=== PATIENT | female | born 1975 | race Caucasian/White ===

== ENCOUNTER 2018-04-08 09:37 | Emergency (ER) | payer SELFPAY ==
[2018-04-08 09:42] VITALS: BP 147/70
[2018-04-08] MEDS ORDERED: NORMAL SALINE 1000 ML 1,000 ML IV ONE ×2 (10:43)
--- NOTE | 2018-04-08 10:44 | ER Document Report ---
ED Medical Screen (RME) - General Chief Complaint: Abdominal Pain Stated Complaint: ABDOMINAL PAIN Time Seen by Provider: 04/08/18 10:38 TRAVEL OUTSIDE OF THE U.S. IN LAST 30 DAYS: No - HPI Notes: 04/08/18 10:44 Patient with history of diverticulitis history of colostomy with lower abdominal pain last 2 days no change in output from colostomy - Related Data Allergies/Adverse Reactions: No Known Allergies Allergy (Unverified 04/08/18 09:48) Past Medical History - Social History Chew tobacco use (# tins/day): No Frequency of alcohol use: None Drug Abuse: None Renal/ Medical History: Reports: Hx Ovarian Cysts. Denies: Hx Peritoneal Dialysis Past Surgical History: Reports: Hx Bowel Surgery - COLOSTOMY Review of Systems - Review of Systems Gastrointestinal: Abdominal pain Physical Exam - Vital signs Vitals: Temp Pulse Resp BP Pulse Ox 97.9 F 88 16 147/70 H 96 04/08/18 09:41 04/08/18 09:41 04/08/18 09:41 04/08/18 09:41 04/08/18 09:41 - Respiratory Respiratory status: No respiratory distress Chest status: Nontender Breath sounds: Normal Chest palpation: Normal - Cardiovascular Rhythm: Regular Heart sounds: Normal auscultation Course - Vital Signs Vital signs: Temp Pulse Resp BP Pulse Ox 97.9 F 88 16 147/70 H 96 04/08/18 09:41 04/08/18 09:41 04/08/18 09:41 04/08/18 09:41 04/08/18 09:41
[2018-04-08 11:50] LABS: ABSOLUTE EOSINOPHILS # (AUTO) 0.1 10^3/uL (0.0-0.6); ABSOLUTE LYMPHOCYTES (AUTO) 3.2 10^3/uL (0.5-4.7); ABSOLUTE MONOCYTES (AUTO) 0.8 10^3/uL (0.1-1.4); ABSOLUTE NEUT (AUTO) 7.2 10^3/uL (1.7-8.2); BASOPHILS % (AUTO) 0.1 % (0-2); EOSINOPHILS % (AUTO) 0.9 % (0-6); HEMATOCRIT 40.9 % (36.0-47.0); HEMOGLOBIN 14.3 g/dL (12.0-15.5); LYMPHOCYTES % (AUTO) 28.3 % (13-45); MEAN CORPUSCULAR HEMOGLOBIN 30.9 pg (27.0-33.4); MEAN CORPUSCULAR VOLUME 88 fl (80-97); MONOCYTES % (AUTO) 6.7 % (3-13); PLATELET COUNT 293 10^3/uL (150-450); RED BLOOD COUNT 4.63 10^6/uL (3.72-5.28); TOTAL CELLS COUNTED % (AUTO) 100 %; WHITE BLOOD COUNT 11.3 10^3/uL (4.0-10.5)
[2018-04-08 12:15] LABS: ALANINE AMINOTRANSFERASE 30 U/L (9-52); ALBUMIN 4.4 g/dL (3.5-5.0); ALKALINE PHOSPHATASE 79 U/L (38-126); ANION GAP 9 (5-19); ASPARTATE AMINO TRANSFERASE 23 U/L (14-36); BILIRUBIN,DIRECT 0.4 mg/dL (0.0-0.4); BILIRUBIN,TOTAL 0.4 mg/dL (0.2-1.3); BLOOD UREA NITROGEN 13 mg/dL (7-20); CALCIUM 9.6 mg/dL (8.4-10.2); CARBON DIOXIDE 28 mmol/L (22-30); CHLORIDE 102 mmol/L (98-107); GLUCOSE 111 mg/dL (75-110); LIPASE 48.5 U/L (23-300); POTASSIUM 4.3 mmol/L (3.6-5.0); SODIUM 138.9 mmol/L (137-145); TOTAL PROTEIN 7.9 g/dL (6.3-8.2)
--- NOTE | 2018-04-08 12:26 | RADIOLOGY REPORT (SQ) ---
EXAM DESCRIPTION: CT ABD/PELVIS WITH IV ONLY COMPLETED DATE/TIME: 04/08/2018 11:42 am REASON FOR STUDY: Lower abd pain hx of diverticulitis COMPARISON: None. TECHNIQUE: CT scan of the abdomen and pelvis performed using helical scanning technique with dynamic intravenous contrast injection. No oral contrast. Images reviewed with lung, soft tissue, and bone windows. Reconstructed coronal and sagittal MPR images reviewed. Delayed images for evaluation of the urinary system also acquired. All images stored on PACS. All CT scanners at this facility use dose modulation, iterative reconstruction, and/or weight based d osing when appropriate to reduce radiation dose to as low as reasonably achievable (ALARA). [facility]: Dose Right [facility]: CareDose [facility]: Dose Right [facility]: Teradose 4D [facility]: TopPatch CONTRAST TYPE AND DOSE: contrast/concentration: Isovue 350.00 mg/ml; Total Contrast Delivered: 99.0 ml; Total Saline Delivered: 62.6 ml RENAL FUNCTION: None required. The patient is less than 50 years old. RADIATION DOSE: CT Rad equipment meets quality standard of care and radiation dose reduction techniq ues were employed. CTDIvol: 19.7 - 20.8 mGy. DLP: 2146 mGy-cm.. LIMITATIONS: None. FINDINGS: LOWER CHEST: No significant findings. No nodules or infiltrates. LIVER: Normal size. No masses. No dilated ducts. SPLEEN: Normal size. No focal lesions. PANCREAS: No masses. No significant calcifications. No adjacent inflammation or peripancreatic fluid collections. Pancreatic duct not dilated. GALLBLADDER: No identified stones by CT criteria. No inflammatory changes to suggest cholecystitis. ADRENAL GLANDS: No significant masses or asymmetry. RIGHT KIDNEY AND URETER: No solid masses. No significant calcifications. No hydronephrosis or hyd roureter. LEFT KIDNEY AND URETER: No solid masses. No significant calcifications. No hydronephrosis or hydr oureter. AORTA AND VESSELS: No aneurysm. No dissection. Renal arteries, SMA, celiac without stenosis. RETROPERITONEUM: No retroperitoneal adenopathy, hemorrhage or masses. BOWEL AND PERITONEAL CAVITY: No masses or inflammatory changes. No free fluid or peritoneal masses. APPENDIX: Normal. PELVIS: No mass. No free fluid. Normal bladder. ABDOMINAL WALL: Large left lower quadrant anterior abdominal wall hernia containing nondilated bowel. Defect approaches 6 cm. Smaller fat containing umbilical hernia. BONES: No significant or acute findings. OTHER: No other significant finding. IMPRESSION: Large left lower quadrant abdominal wall hernia. No evidence of bowel obstruction. TECHNICAL DOCUMENTATION: JOB ID: [id number] Quality ID # [id number]: Final reports with documentation of one or more dose reduction techniques (e.g., Au tomated exposure control, adjustment of the mA and/or kV according to patient size, use of iterative reconstruction technique) 2010 [employer]- All Rights Reserved Reading location - IP/workstation name: [email or web address]
[2018-04-08] MEDS ORDERED: KETOROLAC TROMETHAMINE INJ/PF 30 MG/1 ML SDV IV ONE (12:56)
--- NOTE | 2018-04-08 13:40 | ER Document Report ---
ED GI/ - General Chief Complaint: Abdominal Pain Stated Complaint: ABDOMINAL PAIN Time Seen by Provider: 04/08/18 10:38 Mode of Arrival: Ambulatory Information source: Patient Notes: Patient is a 42-year-old obese female comes emergency room complaining of left lower quadrant pain. Patient states that she also is not in the ruptured diverticuli or that is diverticulitis. She states for the past couple of days she has had a ripping feeling every time she sits or stands. As stated she has a history of diverticulitis she actually ruptured diverticuli back in February of last year and she has had a colostomy placement. Just after the original rupture patient had multiple infections that affected the colostomy area patient also developed a large abdominal wall hernia at that time because of all this. Dr. Dajuan alvarenga in [facility] here in [place] did the original surgery. This [facility] is presumably an hour away from [place]. Patient states she just moved to the local area. She denies any fevers no nausea no vomiting no diarrhea. Just the feeling of pain. And it is a ripping type pain. TRAVEL OUTSIDE OF THE U.S. IN LAST 30 DAYS: No - HPI Patient complains to provider of: Abdominal pain. No: Vaginal discharge - 2 days, Vaginal pain Timing/Duration: Sudden, Waxing and waning, Worse Quality of pain: Other - Gripping feeling Severity at maximum: Moderate Pain Level: 3 Context: Other - Movement Location: [facility] Adult Front & Back Diagram: 1 - Area of pain discomfort in the area of the abdominal wall hernia end colostomy Vaginal bleeding (Compared to normal period): None LMP: 1 week ago - Related Data Allergies/Adverse Reactions: No Known Allergies Allergy (Unverified 04/08/18 09:48) Past Medical History - General Information source: Patient Last Menstrual Period: 1 week ago - Social History Smoking Status: Current Every Day Smoker Cigarette use (# per day): Yes Chew tobacco use (# tins/day): No Smoking Education Provided: Yes Frequency of alcohol use: None Drug Abuse: None Family History: Reviewed & Not Pertinent Patient has suicidal ideation: No Patient has homicidal ideation: No Renal/ Medical History: Reports: Hx Ovarian Cysts. Denies: Hx Peritoneal Dialysis Past Surgical History: Reports: Hx Bowel Surgery - COLOSTOMY Review of Systems - Review of Systems Constitutional: No symptoms reported EENT: No symptoms reported Cardiovascular: No symptoms reported Respiratory: No symptoms reported Gastrointestinal: Abdominal pain Genitourinary: No symptoms reported Female Genitourinary: No symptoms reported Musculoskeletal: No symptoms reported Skin: No symptoms reported Hematologic/Lymphatic: No symptoms reported Neurological/Psychological: No symptoms reported -: Yes All other systems reviewed and negative Physical Exam - Vital signs Vitals: Temp Pulse Resp BP Pulse Ox 97.9 F 88 16 147/70 H 96 04/08/18 09:41 04/08/18 09:41 04/08/18 09:41 04/08/18 09:41 04/08/18 09:41 Interpretation: Hypertensive - Notes Notes: Patient is a well-nourished well-developed obese 42-year-old female. No apparent distress. Actually resting comfortably. - General General appearance: Appears well, Alert - Respiratory Respiratory status: No respiratory distress Chest status: Nontender, Tender Breath sounds: Normal. No: Rales, Rhonchi, Stridor, Wheezing Chest palpation: Normal - Cardiovascular Rhythm: Regular Heart sounds: Normal auscultation Murmur: No - Abdominal Inspection: Striae, Obese Distension: Distended Bowel sounds: Normal Tenderness: Tender Organomegaly: No organomegaly Notes: Examination patient's abdomen shows that she has a large rotund lower abdominal exam. She has a colostomy that she does not wear a bag on. She only uses a diaper to catch the fecal material. Examination of the area is shows pinkish flesh tone color that appears to be healthy. There is no sign of infection or erythema surrounding the entire area. Descending below the umbilicus is a large herniated area that he was described on the CT that shows no incarceration and no obstruction and no strangulation. The presentation is quite astounding. Palpation of this area shows some mild tenderness but no overt pain. Further inspection much further below the area shows increasing amount of tenderness. The tenderness is more along the line of the scar tissue that I could palpate. Movement away from midline by stretching increases discomfort and pain. - Neurological Neuro grossly intact: Yes Cognition: Normal Orientation: AAOx4 [place] Coma Scale Eye Opening: Spontaneous [place] Coma Scale Verbal: Oriented [place] Coma Scale Motor: Extensor Response [place] Coma Scale Total: 11 Speech: Normal - Skin Skin Temperature: Warm Skin Moisture: Dry Skin Color: Normal, [place] Irregularity with: Swelling, Tenderness, Thickening - Area described in the abdominal section Course - Re-evaluation Re-evalutation: 04/08/18 13: I discussed the case with Dr. Guerrero. He also reviewed the CT report and the actual CT presentation. He agreed that with no postradiation incarceration or any structure in that there was limited things we could do here. He did advise that we proceed with checking urine to make sure that it is negative and if so we can discharge her home to follow-up with Dr. Graff her surgeon. 04/08/18 15:12 I have Patient here waiting for urine for extended period time and urine is negative. The some alert go home and follow-up with her primary care the slight elevation in white count was probably due to secondary discomfort that she has been experiencing. 04/08/18 15:12 As stated I did discuss the case with Dr. Spence he is in agreement that patient can follow-up with her surgeon sometime this week. For any reason she has a problem or increasing pain she come back and get a recheck. - Vital Signs Vital signs: Temp Pulse Resp BP Pulse Ox 97.9 F 88 16 147/70 H 96 04/08/18 09:41 04/08/18 09:41 04/08/18 09:41 04/08/18 09:41 04/08/18 09:41 - Laboratory Result Diagrams: 04/08/18 11:24 04/08/18 11:24 Laboratory results interpreted by me: 04/08/18 04/08/18 04/08/18 11:24 11:24 13:08 WBC 11.3 H Glucose 111 H Urine Blood SMALL H Discharge - Discharge Clinical Impression: Hernia Abdominal pain Qualifiers: Abdominal location: left lower quadrant Qualified Code(s): R10.32 - Left lower quadrant pain Condition: Stable Disposition: HOME, SELF-CARE Instructions: Abdominal Pain ([facility]), Hernia ([facility]) Additional Instructions: As we discussed you need to contact Dr. Graff as soon as possible to have her reexamined this Cardia. This is 1 of those things that even though here sliding right now with not having it repaired they can turn bad at any time. Currently it is not obstructed it is not strangulated is not incarcerated at this time is time to fix such a large defect. I am assuming that that is where your pain and discomfort is coming from that along with the scar tissue that you have in the area when scar tissue stretches it causes pain. This is very important that she see Dr. Graff as soon as possible. If for any reason you have increasing pain or you spike a fever or you have any concerns or come back and let us check this out again. Forms: Elevated Blood Pressure Referrals: MISSY GRAFF MD [NO LOCAL MD] - Follow up as needed
[2018-04-08 15:05] LABS: APPEARANCE,URINE CLEAR; BILIRUBIN,URINE NEGATIVE (NEGATIVE); COLOR,URINE YELLOW; GLUCOSE, URINE NEGATIVE (NEGATIVE); KETONES,URINE NEGATIVE (NEGATIVE); LEUKOCYTE ESTERASE,URINE NEGATIVE (NEGATIVE); NITRITE,URINE NEGATIVE (NEGATIVE); PROTEIN,URINE NEGATIVE (NEGATIVE); URINE SPECIFIC GRAVITY 1.058; UROBILINOGEN,URINE NEGATIVE mg/dL (<2.0)
== END 2018-04-08 15:26 | disposition home or self-care (01) ==
LOC: ER 09:37
DX: K46.9 Unspecified abdominal hernia without obstruction or gangrene (principal); R10.32 Left lower quadrant pain; F17.210 Nicotine dependence, cigarettes, uncomplicated; Z93.3 Colostomy status
CPT/HCPCS: 99284; 96361; 96374; 36415; 83690; 85025; 80053; 81001; 83605; 74177; J1885

== ENCOUNTER 2018-07-25 14:01 | Inpatient (IN) | payer SELFPAY ==
[2018-07-25] MEDS ORDERED: PIPERACILLIN/TAZOBACTAM 4.5 GM VIAL IV ONE (14:38)
--- NOTE | 2018-07-25 14:40 | ER Document Report ---
ED Medical Screen (RME) - General Chief Complaint: Arm Problem Stated Complaint: RASH Time Seen by Provider: 07/25/18 14:38 Notes: 42 years old female presents today with left proximal arm and left axillary swelling redness and warmness. With a history of multiple staph infection. Cellulitis of the proximal left arm and axilla TRAVEL OUTSIDE OF THE U.S. IN LAST 30 DAYS: No - Related Data Allergies/Adverse Reactions: No Known Allergies Allergy (Verified 07/25/18 14:04) Past Medical History Renal/ Medical History: Reports: Hx Ovarian Cysts. Denies: Hx Peritoneal Dialysis Past Surgical History: Reports: Hx Bowel Surgery - COLOSTOMY Physical Exam - Vital signs Vitals: Temp Pulse Resp BP Pulse Ox 98.7 F 104 H 16 124/78 94 07/25/18 14:18 07/25/18 14:18 07/25/18 14:18 07/25/18 14:18 07/25/18 14:18 Course - Vital Signs Vital signs: Temp Pulse Resp BP Pulse Ox 98.7 F 104 H 16 124/78 94 07/25/18 14:18 07/25/18 14:18 07/25/18 14:18 07/25/18 14:18 07/25/18 14:18
[2018-07-25 15:11] LABS: ABSOLUTE BASOPHILS # (AUTO) 0.1 10^3/uL (0.0-0.2); ABSOLUTE EOSINOPHILS # (AUTO) 0.3 10^3/uL (0.0-0.6); ABSOLUTE LYMPHOCYTES (AUTO) 3.3 10^3/uL (0.5-4.7); ABSOLUTE NEUT (AUTO) 7.7 10^3/uL (1.7-8.2); BASOPHILS % (AUTO) 0.6 % (0-2); EOSINOPHILS % (AUTO) 2.6 % (0-6); HEMATOCRIT 44.3 % (36.0-47.0); HEMOGLOBIN 14.7 g/dL (12.0-15.5); LYMPHOCYTES % (AUTO) 26.3 % (13-45); MEAN CORPUSCULAR HEMOGLOBIN 29.4 pg (27.0-33.4); MEAN CORPUSCULAR HGB CONC 33.1 g/dL (32.0-36.0); MEAN CORPUSCULAR VOLUME 89 fl (80-97); MONOCYTES % (AUTO) 8.2 % (3-13); PLATELET COUNT 283 10^3/uL (150-450); RED BLOOD COUNT 4.99 10^6/uL (3.72-5.28); SEGMENTED NEUTROPHILS % (AUTO) 62.3 % (42-78); TOTAL CELLS COUNTED % (AUTO) 100 %; WHITE BLOOD COUNT 12.4 10^3/uL (4.0-10.5)
[2018-07-25 15:17] LABS: ALANINE AMINOTRANSFERASE 30 U/L (9-52); ALBUMIN 4.4 g/dL (3.5-5.0); ALKALINE PHOSPHATASE 104 U/L (38-126); ANION GAP 9 (5-19); ASPARTATE AMINO TRANSFERASE 26 U/L (14-36); BILIRUBIN,DIRECT 0.3 mg/dL (0.0-0.4); BILIRUBIN,TOTAL 0.4 mg/dL (0.2-1.3); BLOOD UREA NITROGEN 12 mg/dL (7-20); CALCIUM 9.2 mg/dL (8.4-10.2); CARBON DIOXIDE 31 mmol/L (22-30); CHLORIDE 101 mmol/L (98-107); GLUCOSE 105 mg/dL (75-110); POTASSIUM 4.3 mmol/L (3.6-5.0); SODIUM 140.8 mmol/L (137-145); TOTAL PROTEIN 7.5 g/dL (6.3-8.2)
[2018-07-25] MEDS ORDERED: VANCOMYCIN HCL INJ 1000 MG VIAL IV ONE (16:24)
--- NOTE | 2018-07-25 16:25 | ER Document Report ---
ED General - General Chief Complaint: Arm Problem Stated Complaint: RASH Time Seen by Provider: 07/25/18 14:38 Mode of Arrival: Ambulatory Information source: Patient Notes: This is a 42-year-old female with a history of ulcerative colitis, diverticulitis (colostomy) who presents to the emergency room with increasing arm erythema and pain. TRAVEL OUTSIDE OF THE U.S. IN LAST 30 DAYS: No - HPI Onset: Last week Onset/Duration: Gradual Quality of pain: No pain Severity: None Pain Level: Denies Associated symptoms: Chills, Fever. denies: Shortness of breath Exacerbated by: Denies Relieved by: Denies Similar symptoms previously: Yes Recently seen / treated by doctor: No - Related Data Allergies/Adverse Reactions: No Known Allergies Allergy (Verified 07/25/18 14:04) Past Medical History - General Information source: Patient - Social History Smoking Status: Current Every Day Smoker Cigarette use (# per day): Yes - Half a pack per day Chew tobacco use (# tins/day): No Frequency of alcohol use: Occasional Drug Abuse: None Lives with: Family Family History: Reviewed & Not Pertinent Patient has suicidal ideation: No Patient has homicidal ideation: No - Past Medical History Cardiac Medical History: Reports: None Pulmonary Medical History: Reports: None EENT Medical History: Reports: None Neurological Medical History: Reports: None Endocrine Medical History: Reports: None Renal/ Medical History: Reports: Hx Ovarian Cysts. Denies: Hx Peritoneal Dialysis GI Medical History: Reports: Hx Diverticulitis - Diverticula, Hx Ulcerative Colitis, Other - Colostomy Musculoskeletal Medical History: Reports None Skin Medical History: Reports Hx MRSA Psychiatric Medical History: Reports: None Traumatic Medical History: Reports: None Infectious Medical History: Reports: Hx MRSA Past Surgical History: Reports: Hx Bowel Surgery - COLOSTOMY, Hx Tubal Ligation Review of Systems - Review of Systems Constitutional: denies: Chills, Fever EENT: No symptoms reported Cardiovascular: No symptoms reported Respiratory: No symptoms reported Gastrointestinal: See HPI Genitourinary: No symptoms reported Female Genitourinary: No symptoms reported Musculoskeletal: No symptoms reported Skin: See HPI Hematologic/Lymphatic: No symptoms reported Neurological/Psychological: No symptoms reported Physical Exam - Vital signs Vitals: Temp Pulse Resp BP Pulse Ox 98.7 F 104 H 16 124/78 94 07/25/18 14:18 07/25/18 14:18 07/25/18 14:18 07/25/18 14:18 07/25/18 14:18 Notes: Physical exam: GENERAL: Patient is alert and oriented x3, no acute distress HEAD: Atraumatic, normocephalic. EYES: Pupils equal round and reactive to light, extraocular movements intact, sclera anicteric, conjunctiva are normal. ENT: TMs normal, nares patent, oropharynx clear without exudates. Moist mucous membranes. NECK: Normal range of motion, supple without obvious mass or JVD. LUNGS: Breath sounds clear to auscultation bilaterally and equal. No wheezes rales or rhonchi. HEART: Regular rate and rhythm without murmurs, rubs or gallops. ABDOMEN: Soft, normoactive bowel sounds. No tenderness to palpation. No guarding, no rebound. No masses appreciated. EXTREMITIES: Left axilla: Dry adenitis suppurativa. There is no fluctuance but there is an area of tenderness with a large area of erythema. NEUROLOGICAL: Cranial nerves II through XII grossly intact. Normal speech, moving all extremities. PSYCH: Normal mood, normal affect. SKIN: Large cellulitic area above Course - Vital Signs Vital signs: Temp Pulse Resp BP Pulse Ox 97.9 F 86 18 131/60 H 97 07/25/18 23:29 07/25/18 23:29 07/25/18 23:29 07/25/18 23:29 07/25/18 23:29 - Laboratory Result Diagrams: 07/25/18 14:47 07/25/18 14:47 Laboratory results interpreted by me: 07/25/18 07/25/18 07/25/18 14:47 14:47 14:55 WBC 12.4 H Carbon Dioxide 31 H POC Glucose 123 H - Diagnostic Test Radiology reviewed: Image reviewed, Reports reviewed - CT of the extremity shows no evidence of abscess at this point Critical Care Note - Critical Care Note Total time excluding time spent on procedures (mins): 60 Discharge - Discharge Clinical Impression: Cellulitis Condition: Stable Disposition: ADMITTED INPATIENT Admitting Provider: Hospitalist - Dr Alvarado Unit Admitted: Medical Floor
[2018-07-25] MEDS ORDERED: HYDROMORPHONE HCL INJ/PF 2 MG/ML AMPULE IV ONE (16:49)
--- NOTE | 2018-07-25 17:59 | RADIOLOGY REPORT (SQ) ---
EXAM DESCRIPTION: CT LT UPPER EXTREMITY WITH COMPLETED DATE/TIME: 07/25/2018 5:43 pm REASON FOR STUDY: r/o prox arm abscess COMPARISON: None. TECHNIQUE: Axial imaging performed through the left upper extremity windowed for bone and soft tissu es. 75 mL Omnipaque 350 low osmolar contrast was administered. Renal function testing was not performed. The patient is less than [address] scanners at this facility use dose modulation, iterative reconstruction, and/or weight based d osing when appropriate to reduce radiation dose to as low as reasonably achievable (ALARA). [facility]: Dose Right [facility]: CareDose [facility]: Dose Right [facility]: Teradose 4D [facility]: Smart [employer] RADIATION DOSE: CT Rad equipment meets quality standard of care and radiation dose reduction techniq ues were employed. CTDIvol: 2.6 mGy. DLP: 118 mGy-cm. mGy. LIMITATIONS: None. FINDINGS: SOFT TISSUES: There is skin thickening in the anterior aspect of the left arm. There is m ild subcutaneous stranding. This is most prominent immediately below the shoulder. There is no abno rmal fluid collection to suggest an abscess. BONE: No significant abnormality. IMPRESSION: Apparent cellulitis in the left arm with no evidence of an abscess at this time. TECHNICAL DOCUMENTATION: JOB ID: [id number] Quality ID # [id number]: Final reports with documentation of one or more dose reduction techniques (e.g., Au tomated exposure control, adjustment of the mA and/or kV according to patient size, use of iterative reconstruction technique) 2010 [employer]- All Rights Reserved Reading location - IP/workstation name: [email or web address]
--- NOTE | 2018-07-25 18:21 | PDOC H&P ---
History of Present Illness History of Present Illness: AUSTEN PRESTON is a 42 year old female who presents to the ER complaining of redness and swelling of her left upper arm. She said she noticed a couple of "bumps" in her left axilla a couple of weeks ago, and when they got big enough she tried to pop them. She said about a week ago she noticed the redness starting in her left axilla. She said the redness has spread and is gotten very tender. She is not sure if she has had a fever, but she was afebrile here. She has not been to see a doctor about this. She said "they gave me MRSA" when she had a colostomy done a couple years ago as a result of her ulcerative colitis, and at that time she apparently had a staph infection that turned out to be MRSA. Past Surgical History Past Surgical History: Reports: Tubal Ligation Social History Smoking Status: Current Every Day Smoker Family History Family History: Reviewed & Not Pertinent Parental Family History Reviewed: Yes - Noncontributory Children Family History Reviewed: NA - Noncontributory Sibling(s) Family History Reviewed.: NA - Noncontributory Medication/Allergy Allergies/Adverse Reactions: No Known Allergies Allergy (Verified 07/25/18 14:04) Review of Systems All systems: reviewed and no additional remarkable complaints except as stated - 10 point review of systems was conducted with the patient and was negative except as noted above Physical Exam Vital Signs: Temp Pulse Resp BP Pulse Ox 98.7 F 104 H 16 124/78 94 07/25/18 14:18 07/25/18 14:18 07/25/18 14:18 07/25/18 14:18 07/25/18 14:18 Intake & Output 07/24/18 07/25/18 07/26/18 06:59 06:59 06:59 Weight 99 kg General appearance: PRESENT: no acute distress - She was a bit somnolent and her speech was a little bit delayed because they gave her a milligram of IV Dilaudid in the ER, cooperative, disheveled, morbidly obese Head exam: PRESENT: atraumatic, normocephalic Eye exam: PRESENT: EOMI, PERRLA. ABSENT: conjunctival injection, nystagmus, scleral icterus Ear exam: PRESENT: normal external ear exam Mouth exam: PRESENT: moist, neck supple Throat exam: ABSENT: post pharyngeal erythema Neck exam: PRESENT: full ROM. ABSENT: carotid bruit, JVD, lymphadenopathy, meningismus, tenderness, thyromegaly Respiratory exam: PRESENT: clear to auscultation rio, symmetrical, unlabored. ABSENT: accessory muscle use, rales, rhonchi, tachypnea, wheezes Cardiovascular exam: PRESENT: RRR, +S1, +S2 Vascular exam: PRESENT: normal capillary refill GI/Abdominal exam: PRESENT: normal bowel sounds, soft, other - She had a left lower quadrant colostomy which had gas and stool in the bag. ABSENT: distended, guarding, rebound, tenderness Extremities exam: ABSENT: clubbing, pedal edema Musculoskeletal exam: PRESENT: normal inspection. ABSENT: deformity Neurological exam: PRESENT: alert, awake, oriented to person, oriented to place, oriented to time, oriented to situation, CN II-XII grossly intact. ABSENT: motor sensory deficit Psychiatric exam: PRESENT: flat affect Skin exam: PRESENT: erythema - She had erythema that covers the medial aspect of the left upper arm, with 2 tender nodular areas close to the axilla on the arm. She had 2 areas in the axilla that look like pimples that had drained and were in the process of healing. She had no exudates. ABSENT: dry, warm Results Laboratory Results: 07/25/18 14:47 07/25/18 14:47 07/25/18 07/25/18 07/25/18 14:47 14:47 14:47 WBC 12.4 H RBC 4.99 Hgb 14.7 Hct 44.3 MCV 89 MCH 29.4 MCHC 33.1 RDW 14.0 Plt Count 283 Seg Neutrophils % 62.3 Lymphocytes % 26.3 Monocytes % 8.2 Eosinophils % 2.6 Basophils % 0.6 Absolute Neutrophils 7.7 Absolute Lymphocytes 3.3 Absolute Monocytes 1.0 Absolute Eosinophils 0.3 Absolute Basophils 0.1 Sodium 140.8 Potassium 4.3 Chloride 101 Carbon Dioxide 31 H Anion Gap 9 BUN 12 Creatinine 0.62 Est GFR ( Amer) > 60 Est GFR (Non-Af Amer) > 60 Glucose 105 Lactic Acid 1.3 Calcium 9.2 Total Bilirubin 0.4 AST 26 ALT 30 Alkaline Phosphatase 104 Total Protein 7.5 Albumin 4.4 Impressions: Upper Extremity CT 07/25/18 16:49 IMPRESSION: Apparent cellulitis in the left arm with no evidence of an abscess at this time. Assessment & Plan - Diagnosis (1) Cellulitis of left upper extremity Is this a current diagnosis for this admission?: Yes Plan: She got vancomycin and Zosyn in the ER. I am going to give her a trial of Ancef. If she responds well she can be transitioned over to Keflex. Blood cultures were drawn in the ER we will keep an eye out for those to see if they turn positive. (2) History of ulcerative colitis Is this a current diagnosis for this admission?: Yes Plan: Once her home medications are entered in the computer we will resume those - Time Time Spent: 50 to 70 Minutes - Inpatient Certification Based on my medical assessment, after consideration of the patient's comorbidities, presenting symptoms, or acuity I expect that the services needed warrant INPATIENT care.: Yes I certify that my determination is in accordance with my understanding of Medicare's requirements for reasonable and necessary INPATIENT services [42 CFR 412.3e].: Yes Medical Necessity: Need for IV Antibiotics
[2018-07-25] MEDS ORDERED: ACETAMINOPHEN 650 MG SUPP.RECT PR PRN (20:38)
[2018-07-25] MEDS ORDERED: MORPHINE SULFATE 10 MG/ML INJ IV PRN (20:38)
[2018-07-25] MEDS ORDERED: MAGNESIUM HYDROXIDE SUSP 30 ML UDCUP PO PRN (20:38)
[2018-07-25] MEDS ORDERED: LABETALOL HCL INJ 20 MG/4 ML DISP.SYRIN IV PRN (20:38)
[2018-07-25] MEDS ORDERED: ACETAMINOPHEN 325 MG TABLET PO PRN (20:38)
[2018-07-25] MEDS ORDERED: MAG HYDROX/AL HYDROX/SIMETH SUSP 30 ML UDCUP PO PRN (20:38)
[2018-07-25] MEDS: MORPHINE SULFATE 10 MG/ML INJ IV PRN (21:04)
[2018-07-25] MEDS ORDERED: PANTOPRAZOLE SODIUM 40 MG VIAL IV SCH (22:00)
[2018-07-25] MEDS: DOCUSATE SODIUM 100 MG CAPSULE PO SCH (22:57)
[2018-07-26] MEDS: CEFAZOLIN 1 GM/D5W RTU 1 GM/50 ML RTUPB IV SCH ×4 (00:39→19:34)
[2018-07-26] MEDS: HEPARIN SOD (PORCINE) 5,000 UNIT/ML 1 ML SYRINGE SUBCUT SCH ×4 (04:15→21:15)
[2018-07-26] MEDS: MORPHINE SULFATE 10 MG/ML INJ IV PRN ×4 (04:25→21:16)
[2018-07-26 06:41] LABS: HEMATOCRIT 39.4 % (36.0-47.0); HEMOGLOBIN 13.6 g/dL (12.0-15.5); MEAN CORPUSCULAR HEMOGLOBIN 30.2 pg (27.0-33.4); MEAN CORPUSCULAR HGB CONC 34.4 g/dL (32.0-36.0); MEAN CORPUSCULAR VOLUME 88 fl (80-97); PLATELET COUNT 231 10^3/uL (150-450); RED BLOOD COUNT 4.48 10^6/uL (3.72-5.28); RED CELL DISTRIBUTION WIDTH 13.7 % (11.5-14.0); WHITE BLOOD COUNT 8.9 10^3/uL (4.0-10.5)
[2018-07-26] MEDS: PANTOPRAZOLE SODIUM 40 MG VIAL IV SCH ×2 (06:48→19:33)
[2018-07-26] MEDS: DOCUSATE SODIUM 100 MG CAPSULE PO SCH ×2 (09:25→19:33)
--- NOTE | 2018-07-26 16:32 | PDOC PROGRESS REPORT ---
Subjective Progress Note for:: 07/26/18 Subjective:: No adverse events overnight. No fevers. She says her arm is tumbler tender but she feels like the swelling has gone down. She has not noticed any drainage from any of the boils in her axilla. Reason For Visit: LEFT ARM CELLULITIS Physical Exam Vital Signs: Temp Pulse Resp BP Pulse Ox 98.2 F 72 16 114/45 L 94 07/26/18 15:07 07/26/18 15:07 07/26/18 15:07 07/26/18 15:07 07/26/18 15:07 Intake & Output 07/25/18 07/26/18 07/27/18 06:59 06:59 06:59 Intake Total 50 50 Balance 50 50 Weight 99.6 kg General appearance: PRESENT: no acute distress, cooperative Respiratory exam: PRESENT: clear to auscultation rio, symmetrical, unlabored. ABSENT: accessory muscle use, rales, rhonchi, tachypnea, wheezes Cardiovascular exam: PRESENT: RRR, +S1, +S2 Vascular exam: PRESENT: normal capillary refill GI/Abdominal exam: PRESENT: normal bowel sounds, soft, other - She had a left lower quadrant colostomy which had gas and stool in the bag. ABSENT: distended, guarding, rebound, tenderness Extremities exam: ABSENT: clubbing, pedal edema Musculoskeletal exam: PRESENT: normal inspection. ABSENT: deformity Neurological exam: PRESENT: alert, awake, oriented to person, oriented to place, oriented to time, oriented to situation Psychiatric exam: PRESENT: flat affect Skin exam: PRESENT: erythema - She had erythema that covers the medial aspect of the left upper arm, with 2 tender nodular areas close to the axilla on the arm. She had 2 areas in the axilla that look like pimples that had drained and were in the process of healing. She had no exudates. The scope of the erythema has not changed very much, but the erythema has decreased in intensity and the 2 tender nodules on her upper arm have decreased in size Results Laboratory Results: 07/26/18 06:11 07/25/18 14:47 07/26/18 06:11 WBC 8.9 RBC 4.48 Hgb 13.6 Hct 39.4 MCV 88 MCH 30.2 MCHC 34.4 RDW 13.7 Plt Count 231 Impressions: Upper Extremity CT 07/25/18 16:49 IMPRESSION: Apparent cellulitis in the left arm with no evidence of an abscess at this time. Assessment & Plan - Diagnosis (1) Cellulitis of left upper extremity Is this a current diagnosis for this admission?: Yes Plan: Improving with Ancef. We will continue with IV antibiotics for now. Blood cultures are pending. Nothing at the site of the infection on the arm that appears amenable to culture. (2) History of ulcerative colitis Is this a current diagnosis for this admission?: Yes Plan: We will continue her home medications - Time Time Spent with patient: 15-24 minutes
[2018-07-27] MEDS: CEFAZOLIN 1 GM/D5W RTU 1 GM/50 ML RTUPB IV SCH ×5 (00:42→23:39)
[2018-07-27] MEDS: MORPHINE SULFATE 10 MG/ML INJ IV PRN ×4 (04:46→22:30)
[2018-07-27] MEDS: HEPARIN SOD (PORCINE) 5,000 UNIT/ML 1 ML SYRINGE SUBCUT SCH ×3 (06:06→22:30)
[2018-07-27] MEDS: PANTOPRAZOLE SODIUM 40 MG VIAL IV SCH ×2 (06:07→18:17)
[2018-07-27 07:32] LABS: HEMATOCRIT 40.8 % (36.0-47.0); HEMOGLOBIN 13.9 g/dL (12.0-15.5); MEAN CORPUSCULAR HEMOGLOBIN 30.1 pg (27.0-33.4); MEAN CORPUSCULAR HGB CONC 34.1 g/dL (32.0-36.0); MEAN CORPUSCULAR VOLUME 89 fl (80-97); PLATELET COUNT 252 10^3/uL (150-450); RED BLOOD COUNT 4.61 10^6/uL (3.72-5.28); RED CELL DISTRIBUTION WIDTH 14.1 % (11.5-14.0); WHITE BLOOD COUNT 7.5 10^3/uL (4.0-10.5)
[2018-07-27] MEDS: DOCUSATE SODIUM 100 MG CAPSULE PO SCH ×2 (09:01→18:17)
[2018-07-27] MEDS: NICOTINE 21 MG/24 HR PATCH.TD24 TD PRN (12:45)
--- NOTE | 2018-07-27 14:45 | PDOC PROGRESS REPORT ---
Subjective Progress Note for:: 07/27/18 Subjective:: No adverse events overnight. No fevers. The pain in her arm has gotten better. She says she feels like the swelling is gone down. Reason For Visit: LEFT ARM CELLULITIS Physical Exam Vital Signs: Temp Pulse Resp BP Pulse Ox 98.1 F 84 18 124/75 99 07/27/18 12:00 07/27/18 12:00 07/27/18 12:00 07/27/18 12:00 07/27/18 12:00 Intake & Output 07/26/18 07/27/18 07/28/18 06:59 06:59 06:59 Intake Total 50 250 Balance 50 250 Weight 99.6 kg 103.5 kg General appearance: PRESENT: no acute distress, cooperative Respiratory exam: PRESENT: clear to auscultation rio, symmetrical, unlabored. ABSENT: accessory muscle use, rales, rhonchi, tachypnea, wheezes Cardiovascular exam: PRESENT: RRR, +S1, +S2 Vascular exam: PRESENT: normal capillary refill GI/Abdominal exam: PRESENT: normal bowel sounds, soft, other - She had a left lower quadrant colostomy which had gas and stool in the bag. ABSENT: distended, guarding, rebound, tenderness Extremities exam: ABSENT: clubbing, pedal edema Musculoskeletal exam: PRESENT: normal inspection. ABSENT: deformity Neurological exam: PRESENT: alert, awake, oriented to person, oriented to place, oriented to time, oriented to situation Psychiatric exam: PRESENT: flat affect Skin exam: PRESENT: erythema - She had erythema that covers the medial aspect of the left upper arm, with 2 tender nodular areas close to the axilla on the arm. She had 2 areas in the axilla that look like pimples that had drained and were in the process of healing. She had no exudates. The overall scope of the erythema still has not changed much, but the swelling and the intensity of the erythema has gone down substantially. The 2 areas on the medial aspect of the upper arm are barely swollen now Results Laboratory Results: 07/27/18 06:20 07/25/18 14:47 07/27/18 06:20 WBC 7.5 RBC 4.61 Hgb 13.9 Hct 40.8 MCV 89 MCH 30.1 MCHC 34.1 RDW 14.1 H Plt Count 252 Impressions: Upper Extremity CT 07/25/18 16:49 IMPRESSION: Apparent cellulitis in the left arm with no evidence of an abscess at this time. Assessment & Plan - Diagnosis (1) Cellulitis of left upper extremity Is this a current diagnosis for this admission?: Yes Plan: Continue IV antibiotics. Blood cultures have been negative. Hope to be able to transition her to oral antibiotics in 1-2 days. (2) History of ulcerative colitis Is this a current diagnosis for this admission?: Yes - Time Time Spent with patient: 15-24 minutes
[2018-07-28] MEDS: MORPHINE SULFATE 10 MG/ML INJ IV PRN ×4 (04:56→22:55)
[2018-07-28] MEDS: CEFAZOLIN 1 GM/D5W RTU 1 GM/50 ML RTUPB IV SCH ×4 (06:04→23:03)
[2018-07-28] MEDS: HEPARIN SOD (PORCINE) 5,000 UNIT/ML 1 ML SYRINGE SUBCUT SCH ×3 (06:05→22:55)
[2018-07-28] MEDS: PANTOPRAZOLE SODIUM 40 MG VIAL IV SCH ×2 (06:05→17:13)
[2018-07-28 06:43] LABS: HEMATOCRIT 40.7 % (36.0-47.0); HEMOGLOBIN 13.7 g/dL (12.0-15.5); MEAN CORPUSCULAR HEMOGLOBIN 29.7 pg (27.0-33.4); MEAN CORPUSCULAR HGB CONC 33.6 g/dL (32.0-36.0); MEAN CORPUSCULAR VOLUME 88 fl (80-97); PLATELET COUNT 254 10^3/uL (150-450); RED CELL DISTRIBUTION WIDTH 14.1 % (11.5-14.0); WHITE BLOOD COUNT 7.5 10^3/uL (4.0-10.5)
[2018-07-28] MEDS: DOCUSATE SODIUM 100 MG CAPSULE PO SCH ×2 (10:07→17:15)
[2018-07-28] MEDS: NICOTINE 21 MG/24 HR PATCH.TD24 TD PRN (13:59)
--- NOTE | 2018-07-28 15:12 | PDOC PROGRESS REPORT ---
Subjective Progress Note for:: 07/28/18 Subjective:: No adverse events overnight. No new complaints. Vital signs been stable. No fevers. She been eating and drinking without difficulty. Says her arm does not feel as sore. Reason For Visit: LEFT ARM CELLULITIS Physical Exam Vital Signs: Temp Pulse Resp BP Pulse Ox 98.0 F 66 16 120/58 L 95 07/28/18 12:05 07/28/18 12:05 07/28/18 12:05 07/28/18 12:05 07/28/18 12:05 Intake & Output 07/27/18 07/28/18 07/29/18 06:59 06:59 06:59 Intake Total 250 700 Balance 250 700 Weight 103.5 kg 103.8 kg General appearance: PRESENT: no acute distress, cooperative Respiratory exam: PRESENT: clear to auscultation rio, symmetrical, unlabored. ABSENT: accessory muscle use, rales, rhonchi, tachypnea, wheezes Cardiovascular exam: PRESENT: RRR, +S1, +S2 Vascular exam: PRESENT: normal capillary refill GI/Abdominal exam: PRESENT: normal bowel sounds, soft, other - She had a left lower quadrant colostomy which had gas and stool in the bag. ABSENT: distended, guarding, rebound, tenderness Extremities exam: ABSENT: clubbing, pedal edema Musculoskeletal exam: PRESENT: normal inspection. ABSENT: deformity Neurological exam: PRESENT: alert, awake, oriented to person, oriented to place, oriented to time, oriented to situation Psychiatric exam: PRESENT: flat affect Skin exam: PRESENT: erythema - She had erythema that covers the medial aspect of the left upper arm, with 2 tender nodular areas close to the axilla on the arm. She had 2 areas in the axilla that look like pimples that had drained and were in the process of healing. She had no exudates. The erythema has almost completely faded. The 2 nodular areas in the upper arm have almost completely resolved regarding the nodularity. Results Laboratory Results: 07/28/18 06:27 07/25/18 14:47 07/28/18 06:27 WBC 7.5 RBC 4.60 Hgb 13.7 Hct 40.7 MCV 88 MCH 29.7 MCHC 33.6 RDW 14.1 H Plt Count 254 Impressions: Upper Extremity CT 07/25/18 16:49 IMPRESSION: Apparent cellulitis in the left arm with no evidence of an abscess at this time. Assessment & Plan - Diagnosis (1) Cellulitis of left upper extremity Is this a current diagnosis for this admission?: Yes Plan: I will give her another day of IV antibiotics, and then will probably able to send her home tomorrow on some oral Keflex. (2) History of ulcerative colitis Is this a current diagnosis for this admission?: Yes Plan: We will continue her home medications - Time Time Spent with patient: 15-24 minutes
[2018-07-29] MEDS: CEFAZOLIN 1 GM/D5W RTU 1 GM/50 ML RTUPB IV SCH ×2 (05:03→12:15)
[2018-07-29] MEDS: MORPHINE SULFATE 10 MG/ML INJ IV PRN ×3 (05:06→15:48)
[2018-07-29] MEDS: HEPARIN SOD (PORCINE) 5,000 UNIT/ML 1 ML SYRINGE SUBCUT SCH ×2 (05:09→15:49)
[2018-07-29] MEDS: DOCUSATE SODIUM 100 MG CAPSULE PO SCH (10:30)
[2018-07-29 16:49] VITALS: BP 126/70
--- NOTE | 2018-07-29 17:07 | PDOC DISCHARGE SUMMARY ---
General - Admit/Disc Date/PCP Admission Date/Primary Care Provider: 07/25/18 19:37 Discharge Date: 07/29/18 - Discharge Diagnosis (1) Cellulitis of left upper extremity Is this a current diagnosis for this admission?: Yes Summary: Responded very well to Ancef. She will finish a course of Keflex as an outpatient. (2) History of ulcerative colitis Is this a current diagnosis for this admission?: Yes Summary: She has a colostomy. She is not on any routine medications. - Additional Information Discharge Diet: Regular Discharge Activity: Activity As Tolerated Prescriptions: Cephalexin [Cephalexin 500 MG Tablet] 1 tab PO QID #40 tablet Home Medications: Methadone HCl [Dolophine 10 mg Tablet] 130 mg PO DAILY 07/26/18 Cephalexin [Cephalexin 500 MG Tablet] 1 tab PO QID #40 tablet 07/29/18 History of Present Illness History of Present Illness: AUSTEN PRESTON is a 42 year old female who presents to the ER complaining of redness and swelling of her left upper arm. She said she noticed a couple of "bumps" in her left axilla a couple of weeks ago, and when they got big enough she tried to pop them. She said about a week ago she noticed the redness starting in her left axilla. She said the redness has spread and is gotten very tender. She is not sure if she has had a fever, but she was afebrile here. She has not been to see a doctor about this. She said "they gave me MRSA" when she had a colostomy done a couple years ago as a result of her ulcerative colitis, and at that time she apparently had a staph infection that turned out to be MRSA. Hospital Course Hospital Course: She responded very well to Ancef. Blood cultures never turned positive. She will finish a course of Keflex as an outpatient. She does not have a primary care provider but was encouraged to get one. I recommended that she come back into the emergency department if her redness and swelling return, or if she develops a fever. She is been afebrile here the entire time. Her labs and examination were reassuring and she was discharged in good condition. Physical Exam Vital Signs: Temp Pulse Resp BP Pulse Ox 98.3 F 82 16 126/70 H 95 07/29/18 16:45 07/29/18 16:45 07/29/18 16:45 07/29/18 16:45 07/29/18 16:45 Intake & Output 07/28/18 07/29/18 07/30/18 06:59 06:59 06:59 Intake Total 700 800 720 Balance 700 800 720 Weight 103.8 kg 101.4 kg General appearance: PRESENT: no acute distress, cooperative Respiratory exam: PRESENT: clear to auscultation rio, symmetrical, unlabored. ABSENT: accessory muscle use, rales, rhonchi, tachypnea, wheezes Cardiovascular exam: PRESENT: RRR, +S1, +S2 Vascular exam: PRESENT: normal capillary refill GI/Abdominal exam: PRESENT: normal bowel sounds, soft, other - She had a left lower quadrant colostomy which had gas and stool in the bag. ABSENT: distended, guarding, rebound, tenderness Extremities exam: ABSENT: clubbing, pedal edema Musculoskeletal exam: PRESENT: normal inspection. ABSENT: deformity Neurological exam: PRESENT: alert, awake, oriented to person, oriented to place, oriented to time, oriented to situation Psychiatric exam: PRESENT: flat affect Skin exam: PRESENT: erythema - She had erythema that covers the medial aspect of the left upper arm, with 2 tender nodular areas close to the axilla on the arm. She had 2 areas in the axilla that look like pimples that had drained and were in the process of healing. She had no exudates. The erythema has almost completely faded. The 2 nodular areas in the upper arm have almost completely resolved regarding the nodularity. Results Laboratory Results: 07/28/18 06:27 07/25/18 14:47 Impressions: Upper Extremity CT 07/25/18 16:49 IMPRESSION: Apparent cellulitis in the left arm with no evidence of an abscess at this time. Qualifiers - * PATIENT BEING DISCHARGED WITH ANY OF THE FOLLOWING DIAGNOSIS: No
== END 2018-07-29 18:00 | disposition home or self-care (01) | DRG 603 ==
LOC: ER 14:01 → EH 19:37 → 2N 23:18
PROVIDERS: ADMIT Emergency Medicine; ATTEND Emergency Medicine
DX: L03.112 Cellulitis of left axilla (principal); F17.210 Nicotine dependence, cigarettes, uncomplicated; Z93.3 Colostomy status; Z79.899 Other long term (current) drug therapy; Z86.14 Personal history of Methicillin resistant Staphylococcus aureus infection
CPT/HCPCS: 36415; 80053; 82962; 83605; 85025; 85027; 87040; 96365; 96366; 96367; 96375; 99291; J0690; J1170; J1644; J2270; J2543; J3370; S0164

== ENCOUNTER 2018-08-23 12:15 | Emergency (ER) | payer SELFPAY ==
[2018-08-23] MEDS ORDERED: ONDANSETRON 4 MG TAB.RAPDIS PO ONE (12:57)
[2018-08-23] MEDS ORDERED: NORMAL SALINE 1000 ML 1,000 ML IV ONE (12:57)
[2018-08-23] MEDS ORDERED: FENTANYL CITRATE INJ/PF 100 MCG/2 ML AMPUL IV ONE ×2 (12:57→18:40)
--- NOTE | 2018-08-23 12:59 | ER Document Report ---
ED Medical Screen (RME) - General Chief Complaint: Abdominal Pain Stated Complaint: COLOSTOMY ISSUES, PAIN AT SITE Time Seen by Provider: 08/23/18 12:45 Mode of Arrival: Ambulatory Information source: Patient Notes: 42-year-old obese female presents emergency department complaints of left lower quadrant abdominal pain. Patient states that she has a history of diverticulitis with perforation that resulted in a colostomy. Patient states that this was done in [place] [address] Graff in [facility]. Patient denies any nausea, vomiting, diarrhea, constipation, dysuria, hematuria. I have greeted and performed a rapid initial assessment of this patient. A comprehensive ED assessment and evaluation of the patient, analysis of test results and completion of the medical decision making process will be conducted by additional ED providers. PHYSICAL EXAMINATION: GENERAL: Well-appearing, well-nourished and in no acute distress. HEAD: Atraumatic, normocephalic. EYES: Pupils equal round extraocular movements intact, conjunctiva are normal. ENT: Nares patent NECK: Normal range of motion LUNGS: No respiratory distress Musculoskeletal: Normal range of motion NEUROLOGICAL: Normal speech, normal gait. PSYCH: Normal mood, normal affect. SKIN: Warm, Dry, normal turgor, no rashes or lesions noted. TRAVEL OUTSIDE OF THE [place] IN LAST 30 DAYS: No - Related Data Allergies/Adverse Reactions: No Known Allergies Allergy (Verified 08/23/18 12:16) Past Medical History - Social History Frequency of alcohol use: None Drug Abuse: None Renal/ Medical History: Reports: Hx Kidney Stones, Hx Ovarian Cysts. Denies: Hx Peritoneal Dialysis GI Medical History: Reports: Hx Diverticulitis - Diverticula, Hx Ulcerative Colitis Skin Medical History: Reports Hx MRSA Infectious Medical History: Reports: Hx MRSA Past Surgical History: Reports: Hx Bowel Surgery - COLOSTOMY, Hx Tubal Ligation Physical Exam - Vital signs Vitals: Temp Pulse Resp BP Pulse Ox 98.1 F 104 H 20 135/76 H 96 08/23/18 12:22 08/23/18 12:22 08/23/18 12:08/23/18 12:08/23/18 12:22 Course - Vital Signs Vital signs: Temp Pulse Resp BP Pulse Ox 98.1 F 104 H 20 135/76 H 96 08/23/18 12:22 08/23/18 12:22 08/23/18 12:22 08/23/18 12:22 08/23/18 12:22
--- NOTE | 2018-08-23 15:03 | RADIOLOGY REPORT (SQ) ---
EXAM DESCRIPTION: CT ABD/PELVIS WITH IV ONLY COMPLETED DATE/TIME: 08/23/2018 2:50 pm REASON FOR STUDY: LLQ abdominal pain COMPARISON: 04/08/2018 TECHNIQUE: CT scan of the abdomen and pelvis performed using helical scanning technique with dynamic intravenous contrast injection. No oral contrast. Images reviewed with lung, soft tissue, and bone windows. Reconstructed coronal and sagittal MPR images reviewed. Delayed images for evaluation of the urinary system also acquired. All images stored on PACS. All CT scanners at this facility use dose modulation, iterative reconstruction, and/or weight based d osing when appropriate to reduce radiation dose to as low as reasonably achievable (ALARA). [facility]: Dose Right [facility]: CareDose [facility]: Dose Right [facility]: Teradose 4D [facility]: [employer] CONTRAST TYPE AND DOSE: contrast/concentration: Isovue 350.00 mg/ml; Total Contrast Delivered: 100.0 ml; Total Saline Delivered: 72.0 ml RENAL FUNCTION: None required. The patient is less than 50 years old. RADIATION DOSE: CT Rad equipment meets quality standard of care and radiation dose reduction techniq ues were employed. CTDIvol: 19.5 - 20.9 mGy. DLP: 2157 mGy-cm.. LIMITATIONS: None. FINDINGS: LOWER CHEST: No significant findings. No nodules or infiltrates. LIVER: Normal size. No masses. No dilated ducts. SPLEEN: Normal size. No focal lesions. PANCREAS: No masses. No significant calcifications. No adjacent inflammation or peripancreatic fluid collections. Pancreatic duct not dilated. GALLBLADDER: No identified stones by CT criteria. No inflammatory changes to suggest cholecystitis. ADRENAL GLANDS: No significant masses or asymmetry. RIGHT KIDNEY AND URETER: No solid masses. No significant calcifications. No hydronephrosis or hyd roureter. LEFT KIDNEY AND URETER: No solid masses. No significant calcifications. No hydronephrosis or hydr oureter. AORTA AND VESSELS: No aneurysm. No dissection. Renal arteries, SMA, celiac without stenosis. RETROPERITONEUM: No retroperitoneal adenopathy, hemorrhage or masses. BOWEL AND PERITONEAL CAVITY: The patient is status post sigmoidectomy with rectal stump and midline l ow abdomen end ostomy. APPENDIX: Normal. PELVIS: No mass. No free fluid. Normal bladder. ABDOMINAL WALL: There is a redemonstrated large parastomal hernia containing multiple loops of small bowel without evidence of obstruction. The hernia neck measures approximately 5.5 cm. BONES: No significant or acute findings. OTHER: No other significant finding. IMPRESSION: There is a redemonstrated large parastomal hernia containing multiple loops of small bow el without evidence of obstruction. The hernia neck measures approximately 5.5 cm. TECHNICAL DOCUMENTATION: JOB ID: [id number] Quality ID # [id number]: Final reports with documentation of one or more dose reduction techniques (e.g., Au tomated exposure control, adjustment of the mA and/or kV according to patient size, use of iterative reconstruction technique) 2010 [employer]- All Rights Reserved Reading location - IP/workstation name: [email or web address]
[2018-08-23 15:24] LABS: APPEARANCE,URINE CLOUDY; BILIRUBIN,URINE NEGATIVE (NEGATIVE); CALCIUM OXALATE CRYSTALS,URINE MODERATE /HPF; COLOR,URINE AMBER; GLUCOSE, URINE NEGATIVE (NEGATIVE); KETONES,URINE TRACE mg/dL (NEGATIVE); LEUKOCYTE ESTERASE,URINE TRACE (NEGATIVE); NITRITE,URINE NEGATIVE (NEGATIVE); PROTEIN,URINE NEGATIVE (NEGATIVE); URINE SPECIFIC GRAVITY 1.027
[2018-08-23 16:21] LABS: ABSOLUTE BASOPHILS # (AUTO) 0.1 10^3/uL (0.0-0.2); ABSOLUTE EOSINOPHILS # (AUTO) 0.2 10^3/uL (0.0-0.6); ABSOLUTE LYMPHOCYTES (AUTO) 3.8 10^3/uL (0.5-4.7); ABSOLUTE MONOCYTES (AUTO) 0.9 10^3/uL (0.1-1.4); ABSOLUTE NEUT (AUTO) 6.9 10^3/uL (1.7-8.2); BASOPHILS % (AUTO) 0.7 % (0-2); EOSINOPHILS % (AUTO) 1.8 % (0-6); HEMATOCRIT 42.9 % (36.0-47.0); HEMOGLOBIN 14.3 g/dL (12.0-15.5); MEAN CORPUSCULAR HEMOGLOBIN 29.6 pg (27.0-33.4); MEAN CORPUSCULAR HGB CONC 33.4 g/dL (32.0-36.0); MEAN CORPUSCULAR VOLUME 89 fl (80-97); MONOCYTES % (AUTO) 7.5 % (3-13); PLATELET COUNT 253 10^3/uL (150-450); RED BLOOD COUNT 4.84 10^6/uL (3.72-5.28); RED CELL DISTRIBUTION WIDTH 14.1 % (11.5-14.0); TOTAL CELLS COUNTED % (AUTO) 100 %; WHITE BLOOD COUNT 11.9 10^3/uL (4.0-10.5)
[2018-08-23 16:31] LABS: BILIRUBIN,DIRECT 0.2 mg/dL (0.0-0.4); BILIRUBIN,TOTAL 0.2 mg/dL (0.2-1.3); LIPASE 233.4 U/L (23-300); NEONATAL BILIRUBIN RESULT 0.1 mg/dL (0.1-1.1)
[2018-08-23 16:42] LABS: ALANINE AMINOTRANSFERASE 30 U/L (9-52); ALKALINE PHOSPHATASE 98 U/L (38-126); ANION GAP 8 (5-19); ASPARTATE AMINO TRANSFERASE 19 U/L (14-36); BLOOD UREA NITROGEN 10 mg/dL (7-20); CALCIUM 8.5 mg/dL (8.4-10.2); CARBON DIOXIDE 25 mmol/L (22-30); CHLORIDE 106 mmol/L (98-107); GLUCOSE 88 mg/dL (75-110); POTASSIUM 4.4 mmol/L (3.6-5.0); SODIUM 139.1 mmol/L (137-145); TOTAL PROTEIN 6.9 g/dL (6.3-8.2)
[2018-08-23 18:24] VITALS: BP 117/71
--- NOTE | 2018-08-23 18:34 | ER Document Report ---
ED General - General Chief Complaint: Abdominal Pain Stated Complaint: COLOSTOMY ISSUES, PAIN AT SITE Time Seen by Provider: 08/23/18 12:45 Mode of Arrival: Ambulatory Information source: Patient, [facility] Records Notes: 42-year-old female with a history of diverticulitis, bowel perforation and col ostomy that was a year and a half ago presents with concern for decreased output to her ostomy and generalized abdominal pain. Patient reports her pain started 1 week prior to arrival. She describes it as sharp, constant. Patient denies any fever, chills, nausea, vomiting, dysuria, hematuria, vaginal discharge. TRAVEL OUTSIDE OF THE [place] IN LAST 30 DAYS: No - HPI Onset: Last week Onset/Duration: Gradual, Persistent, Worse Quality of pain: Sharp Severity: Mild Pain Level: 1 Associated symptoms: Nausea. denies: Chest pain, Diarrhea, Fever, Vomiting Exacerbated by: Denies Relieved by: Denies Similar symptoms previously: Yes Recently seen / treated by doctor: No - Related Data Allergies/Adverse Reactions: No Known Allergies Allergy (Verified 08/23/18 18:00) Past Medical History - General Information source: Patient - Social History Smoking Status: Current Every Day Smoker Frequency of alcohol use: None Drug Abuse: None Lives with: Family Family History: Reviewed & Not Pertinent Patient has suicidal ideation: No Patient has homicidal ideation: No Renal/ Medical History: Reports: Hx Kidney Stones, Hx Ovarian Cysts. Denies: Hx Peritoneal Dialysis GI Medical History: Reports: Hx Diverticulitis - Diverticula, Hx Ulcerative Colitis Skin Medical History: Reports Hx MRSA Infectious Medical History: Reports: Hx MRSA Past Surgical History: Reports: Hx Bowel Surgery - COLOSTOMY, Hx Tubal Ligation Review of Systems - Review of Systems Notes: REVIEW OF SYSTEMS: CONSTITUTIONAL : Denies fever, chills. Denies recent illness. Denies weight loss, recent hospitalizations. EENT: Denies visual changes, eye pain. Denies sore throat, oral lesions, difficulty swallowing. CARDIOVASCULAR: Denies chest pain. Denies palpitations. Denies lower extremity edema. RESPIRATORY: Denies cough. Denies shortness of breath, wheezing. GASTROINTESTINAL: Denies abdominal distention. Denies vomiting, or diarrhea. Denies blood in vomitus, stools, or per rectum. Denies black, tarry stools. Denies constipation. GENITOURINARY: Denies difficulty urinating, painful urination, frequency, blood in urine, or vaginal discharge. MUSCULOSKELETAL: Denies back or neck pain or stiffness. Denies joint pain or s welling. SKIN: Denies rash, lesions or sores. HEMATOLOGIC : Denies easy bruising or bleeding. LYMPHATIC: Denies swollen glands. NEUROLOGICAL: Denies confusion or altered mental status. Denies loss of consciousness. Denies dizziness or lightheadedness. Denies headache. Denies weakness or paralysis. Denies problems difficulty with ambulation, slurred speech. Denies sensory loss, numbness, or tingling. Denies seizures. PSYCHIATRIC: Denies anxiety or stress. Denies depression, suicidal ideation, or homicidal ideation. Denies visual or auditory hallucinations. Physical Exam - Vital signs Vitals: Temp Pulse Resp BP Pulse Ox 98.1 F 104 H 20 135/76 H 96 08/23/18 12:22 08/23/18 12:22 08/23/18 12:22 08/23/18 12:22 08/23/18 12:22 - Notes Notes: PHYSICAL EXAMINATION: GENERAL: Well-appearing, well-nourished and in no acute distress. HEAD: Atraumatic, normocephalic. EYES: Pupils equal round and reactive to light, extraocular movements intact, conjunctiva are normal. ENT: Nares patent, oropharynx clear without exudates. Moist mucous membranes. NECK: Normal range of motion, supple without lymphadenopathy LUNGS: Breath sounds clear to auscultation bilaterally and equal. No wheezes rales or rhonchi. HEART: Regular rate and rhythm without murmurs ABDOMEN: Generalized abdominal pain with palpation. No focal tenderness. No guarding, no rebound. No masses appreciated. Ostomy with solid stool output. No associated erythema. Female : deferred Musculoskeletal: Normal range of motion, no pitting or edema. No cyanosis. NEUROLOGICAL: Cranial nerves grossly intact. Normal speech, normal gait. Normal sensory, motor exams PSYCH: Normal mood, normal affect. SKIN: Warm, Dry, normal turgor, no rashes or lesions noted. Course - Re-evaluation Re-evalutation: Laboratory 08/23/18 08/23/18 08/23/18 13:50 13:50 13:50 WBC Cancelled RBC Cancelled Hgb Cancelled Hct Cancelled MCV Cancelled MCH Cancelled MCHC Cancelled RDW Cancelled Plt Count Cancelled Seg Neutrophils % Cancelled Lymphocytes % Cancelled Monocytes % Cancelled Eosinophils % Cancelled Basophils % Cancelled Absolute Neutrophils Cancelled Absolute Lymphocytes Cancelled Absolute Monocytes Cancelled Absolute Eosinophils Cancelled Absolute Basophils Cancelled Platelet Estimate Cancelled Sodium Cancelled Potassium Cancelled Chloride Cancelled Carbon Dioxide Cancelled Anion Gap Cancelled BUN Cancelled Creatinine Cancelled Est GFR ( Amer) Cancelled Est GFR (Non-Af Amer) Cancelled Glucose Cancelled Calcium Cancelled Total Bilirubin Cancelled Direct Bilirubin Cancelled Neonat Total Bilirubin Cancelled Neonat Direct Bilirubin Cancelled Neonat Indirect Bili Cancelled AST Cancelled ALT Cancelled Alkaline Phosphatase Cancelled Total Protein Cancelled Albumin Cancelled Lipase Cancelled Urine Color YAMIL Urine Appearance CLOUDY Urine pH 5.0 Ur Specific [place] 1.027 Urine Protein NEGATIVE Urine Glucose (UA) NEGATIVE Urine Ketones TRACE H Urine Blood SMALL H Urine Nitrite NEGATIVE Urine Bilirubin NEGATIVE Urine Urobilinogen 4.0 H Ur Leukocyte Esterase TRACE H Urine WBC (Auto) 2 Urine RBC (Auto) 5 U Hyaline Cast (Auto) 9 Squamous Epi Cells Auto 7 Calcium Oxalate Cr Auto MODERATE Urine Mucus (Auto) MANY Urine Ascorbic Acid NEGATIVE Slides for Path Review Cancelled 08/23/18 08/23/18 16:00 16:00 WBC 11.9 H RBC 4.84 Hgb 14.3 Hct 42.9 MCV 89 MCH 29.6 MCHC 33.4 RDW 14.1 H Plt Count 253 Seg Neutrophils % 58.0 Lymphocytes % 32.0 Monocytes % 7.5 Eosinophils % 1.8 Basophils % 0.7 Absolute Neutrophils 6.9 Absolute Lymphocytes 3.8 Absolute Monocytes 0.9 Absolute Eosinophils 0.2 Absolute Basophils 0.1 Platelet Estimate Sodium 139.1 Potassium 4.4 Chloride 106 Carbon Dioxide 25 Anion Gap 8 BUN 10 Creatinine 0.54 Est GFR ( Amer) > 60 Est GFR (Non-Af Amer) > 60 Glucose 88 Calcium 8.5 Total Bilirubin 0.2 Direct Bilirubin 0.2 Neonat Total Bilirubin 0.1 Neonat Direct Bilirubin 0.0 Neonat Indirect Bili 0.1 AST 19 ALT 30 Alkaline Phosphatase 98 Total Protein 6.9 Albumin 4.0 Lipase 233.4 Urine Color Urine Appearance Urine pH Ur Specific [place] Urine Protein Urine Glucose (UA) Urine Ketones Urine Blood Urine Nitrite Urine Bilirubin Urine Urobilinogen Ur Leukocyte Esterase Urine WBC (Auto) Urine RBC (Auto) U Hyaline Cast (Auto) Squamous Epi Cells Auto Calcium Oxalate Cr Auto Urine Mucus (Auto) Urine Ascorbic Acid Slides for Path Review Laboratory 08/23/18 08/23/18 08/23/18 13:50 13:50 13:50 WBC Cancelled RBC Cancelled Hgb Cancelled Hct Cancelled MCV Cancelled MCH Cancelled MCHC Cancelled RDW Cancelled Plt Count Cancelled Seg Neutrophils % Cancelled Lymphocytes % Cancelled Monocytes % Cancelled Eosinophils % Cancelled Basophils % Cancelled Absolute Neutrophils Cancelled Absolute Lymphocytes Cancelled Absolute Monocytes Cancelled Absolute Eosinophils Cancelled Absolute Basophils Cancelled Platelet Estimate Cancelled Sodium Cancelled Potassium Cancelled Chloride Cancelled Carbon Dioxide Cancelled Anion Gap Cancelled BUN Cancelled Creatinine Cancelled Est GFR ( Amer) Cancelled Est GFR (Non-Af Amer) Cancelled Glucose Cancelled Calcium Cancelled Total Bilirubin Cancelled Direct Bilirubin Cancelled Neonat Total Bilirubin Cancelled Neonat Direct Bilirubin Cancelled Neonat Indirect Bili Cancelled AST Cancelled ALT Cancelled Alkaline Phosphatase Cancelled Total Protein Cancelled Albumin Cancelled Lipase Cancelled Urine Color YAMIL Urine Appearance CLOUDY Urine pH 5.0 Ur Specific [place] 1.027 Urine Protein NEGATIVE Urine Glucose (UA) NEGATIVE Urine Ketones TRACE H Urine Blood SMALL H Urine Nitrite NEGATIVE Urine Bilirubin NEGATIVE Urine Urobilinogen 4.0 H Ur Leukocyte Esterase TRACE H Urine WBC (Auto) 2 Urine RBC (Auto) 5 U Hyaline Cast (Auto) 9 Squamous Epi Cells Auto 7 Calcium Oxalate Cr Auto MODERATE Urine Mucus (Auto) MANY Urine Ascorbic Acid NEGATIVE Slides for Path Review Cancelled 08/23/18 08/23/18 16:00 16:00 WBC 11.9 H RBC 4.84 Hgb 14.3 Hct 42.9 MCV 89 MCH 29.6 MCHC 33.4 RDW 14.1 H Plt Count 253 Seg Neutrophils % 58.0 Lymphocytes % 32.0 Monocytes % 7.5 Eosinophils % 1.8 Basophils % 0.7 Absolute Neutrophils 6.9 Absolute Lymphocytes 3.8 Absolute Monocytes 0.9 Absolute Eosinophils 0.2 Absolute Basophils 0.1 Platelet Estimate Sodium 139.1 Potassium 4.4 Chloride 106 Carbon Dioxide 25 Anion Gap 8 BUN 10 Creatinine 0.54 Est GFR ( Amer) > 60 Est GFR (Non-Af Amer) > 60 Glucose 88 Calcium 8.5 Total Bilirubin 0.2 Direct Bilirubin 0.2 Neonat Total Bilirubin 0.1 Neonat Direct Bilirubin 0.0 Neonat Indirect Bili 0.1 AST 19 ALT 30 Alkaline Phosphatase 98 Total Protein 6.9 Albumin 4.0 Lipase 233.4 Urine Color Urine Appearance Urine pH Ur Specific [place] Urine Protein Urine Glucose (UA) Urine Ketones Urine Blood Urine Nitrite Urine Bilirubin Urine Urobilinogen Ur Leukocyte Esterase Urine WBC (Auto) Urine RBC (Auto) U Hyaline Cast (Auto) Squamous Epi Cells Auto Calcium Oxalate Cr Auto Urine Mucus (Auto) Urine Ascorbic Acid Slides for Path Review Abdomen/Pelvis CT 08/23/18 12:56 IMPRESSION: There is a redemonstrated large parastomal hernia containing multiple loops of small bowel without evidence of obstruction. The hernia neck measures approximately 5.5 cm. Temp Pulse Resp BP Pulse Ox 97.7 F 74 20 117/71 97 08/23/18 18:22 08/23/18 18:22 08/23/18 12:22 08/23/18 18:22 08/23/18 18:22 08/23/18 21:46 42-year-old female with a history of diverticulitis, bowel perforation and colostomy that was a year and a half ago presents with concern for decreased output to her ostomy and generalized abdominal pain. Patient reports her pain started 1 week prior to arrival. She describes it as sharp, constant. Patient denies any fever, chills, nausea, vomiting, dysuria, hematuria, vaginal discharge. Vital signs stable upon arrival. Patient is afebrile, normotensive. She does not appear toxic or dehydrated. She is in no acute distress. CBC, CMP and lipase are within normal limits. Urinalysis not consistent with infection. CT of the abdomen and pelvis was obtained which shows a large known hernia with multiple loops of small bowel without evidence of obstruction. Patient admittedly has not followed up with her surgeon due to insurance issues. Patient eloped prior to completion of evaluation and did not receive her discharge instruction or home-going prescriptions. - Vital Signs Vital signs: Temp Pulse Resp BP Pulse Ox 97.7 F 74 20 117/71 97 08/23/18 18:22 08/23/18 18:22 08/23/18 12:22 08/23/18 18:22 08/23/18 18:22 - Laboratory Result Diagrams: 08/23/18 16:00 08/23/18 16:00 Laboratory results interpreted by me: 08/23/18 08/23/18 13:50 16:00 WBC 11.9 H RDW 14.1 H Urine Ketones TRACE H Urine Blood SMALL H Urine Urobilinogen 4.0 H Ur Leukocyte Esterase TRACE H - Diagnostic Test Radiology reviewed: Image reviewed, Reports reviewed Discharge - Discharge Clinical Impression: Parastomal hernia without obstruction or gangrene, History of colon resection Abdominal pain Qualifiers: Abdominal location: unspecified location Qualified Code(s): R10.9 - Unspecified abdominal pain Condition: Good Disposition: HOME, SELF-CARE Instructions: Abdominal Pain ([facility]), Hernia ([facility]) Additional Instructions: Follow up with your [id number] hours for further care or return to the ED IMMEDIATELY if symptoms worsen or you have any concerns. If you cannot afford to follow up with your primary care physician a list of low cost clinics have been provided at the end of your discharge papers as well. Most prescribed medications have multiple side effects. The safest thing to do is when filling your prescription speak to your pharmacist regarding possible interactions with your normal home medications and over the counter medications such as Ibuprofen, Tylenol, Benadryl. If you experience any symptoms that cause you discomfort or concern you should discontinue the medication immediately and return to the emergency room or call your primary care physician. Prescriptions: Hydrocodone/Acetaminophen [[place] 5-325 mg Tabs (6 Tab/ER Disp)] 6 tab PO Q6H PRN #1 dspk PRN Reason: For Pain Scale 2-4 Ondansetron [Zofran Odt 4 mg Tablet (6 Tab/ER Disp)] 6 tab PO Q6H #1 dspk Forms: Return to Work
[2018-08-23] MEDS ORDERED: ONDANSETRON ODT 4 MG TAB (6 TAB/ER DISP) PO PRN (19:36)
[2018-08-23] MEDS ORDERED: HYDROCODONE/ACETAMINOPHEN 5-325 MG (6 TAB/ER DISP) PO PRN (19:36)
== END 2018-08-23 20:21 | disposition home or self-care (01) ==
LOC: ER 12:15
DX: K43.5 Parastomal hernia without obstruction or gangrene (principal); R10.84 Generalized abdominal pain; F17.200 Nicotine dependence, unspecified, uncomplicated; Z87.19 Personal history of other diseases of the digestive system; Z93.3 Colostomy status; Z90.49 Acquired absence of other specified parts of digestive tract; Z87.442 Personal history of urinary calculi; Z98.51 Tubal ligation status
CPT/HCPCS: 96376; 99284; 96361; 96374; 36415; 83690; 85025; 80053; 81001; 74177; S0119; J3010; J7030

== ENCOUNTER 2018-10-24 12:04 | Inpatient (IN) | payer OTHER ==
[2018-10-24] MEDS ORDERED: CLINDAMYCIN 600 MG/D5W RTU 600 MG/50 ML RTUPB IV ONE (13:14)
[2018-10-24] MEDS ORDERED: ACETAMINOPHEN 325 MG TABLET PO ONE (13:16)
--- NOTE | 2018-10-24 13:17 | ER Document Report ---
ED Medical Screen (RME) - General Chief Complaint: Skin Problem Stated Complaint: SHOULDER PAIN Time Seen by Provider: 10/24/18 13:11 TRAVEL OUTSIDE OF THE [place] IN LAST 30 DAYS: No - HPI Notes: 10/24/18 13:15 Patient is a 43-year-old female with a history of MRSA, colitis with colostomy bag who presents emergency department complaining of cellulitis to her posterior right shoulder area that developed 2 days ago. Patient states that she has redness, pain, and some scant discharge. Patient states that she has not had to have any area cut open before, but has been admitted with IV antibiotics. She is eating and drinking without difficulty. Denies drug allergies. Denies AMAYA, fever, neck pain, URI, CP, SOB, Abd pain. I have treated and performed a rapid initial assessment of this patient. A co mprehensive ED assessment and evaluation of the patient, analysis of test results and completion of medical decision making process will be conducted by additional ED providers. PHYSICAL EXAMINATION: GENERAL: Well-appearing, well-nourished and in no acute distress. A&Ox4. Answers questions appropriately. LUNGS: Breath sounds clear to auscultation bilaterally and equal. No wheezes rales or rhonchi. HEART: Regular rate and rhythm without murmurs, rubs, gallops. Skin: there is a larger area of erythema and induration with area that had previously been draining noted rt shoulder. + tenderness. - Related Data Allergies/Adverse Reactions: No Known Allergies Allergy (Verified 08/23/18 18:00) Past Medical History Renal/ Medical History: Reports: Hx Kidney Stones, Hx Ovarian Cysts. Denies: Hx Peritoneal Dialysis GI Medical History: Reports: Hx Diverticulitis - Diverticula, Hx Ulcerative Colitis Skin Medical History: Reports Hx MRSA Infectious Medical History: Reports: Hx MRSA Past Surgical History: Reports: Hx Bowel Surgery - COLOSTOMY, Hx Tubal Ligation Physical Exam - Vital signs Vitals: Temp Pulse Resp BP Pulse Ox 99.2 F 116 H 20 118/68 94 10/24/18 13:01 10/24/18 13:01 10/24/18 13:01 10/24/18 13:01 10/24/18 13:01 Course - Vital Signs Vital signs: Temp Pulse Resp BP Pulse Ox 99.2 F 116 H 20 118/68 94 10/24/18 13:01 10/24/18 13:01 10/24/18 13:01 10/24/18 13:01 10/24/18 13:01
[2018-10-24 14:23] LABS: HEMATOCRIT 40.9 % (36.0-47.0); HEMOGLOBIN 13.8 g/dL (12.0-15.5); MEAN CORPUSCULAR HEMOGLOBIN 29.8 pg (27.0-33.4); MEAN CORPUSCULAR HGB CONC 33.7 g/dL (32.0-36.0); MEAN CORPUSCULAR VOLUME 89 fl (80-97); PLATELET COUNT 275 10^3/uL (150-450); RED BLOOD COUNT 4.62 10^6/uL (3.72-5.28); RED CELL DISTRIBUTION WIDTH 14.6 % (11.5-14.0); WHITE BLOOD COUNT 21.4 10^3/uL (4.0-10.5)
[2018-10-24 14:47] LABS: ALANINE AMINOTRANSFERASE 22 U/L (9-52); ALBUMIN 4.1 g/dL (3.5-5.0); ALKALINE PHOSPHATASE 99 U/L (38-126); ANION GAP 10 (5-19); ASPARTATE AMINO TRANSFERASE 52 U/L (14-36); BILIRUBIN,DIRECT 0.3 mg/dL (0.0-0.4); BILIRUBIN,TOTAL 0.5 mg/dL (0.2-1.3); BLOOD UREA NITROGEN 11 mg/dL (7-20); CARBON DIOXIDE 25 mmol/L (22-30); CHLORIDE 100 mmol/L (98-107); GLUCOSE 150 mg/dL (75-110); POTASSIUM 3.6 mmol/L (3.6-5.0); SODIUM 134.9 mmol/L (137-145); TOTAL PROTEIN 7.9 g/dL (6.3-8.2)
[2018-10-24 14:54] LABS: ABSOLUTE LYMPHOCYTES# (MANUAL) 3.2 10^3/uL (0.5-4.7); ABSOLUTE MONOCYTES # (MANUAL) 1.9 10^3/uL (0.1-1.4); ABSOLUTE NEUTROPHILS# (MANUAL) 16.3 10^3/uL (1.7-8.2); BASOPHILS % (MANUAL) 0 % (0-2); EOSINOPHILS % (MANUAL) 0 % (0-6); LYMPHOCYTES % (MANUAL) 15 % (13-45); MONOCYTES % (MANUAL) 9 % (3-13); PLATELET COMMENT ADEQUATE; RBC MORPHOLOGY COMMENT NORMO-CYTIC/CHROMIC; SEGMENTED NEUTROPHILS % (MAN) 76 % (42-78); TOTAL CELLS COUNTED 100
[2018-10-24] MEDS ORDERED: VANCOMYCIN HCL INJ 1000 MG VIAL IV ONE (15:21)
[2018-10-24] MEDS ORDERED: KETOROLAC TROMETHAMINE INJ/PF 30 MG/1 ML SDV IV ONE (15:24)
--- NOTE | 2018-10-24 16:30 | RADIOLOGY REPORT (SQ) ---
EXAM DESCRIPTION: CT HEAD WITHOUT COMPLETED DATE/TIME: 10/24/2018 4:18 pm REASON FOR STUDY: New onset AMAYA different than usual COMPARISON: None. TECHNIQUE: Axial images acquired through the brain without intravenous contrast. Images reviewed wi th bone, brain and subdural windows. Additional sagittal and coronal reconstructions were generated. Images stored on PACS. All CT scanners at this facility use dose modulation, iterative reconstruction, and/or weight based d osing when appropriate to reduce radiation dose to as low as reasonably achievable (ALARA). [facility]: Dose Right [facility]: CareDose [facility]: Dose Right [facility]: Teradose 4D [facility]: Lockr RADIATION DOSE: CT Rad equipment meets quality standard of care and radiation dose reduction techniq ues were employed. CTDIvol: 53.2 mGy. DLP: 937 mGy-cm. mGy. LIMITATIONS: None. FINDINGS: VENTRICLES: Normal size and contour. CEREBRUM: No masses. No hemorrhage. No midline shift. No evidence for acute infarction. Normal gra y/white matter differentiation. No areas of low density in the white matter. CEREBELLUM: No masses. No hemorrhage. No alteration of density. No evidence for acute infarction. EXTRAAXIAL SPACES: No fluid collections. No masses. ORBITS AND GLOBE: No intra- or extraconal masses. Normal contour of globe without masses. CALVARIUM: No fracture. PARANASAL SINUSES: No fluid or mucosal thickening. SOFT TISSUES: No mass or hematoma. OTHER: No other significant finding. IMPRESSION: NORMAL BRAIN CT WITHOUT CONTRAST. EVIDENCE OF ACUTE STROKE: NO. COMMENT: Quality ID # [id number]: Final reports with documentation of one or more dose reduction techniques (e.g., Automated exposure control, adjustment of the mA and/or kV according to patient size, use of iterative reconstruction technique) TECHNICAL DOCUMENTATION: JOB ID: [id number] [employer]- All Rights Reserved Reading location - IP/workstation name: [email or web address]
--- NOTE | 2018-10-24 16:36 | RADIOLOGY REPORT (SQ) ---
EXAM DESCRIPTION: CT RT UPPER EXTREMITY WITH COMPLETED DATE/TIME: 10/24/2018 4:18 pm REASON FOR STUDY: Cellulitis vs Abscesss see outline of area COMPARISON: None. TECHNIQUE: Postcontrast axial imaging performed through the right shoulder with reformatted coronal and sagittal imaging windowed for bone and soft tissues. Images saved to PACS. 3D IMAGING: Were 3D images as MIP, SSD, or volume rendering performed at the work station? No. All CT scanners at this facility use dose modulation, iterative reconstruction, and/or weight based d osing when appropriate to reduce radiation dose to as low as reasonably achievable (ALARA). [facility]: Dose Right [facility]: CareDose [facility]: Dose Right [facility]: Teradose 4D [facility]: [employer]ptic CONTRAST TYPE AND DOSE: contrast/concentration: Isovue 350.00 mg/ml; Total Contrast Delivered: 60.0 ml; Total Saline Delivered: 60.0 ml RENAL FUNCTION: GFR > 60. LIMITATIONS: Body habitus. RADIATION DOSE: CT Rad equipment meets quality standard of care and radiation dose reduction techniq ues were employed. CTDIvol: 2.6 mGy. DLP: 153 mGy-cm.mGy. FINDINGS: SOFT TISSUES: No evidence of abscess or foreign body. BONES: No evidence of osteomyelitis or aggressive bone lesion. MINERALIZATION: Normal. ENHANCEMENT: No abnormal enhancement. OTHER: No other significant finding. IMPRESSION: No evidence of abscess or osteomyelitis. TECHNICAL DOCUMENTATION: JOB ID: [id number] Quality ID # [id number]: Final reports with documentation of one or more dose reduction techniques (e.g., Au tomated exposure control, adjustment of the mA and/or kV according to patient size, use of iterative reconstruction technique) 2010 [employer]- All Rights Reserved Reading location - IP/workstation name: [email or web address]
--- NOTE | 2018-10-24 17:51 | ER Document Report ---
ED Skin Rash/Insect Bite/Abscs - General Chief Complaint: Skin Problem Stated Complaint: SHOULDER PAIN Time Seen by Provider: 10/24/18 13:11 Mode of Arrival: Ambulatory Information source: Patient Notes: Patient is a 43-year-old female comes emergency room complaining of having a infection on the right back shoulder and posterior axillary area. Patient states that she has flareups of skin infections fairly often. She had her first exposure to methicillin-resistant staph aureus when she had her colostomy bag placed for Crohn's disease. She is contracted MRSA of the skin afterwards and had a difficult time getting rid of it. She was subsequently in here some time I believe back in May 2018 for a similar presentation on her arm that put her in the hospital for IV antibiotics. She states this 1 flared up about 2 days ago it felt like a little sore around the area then it popped up into like a pimple head and then ruptured. Since then it has gotten progressively worse and quicker than her usual ones over time. She denies known fevers and it has been oozing some. The pain is becoming more unbearable. Patient currently is in pain management for opiate addiction she receives methadone daily. She states the pain is tremendous with that on board. She also complains of a headache like she is never had before she has a history of migraine headaches that usually on the left side this headache is materialized in his psych around the head it is different as stated in her other migraine headaches slightly photophobic but no nausea no vomiting. TRAVEL OUTSIDE OF THE [place] IN LAST 30 DAYS: No - HPI Patient complains to provider of: Skin rash/lesion Onset: Other - 2 days Onset/Duration: Sudden, Persistent, Worse Quality of pain: Pressure, Sharp, Stabbing, Throbbing Severity: Severe Pain Level: 4 Skin Character: Abscess, Erythema, Tenderness, Thickening Skin Temperature: Warm Quality of rash: Painful Identify cause: No Similar symptoms previously: Yes Recently seen / treated by doctor: No - Related Data Allergies/Adverse Reactions: No Known Allergies Allergy (Verified 08/23/18 18:00) Past Medical History - General Information source: Patient - Social History Smoking Status: Current Every Day Smoker Cigarette use (# per day): Yes Chew tobacco use (# tins/day): No Smoking Education Provided: Yes Family History: Reviewed & Not Pertinent Patient has suicidal ideation: No Patient has homicidal ideation: No Renal/ Medical History: Reports: Hx Kidney Stones, Hx Ovarian Cysts. Denies: Hx Peritoneal Dialysis GI Medical History: Reports: Hx Diverticulitis - Diverticula, Hx Ulcerative Colitis Skin Medical History: Reports Hx MRSA Infectious Medical History: Reports: Hx MRSA Past Surgical History: Reports: Hx Bowel Surgery - COLOSTOMY, Hx Tubal Ligation Review of Systems - Review of Systems Constitutional: No symptoms reported EENT: No symptoms reported Cardiovascular: No symptoms reported Respiratory: No symptoms reported Gastrointestinal: No symptoms reported Genitourinary: No symptoms reported Female Genitourinary: No symptoms reported Musculoskeletal: No symptoms reported Skin: See HPI, Change in color, Lesions Hematologic/Lymphatic: No symptoms reported Neurological/Psychological: See HPI, Headaches -: Yes All other systems reviewed and negative Physical Exam - Vital signs Vitals: Temp Pulse Resp BP Pulse Ox 99.2 F 116 H 20 118/68 94 10/24/18 13:01 10/24/18 13:01 10/24/18 13:01 10/24/18 13:01 10/24/18 13:01 Interpretation: Tachycardic - Notes Notes: PHYSICAL EXAMINATION: GENERAL: Patient is well-nourished well-developed obese 43-year-old female who comes to the emergency room with complaint of having a area on her right shoulder posteriorly and down around into her axilla on the right side that is infected. Patient states that she popped a pimple approximately 2-3 days ago on the posterior side or posterior lateral side where it tended started to expand and become more prominent. She said he did lose for a little bit and then stop. The area is gotten more indurated and painful. Is moderately warm to touch and it is tender to palpation all the way through. The area measures approximately 16 cm long and approximately 10 cm wide with induration noted. Unable to express any drainage out of it at this time. Area feels more firm than fluctuant therefore I believe is more inflamed tissue at this point an abscess. W HEAD: Atraumatic, normocephalic. EYES: Pupils equal round and reactive to light, extraocular movements intact, conjunctiva are normal. ENT: Nares patent, oropharynx clear without exudates. Moist mucous membranes. NECK: Normal range of motion, supple without lymphadenopathy LUNGS: Breath sounds clear to auscultation bilaterally and equal. No wheezes rales or rhonchi. HEART: Tachycardic rate and rhythm without murmurs Female : deferred Musculoskeletal: Patient is very concerned as stated above under general that her right posterior shoulder and the lateral side of the axilla are involved at this time. Any movement causes severe discomfort and pain. The indurated area is very tender to palpate. There is a centralized lesion actually size of a nickel that has apparently crusted over. There is no bruising at this time. Patient has difficulty raising and lowering her right arm to any direction secondary to pain and discomfort. NEUROLOGICAL: Normal speech, normal gait. Normal sensory, motor exams PSYCH: Normal mood, normal affect. SKIN: See description above Course - Re-evaluation Re-evalutation: 10/24/18 17:[address] with contrast of patient's right shoulder area and the tech was able to take it in far enough to where we could get a look at the lateral and posterior side of the shoulder and scapular area where this is actually taken effect. There is no osteomyelitis noted no sign of an abscess at this time. At this point when I contact the hospitalist to see if we get patient admitted for IV antibiotics. She is gotten Rocephin here in ER which was ordered by triage and have also ordered vancomycin as well. We also got a wound culture of the area. - Vital Signs Vital signs: Temp Pulse Resp BP Pulse Ox 98.6 F 103 H 20 95/62 L 97 10/24/18 16:52 10/24/18 16:52 10/24/18 16:52 10/24/18 16:52 10/24/18 16:52 - Laboratory Result Diagrams: 10/24/18 14:10 10/24/18 14:10 Laboratory results interpreted by me: 10/24/18 10/24/18 14:10 14:10 WBC 21.4 H RDW 14.6 H Abs Neuts (Manual) 16.3 H Abs Monocytes (Manual) 1.9 H Sodium 134.9 L Glucose 150 H AST 52 H Discharge - Discharge Clinical Impression: Cellulitis of right axilla, Cellulitis of right upper extremity Condition: Stable Disposition: ADMITTED INPATIENT Admitting Provider: Luzma (Hospitalist) Unit Admitted: Medical Floor
[2018-10-24] MEDS ORDERED: VANCOMYCIN HCL 0 MG in DEXTROSE 5%-WATER 250 ML IV NR (18:30)
--- NOTE | 2018-10-24 18:38 | PDOC H&P ---
History of Present Illness Patient complains of: right upper back drainage History of Present Illness: AUSTEN PRESTON is a 43 year old female with a PMH of perforated diverticulitis S/P colectomy and colostomy, history of opiate abuse now on methadone therapy and prior history of MRSA cellulitis who presented with a draining wound on the right upper back/shoulder area. Patient reports she had a pimple-like lesion on the mentioned area 3 days ago and this popped out spontaneously and developed into an open wound with some purulent drainage. She developed significant erythema and tenderness noticeably extending from the right mid back to the right shoulder area. She also reported of associated fever and chills. Past Medical History GI Medical History: Reports: Diverticulitis - Diverticula, Ulcerative Colitis Infectious Medical History: Reports: Methicillin-Resistant Staph Aureus Past Surgical History Past Surgical History: Reports: Colostomy, Tubal Ligation Social History Smoking Status: Current Every Day Smoker Frequency of Alcohol Use: None Hx Recreational Drug Use: No Drugs: Methadone Hx Prescription Drug Abuse: Yes Family History Family History: Reviewed & Not Pertinent Parental Family History Reviewed: Yes - no premature CAD Children Family History Reviewed: No Sibling(s) Family History Reviewed.: No Medication/Allergy Home Medications: Methadone HCl [Dolophine 10 mg Tablet] 130 mg PO DAILY 07/26/18 Docusate Sodium [Colace] 200 mg PO DAILY 08/23/18 Hydrocodone/Acetaminophen [[place] 5-325 mg Tabs (6 Tab/ER Disp)] 6 tab PO Q6H PRN #1 dspk 08/23/18 Ondansetron [Zofran Odt 4 mg Tablet (6 Tab/ER Disp)] 6 tab PO Q6H #1 dspk 08/23/18 Allergies/Adverse Reactions: No Known Allergies Allergy (Verified 08/23/18 18:00) Review of Systems All systems: reviewed and no additional remarkable complaints except as stated - as mentioned in HPI Physical Exam Vital Signs: Temp Pulse Resp BP Pulse Ox 98.6 F 103 H 20 95/62 L 97 10/24/18 16:52 10/24/18 16:52 10/24/18 16:52 10/24/18 16:52 10/24/18 16:52 Intake & Output 10/23/18 10/24/18 10/25/18 06:59 06:59 06:59 Intake Total 50 Balance 50 Weight 222 lb 10.67 oz General appearance: PRESENT: no acute distress, well-developed, well-nourished Head exam: PRESENT: atraumatic, normocephalic Eye exam: PRESENT: conjunctiva pink, EOMI, PERRLA. ABSENT: scleral icterus Ear exam: PRESENT: normal external ear exam Mouth exam: PRESENT: moist, tongue midline Neck exam: ABSENT: carotid bruit, JVD, lymphadenopathy, thyromegaly Respiratory exam: PRESENT: clear to auscultation rio. ABSENT: rales, rhonchi, wheezes Cardiovascular exam: PRESENT: RRR. ABSENT: diastolic murmur, rubs, systolic murmur Pulses: PRESENT: normal dorsalis pedis pul GI/Abdominal exam: PRESENT: normal bowel sounds, soft. ABSENT: distended, guarding, mass, organolmegaly, rebound, tenderness Rectal exam: PRESENT: deferred Extremities exam: PRESENT: other - note of an open wound with surrounding erythema and tenderness noticeably extending from the right mid back to the right shoulder area Neurological exam: PRESENT: alert, awake, oriented to person, oriented to place, oriented to time, oriented to situation, CN II-XII grossly intact. ABSENT: motor sensory deficit Results Laboratory Results: 10/24/18 14:10 10/24/18 14:10 10/24/18 10/24/18 10/24/18 14:10 14:10 14:10 WBC 21.4 H RBC 4.62 Hgb 13.8 Hct 40.9 MCV 89 MCH 29.8 MCHC 33.7 RDW 14.6 H Plt Count 275 Seg Neutrophils % Not Reportable Lymphocytes % Not Reportable Monocytes % Not Reportable Eosinophils % Not Reportable Basophils % Not Reportable Absolute Neutrophils Not Reportable Absolute Lymphocytes Not Reportable Absolute Monocytes Not Reportable Absolute Eosinophils Not Reportable Absolute Basophils Not Reportable Sodium 134.9 L Potassium 3.6 Chloride 100 Carbon Dioxide 25 Anion Gap 10 BUN 11 Creatinine 0.62 Est GFR ( Amer) > 60 Est GFR (Non-Af Amer) > 60 Glucose 150 H Lactic Acid Calcium 9.0 Total Bilirubin 0.5 AST 52 H ALT 22 Alkaline Phosphatase 99 Total Protein 7.9 Albumin 4.1 Serum HCG, Qual NEGATIVE 10/24/18 14:36 WBC RBC Hgb Hct MCV MCH MCHC RDW Plt Count Seg Neutrophils % Lymphocytes % Monocytes % Eosinophils % Basophils % Absolute Neutrophils Absolute Lymphocytes Absolute Monocytes Absolute Eosinophils Absolute Basophils Sodium Potassium Chloride Carbon Dioxide Anion Gap BUN Creatinine Est GFR ( Amer) Est GFR (Non-Af Amer) Glucose Lactic Acid 1.2 Calcium Total Bilirubin AST ALT Alkaline Phosphatase Total Protein Albumin Serum HCG, Qual Impressions: Upper Extremity CT 10/24/18 15:23 IMPRESSION: No evidence of abscess or osteomyelitis. Head CT 10/24/18 15:25 IMPRESSION: NORMAL BRAIN CT WITHOUT CONTRAST. EVIDENCE OF ACUTE STROKE: NO. Assessment and Plan - Diagnosis (1) Cellulitis of back Is this a current diagnosis for this admission?: Yes Plan: Lesions have been demarcated. The cellulitis is quite extensive extending from the right upper back to the shoulder area. CT scan does not show any abscess. S he does have history of MRSA cellulitis. Will treat patient with vancomycin. Blood and wound cultures. (2) Opiate dependence Is this a current diagnosis for this admission?: Yes Plan: Patient reports she had addiction problems with opiates in the past and is currently on methadone treatment. Resume methadone after dose is verified by pharmacy. - Time Time Spent with patient: 25-34 minutes
[2018-10-24] MEDS: KETOROLAC TROMETHAMINE INJ/PF 30 MG/1 ML SDV IV PRN (19:34)
[2018-10-24] MEDS ORDERED: VANCOMYCIN HCL 1,500 MG in DEXTROSE 5%-WATER 250 ML IV SCH (22:00)
[2018-10-25] MEDS ORDERED: NICOTINE 14 MG/24 HR PATCH.TD24 TD ONE (00:45)
[2018-10-25] MEDS ORDERED: VANCOMYCIN HCL INJ 500 MG VIAL ONE (01:21)
[2018-10-25] MEDS ORDERED: VANCOMYCIN HCL INJ 1000 MG VIAL ONE (01:21)
[2018-10-25] MEDS: KETOROLAC TROMETHAMINE INJ/PF 30 MG/1 ML SDV IV PRN ×3 (01:57→20:43)
[2018-10-25] MEDS: MORPHINE SULFATE 10 MG/ML INJ IV PRN ×4 (01:57→20:42)
[2018-10-25] MEDS: NORMAL SALINE 1000 ML 1,000 ML IV PRN ×2 (02:12→22:20)
[2018-10-25] MEDS ORDERED: VANCOMYCIN HCL 1,500 MG in DEXTROSE 5%-WATER 250 ML IV SCH (10:00)
[2018-10-25] MEDS ORDERED: NICOTINE 14 MG/24 HR PATCH.TD24 TD SCH (10:00)
[2018-10-25] MEDS ORDERED: METHADONE HCL PO SCH (10:00)
[2018-10-25] MEDS: METHADONE HCL 10 MG TABLET PO SCH (11:10)
[2018-10-25] MEDS: FONDAPARINUX SODIUM INJ 2.5 MG/0.5 ML DISP.SYRIN SUBCUT SCH (11:12)
[2018-10-25 11:43] LABS: ABSOLUTE EOSINOPHILS # (AUTO) 0.3 10^3/uL (0.0-0.6); ABSOLUTE LYMPHOCYTES (AUTO) 2.1 10^3/uL (0.5-4.7); ABSOLUTE MONOCYTES (AUTO) 1.7 10^3/uL (0.1-1.4); ABSOLUTE NEUT (AUTO) 14.6 10^3/uL (1.7-8.2); BASOPHILS % (AUTO) 0.2 % (0-2); EOSINOPHILS % (AUTO) 1.4 % (0-6); HEMATOCRIT 35.7 % (36.0-47.0); HEMOGLOBIN 12.1 g/dL (12.0-15.5); LYMPHOCYTES % (AUTO) 11.1 % (13-45); MEAN CORPUSCULAR HEMOGLOBIN 30.2 pg (27.0-33.4); MEAN CORPUSCULAR HGB CONC 33.9 g/dL (32.0-36.0); MEAN CORPUSCULAR VOLUME 89 fl (80-97); MONOCYTES % (AUTO) 9.2 % (3-13); PLATELET COUNT 230 10^3/uL (150-450); RED CELL DISTRIBUTION WIDTH 14.5 % (11.5-14.0); SEGMENTED NEUTROPHILS % (AUTO) 78.1 % (42-78); TOTAL CELLS COUNTED % (AUTO) 100 %; WHITE BLOOD COUNT 18.7 10^3/uL (4.0-10.5)
--- NOTE | 2018-10-25 12:44 | PDOC PROGRESS REPORT ---
Subjective Progress Note for:: 10/25/18 Subjective:: AUSTEN PRESTON is a 43 year old female with a PMH of perforated diverticulitis S/P colectomy and colostomy, history of opiate abuse now on methadone therapy and prior history of MRSA cellulitis who presented with a draining wound on the right upper back/shoulder area. She was admitted for an extensive cellulitis on the mentioned areas. No acute event overnight. She still has pain and tenderness on the affected areas. There is no significant improvement this morning compared to yesterday but lesions have not gone beyond the demarcations. Reason For Visit: CELLULITIS Physical Exam Vital Signs: Temp Pulse Resp BP Pulse Ox 98.4 F 102 H 16 98/55 L 99 10/24/18 23:15 10/24/18 23:15 10/24/18 23:15 10/24/18 23:15 10/24/18 23:15 Intake & Output 10/24/18 10/25/18 10/26/18 06:59 06:59 06:59 Intake Total 290 Balance 290 Weight 222 lb 10.67 oz General appearance: PRESENT: no acute distress, well-developed, well-nourished Head exam: PRESENT: atraumatic, normocephalic Eye exam: PRESENT: conjunctiva pink, EOMI, PERRLA. ABSENT: scleral icterus Ear exam: PRESENT: normal external ear exam Mouth exam: PRESENT: moist, tongue midline Neck exam: ABSENT: carotid bruit, JVD, lymphadenopathy, thyromegaly Respiratory exam: PRESENT: clear to auscultation rio. ABSENT: rales, rhonchi, wheezes Cardiovascular exam: PRESENT: RRR. ABSENT: diastolic murmur, rubs, systolic murmur Pulses: PRESENT: normal dorsalis pedis pul Vascular exam: PRESENT: normal capillary refill GI/Abdominal exam: PRESENT: normal bowel sounds, soft. ABSENT: distended, guarding, mass, organolmegaly, rebound, tenderness Rectal exam: PRESENT: deferred Neurological exam: PRESENT: alert, awake, oriented to person, oriented to place, oriented to time, oriented to situation, CN II-XII grossly intact. ABSENT: motor sensory deficit Skin exam: PRESENT: other - note of an open wound with surrounding erythema and tenderness noticeably extending from the right mid back to the right shoulder area Results Laboratory Results: 10/25/18 11:13 10/24/18 14:10 10/24/18 10/24/18 10/24/18 14:10 14:10 14:10 WBC 21.4 H RBC 4.62 Hgb 13.8 Hct 40.9 MCV 89 MCH 29.8 MCHC 33.7 RDW 14.6 H Plt Count 275 Seg Neutrophils % Not Reportable Lymphocytes % Not Reportable Monocytes % Not Reportable Eosinophils % Not Reportable Basophils % Not Reportable Absolute Neutrophils Not Reportable Absolute Lymphocytes Not Reportable Absolute Monocytes Not Reportable Absolute Eosinophils Not Reportable Absolute Basophils Not Reportable Sodium 134.9 L Potassium 3.6 Chloride 100 Carbon Dioxide 25 Anion Gap 10 BUN 11 Creatinine 0.62 Est GFR ( Amer) > 60 Est GFR (Non-Af Amer) > 60 Glucose 150 H Lactic Acid Calcium 9.0 Total Bilirubin 0.5 AST 52 H ALT 22 Alkaline Phosphatase 99 Total Protein 7.9 Albumin 4.1 Serum HCG, Qual NEGATIVE 10/24/18 10/25/18 14:36 11:13 WBC 18.7 H RBC 4.00 Hgb 12.1 Hct 35.7 L MCV 89 MCH 30.2 MCHC 33.9 RDW 14.5 H Plt Count 230 Seg Neutrophils % 78.1 H Lymphocytes % 11.1 L Monocytes % 9.2 Eosinophils % 1.4 Basophils % 0.2 Absolute Neutrophils 14.6 H Absolute Lymphocytes 2.1 Absolute Monocytes 1.7 H Absolute Eosinophils 0.3 Absolute Basophils 0.0 Sodium Potassium Chloride Carbon Dioxide Anion Gap BUN Creatinine Est GFR ( Amer) Est GFR (Non-Af Amer) Glucose Lactic Acid 1.2 Calcium Total Bilirubin AST ALT Alkaline Phosphatase Total Protein Albumin Serum HCG, Qual Impressions: Upper Extremity CT 10/24/18 15:23 IMPRESSION: No evidence of abscess or osteomyelitis. Head CT 10/24/18 15:25 IMPRESSION: NORMAL BRAIN CT WITHOUT CONTRAST. EVIDENCE OF ACUTE STROKE: NO. Assessment and Plan - Diagnosis (1) Cellulitis of back Is this a current diagnosis for this admission?: Yes Plan: Lesions have been demarcated. The cellulitis is quite extensive extending from the right upper back to the shoulder area. CT scan does not show any abscess. She does have history of MRSA cellulitis. 10/25: She still has pain and tenderness on the affected areas. There is no significant improvement this morning compared to yesterday but lesions have not gone beyond the demarcations. Continue vancomcyin. Blood culture report pending. Wound culture is growing gram positive cocci. (2) Opiate dependence Is this a current diagnosis for this admission?: Yes Plan: Patient reports she had addiction problems with opiates in the past and is currently on methadone treatment. Methadone resumed. - Time Time Spent with patient: 15-24 minutes
[2018-10-25] MEDS: VANCOMYCIN HCL 1,250 MG in DEXTROSE 5%-WATER 250 ML IV SCH ×2 (14:32→22:19)
[2018-10-26] MEDS: KETOROLAC TROMETHAMINE INJ/PF 30 MG/1 ML SDV IV PRN (04:19)
[2018-10-26] MEDS: MORPHINE SULFATE 10 MG/ML INJ IV PRN ×3 (04:19→18:00)
[2018-10-26] MEDS: VANCOMYCIN HCL 1,250 MG in DEXTROSE 5%-WATER 250 ML IV SCH ×3 (06:26→23:20)
[2018-10-26 06:32] LABS: VANCOMYCIN,TROUGH 13.9 ug/mL (5.0-20.0)
[2018-10-26] MEDS: NICOTINE 21 MG/24 HR PATCH.TD24 TD PRN (10:23)
[2018-10-26] MEDS: METHADONE HCL 10 MG TABLET PO SCH (10:24)
[2018-10-26] MEDS: FONDAPARINUX SODIUM INJ 2.5 MG/0.5 ML DISP.SYRIN SUBCUT SCH (10:25)
[2018-10-26] MEDS ORDERED: KETOROLAC TROMETHAMINE 60 MG/2 ML SDV ONE (10:25)
[2018-10-26] MEDS ORDERED: SUCCINYLCHOLINE CHLORIDE INJ 200 MG/10 ML VIAL ONE (10:25)
[2018-10-26] MEDS ORDERED: DEXAMETHASONE SOD PHOSPHATE INJ 4 MG/1 ML VIAL ONE (10:25)
[2018-10-26] MEDS: CLINDAMYCIN 600 MG/D5W RTU 600 MG/50 ML RTUPB IV SCH ×2 (11:59→17:58)
--- NOTE | 2018-10-26 13:22 | PDOC CONSULTATION ---
Consultation Consult Date: 10/26/18 Attending physician:: IRWIN COOPER History of Present Illness Admission Date/PCP: 10/24/18 18:48 History of Present Illness: AUSTEN PRESTON is a 43 year old female with a PMH of perforated diverticulitis S/P colectomy and colostomy, history of opiate abuse now on methadone therapy and prior history of MRSA cellulitis who presented with a draining wound on the right upper back/shoulder area. Patient reports she had a pimple-like lesion on the mentioned area 3 days ago and this popped out spontaneously and developed into an open wound with some purulent drainage. She developed significant erythema and tenderness noticeably extending from the right mid back to the right shoulder area. She also reported of associated fever and chills her wound had been treated with dressing changes but is progressively getting more cellulitic Past Medical History GI Medical History: Reports: Diverticulitis - Diverticula, Ulcerative Colitis Infectious Medical History: Reports: Methicillin-Resistant Staph Aureus Past Surgical History Past Surgical History: Reports: Colostomy, Tubal Ligation Social History Smoking Status: Current Every Day Smoker Frequency of Alcohol Use: None Hx Recreational Drug Use: No Drugs: Methadone Hx Prescription Drug Abuse: Yes Family History Family History: Reviewed & Not Pertinent Parental Family History Reviewed: No Children Family History Reviewed: NA Sibling(s) Family History Reviewed.: NA Medication/Allergy Home Medications: Methadone HCl [Methadose] 130 mg PO DAILY 10/25/18 Allergies/Adverse Reactions: No Known Allergies Allergy (Verified 08/23/18 18:00) Review of Systems Constitutional: PRESENT: weakness Eyes: PRESENT: other - no vision changes Nose, Mouth, and Throat: PRESENT: other - no sore throat Breasts: PRESENT: other - no c/o breast masses Cardiovascular: PRESENT: other - no c/o chest pain Respiratory: PRESENT: other - no cough or sob Gastrointestinal: PRESENT: other - no abd pain Genitourinary: PRESENT: other - no dysuria Musculoskeletal: PRESENT: other - no weakness Neurological: PRESENT: other - no focal weakness Psychiatric: PRESENT: other Endocrine: PRESENT: other - no cold or heat intolerance Physical Exam Vital Signs: Temp Pulse Resp BP Pulse Ox 98.3 F 93 16 126/76 H 99 10/26/18 11:00 10/26/18 11:00 10/26/18 11:00 10/26/18 11:00 10/26/18 11:00 Intake & Output 10/25/18 10/26/18 10/27/18 06:59 06:59 06:59 Intake Total 290 2716 486 Balance 290 2716 486 Weight 101 kg 103.1 kg General appearance: PRESENT: no acute distress Head exam: PRESENT: atraumatic Eye exam: PRESENT: EOMI Mouth exam: PRESENT: dry mucosa Neck exam: PRESENT: full ROM Respiratory exam: PRESENT: clear to auscultation rio Cardiovascular exam: PRESENT: RRR Pulses: PRESENT: normal radial pulses, normal femoral pulses Vascular exam: PRESENT: pallor GI/Abdominal exam: PRESENT: soft Torso Front/Back Image: 1 - cellulitic, woody, with punctate wound, draining pus Rectal exam: PRESENT: deferred Extremities exam: PRESENT: full ROM Musculoskeletal exam: PRESENT: ambulatory, full ROM Neurological exam: PRESENT: alert, awake, oriented to person, oriented to place, oriented to time Psychiatric exam: PRESENT: anxious Skin exam: PRESENT: dry Results Laboratory Results: 10/25/18 11:13 10/26/18 05:38 10/26/18 05:38 Creatinine 0.57 Est GFR ( Amer) > 60 Est GFR (Non-Af Amer) > 60 10/25/18 05:10 Nasophary (Mrsa Only) MRSA Culture - Final NO MRSA RECOVERED 10/24/18 18:25 Back - Right Side Abscess Gram Stain - Final 10/24/18 18:25 Back - Right Side Abscess Wound Culture - Final Mrsa (Meth Resis Staph Aureus) No Anaerobic Organisms Impressions: Upper Extremity CT 10/24/18 15:23 IMPRESSION: No evidence of abscess or osteomyelitis. Head CT 10/24/18 15:25 IMPRESSION: NORMAL BRAIN CT WITHOUT CONTRAST. EVIDENCE OF ACUTE STROKE: NO. Assessment & Plan - Plan Summary Plan Summary: right posterior/lateral shoulder abscess with spreading cellulitis concerning for mrsa recommend wide debridement discussed risks/benifits with pt incluiding injury to adjacent nerves with resultant rt arm weakness large open wound need for later skin grafting shoulder numbness, weakness\bleeding infection, cva, mi, pt understands and agrees to proceed.
--- NOTE | 2018-10-26 13:47 | PDOC PROGRESS REPORT ---
Subjective Progress Note for:: 10/26/18 Subjective:: AUSTEN PRESTON is a 43 year old female with a PMH of perforated diverticulitis S/P colectomy and colostomy, history of opiate abuse now on methadone therapy and prior history of MRSA cellulitis who presented with a draining wound on the right upper back/shoulder area. She was admitted for an extensive cellulitis on the mentioned areas. 10/25: She still has pain and tenderness on the affected areas. There is no significant improvement this morning compared to yesterday but lesions have not gone beyond the demarcations. 10/26: Lesions appear worse today. The erythema has gone beyond the demarcations despite being on IV antibiotics. There is also a new area of erythema that has developed adjacent to the previous cellulitic lesions. Wound culture grew MRSA. Will consult surgery. Reason For Visit: CELLULITIS Physical Exam Vital Signs: Temp Pulse Resp BP Pulse Ox 98.3 F 93 16 126/76 H 99 10/26/18 11:00 10/26/18 11:00 10/26/18 11:00 10/26/18 11:00 10/26/18 11:00 Intake & Output 10/25/18 10/26/18 10/27/18 06:59 06:59 06:59 Intake Total 290 2716 536 Balance 290 2716 536 Weight 222 lb 10.67 oz 227 lb 4.745 oz General appearance: PRESENT: no acute distress, well-developed, well-nourished Head exam: PRESENT: atraumatic, normocephalic Eye exam: PRESENT: conjunctiva pink, EOMI, PERRLA. ABSENT: scleral icterus Ear exam: PRESENT: normal external ear exam Mouth exam: PRESENT: moist, tongue midline Neck exam: ABSENT: carotid bruit, JVD, lymphadenopathy, thyromegaly Respiratory exam: PRESENT: clear to auscultation rio. ABSENT: rales, rhonchi, wheezes Cardiovascular exam: PRESENT: RRR. ABSENT: diastolic murmur, rubs, systolic murmur Pulses: PRESENT: normal dorsalis pedis pul GI/Abdominal exam: PRESENT: normal bowel sounds, soft. ABSENT: distended, guarding, mass, organolmegaly, rebound, tenderness Rectal exam: PRESENT: deferred Neurological exam: PRESENT: alert, awake, oriented to person, oriented to place, oriented to time, oriented to situation, CN II-XII grossly intact. ABSENT: motor sensory deficit Skin exam: PRESENT: other - Lesions appear worse today. The erythema has gone beyond the demarcations despite being on IV antibiotics. There is also a new area of erythema that has developed adjacent to the previous cellulitic lesions. Results Laboratory Results: 10/25/18 11:13 10/26/18 05:38 10/26/18 05:38 Creatinine 0.57 Est GFR ( Amer) > 60 Est GFR (Non-Af Amer) > 60 10/25/18 05:10 Nasophary (Mrsa Only) MRSA Culture - Final NO MRSA RECOVERED 10/24/18 18:25 Back - Right Side Abscess Gram Stain - Final 10/24/18 18:25 Back - Right Side Abscess Wound Culture - Final Mrsa (Meth Resis Staph Aureus) No Anaerobic Organisms Impressions: Upper Extremity CT 10/24/18 15:23 IMPRESSION: No evidence of abscess or osteomyelitis. Head CT 10/24/18 15:25 IMPRESSION: NORMAL BRAIN CT WITHOUT CONTRAST. EVIDENCE OF ACUTE STROKE: NO. Assessment and Plan - Diagnosis (1) Cellulitis of back Is this a current diagnosis for this admission?: Yes Plan: Lesions have been demarcated. The cellulitis is quite extensive extending from the right upper back to the shoulder area. CT scan does not show any abscess. She does have history of MRSA cellulitis. 10/25: She still has pain and tenderness on the affected areas. There is no significant improvement this morning compared to yesterday but lesions have not gone beyond the demarcations. Continue vancomcyin. Blood culture report pending. Wound culture is growing gram positive cocci. 10/26: Lesions appear worse today. The erythema has gone beyond the demarcations despite being on IV antibiotics. There is also a new area of erythema that has developed adjacent to the previous cellulitic lesions. Wound culture grew MRSA. Will consult surgery. Continue IV antibiotics. (2) Abscess of back Is this a current diagnosis for this admission?: Yes Plan: Possible back abscess. As per number 1. (3) Opiate dependence Is this a current diagnosis for this admission?: Yes Plan: Patient reports she had addiction problems with opiates in the past and is curr ently on methadone treatment. On methadone. - Time Time Spent with patient: 25-34 minutes
[2018-10-26] MEDS ORDERED: BUPIVACAINE HCL 0.25% /EPINEPHRINE INJ/PF 30 ML SDV ONE (17:53)
[2018-10-26] MEDS ORDERED: MIDAZOLAM 2 MG/2 ML INJ ONE (19:06)
[2018-10-26] MEDS ORDERED: FENTANYL CITRATE INJ/PF 100 MCG/2 ML AMPUL ONE (19:06)
[2018-10-26] MEDS ORDERED: ONDANSETRON HCL INJ/PF 4 MG/2 ML SDV ONE (19:06)
[2018-10-26] MEDS ORDERED: PROPOFOL INJ 200 MG/20 ML VIAL IV ONE (19:06)
[2018-10-26] MEDS ORDERED: ACETAMINOPHEN 1,000 MG/100 ML RTUPB IV ONE (19:06)
[2018-10-26] MEDS ORDERED: LIDOCAINE 0.5% INJ-PF (5 MG/ML) 50 ML SDV ONE (19:07)
[2018-10-26] MEDS ORDERED: KETAMINE HCL INJ 500 MG/10 ML VIAL ONE (19:13)
[2018-10-26] MEDS ORDERED: ONDANSETRON HCL INJ/PF 4 MG/2 ML SDV IV PRN (20:12)
[2018-10-26] MEDS ORDERED: PROMETHAZINE HCL INJ 25 MG/1 ML VIAL IV PRN ×2 (20:12)
[2018-10-26] MEDS ORDERED: DIPHENHYDRAMINE HCL 50 MG/ML VIAL IV PRN (20:12)
[2018-10-26] MEDS ORDERED: OXYCODONE-ACETAMINOPHEN 5-325 MG TABLET PO PRN ×2 (20:12)
[2018-10-26] MEDS ORDERED: FENTANYL CITRATE INJ/PF 100 MCG/2 ML AMPUL IV PRN ×3 (20:12)
[2018-10-26] MEDS ORDERED: MEPERIDINE HCL/PF INJ 25 MG/1 ML DISP.SYRIN IV PRN (20:12)
[2018-10-26] MEDS ORDERED: MORPHINE SULFATE 10 MG/ML INJ IV PRN (20:12)
[2018-10-26] MEDS: FENTANYL CITRATE INJ/PF 100 MCG/2 ML AMPUL ONE ×2 (20:42→20:47)
--- NOTE | 2018-10-26 20:48 | Operative Report ---
Nonrecallable Operative Report DATE OF SURGERY: 10/26/18 PREOPERATIVE DIAGNOSIS: necrotizing fasciitis right posterior shoulder POSTOPERATIVE DIAGNOSIS: necrotizing fasciitis right posterior shoulder OPERATION: incision, drainage and debridement of necrotizing fasciitis rt posterior shoulder SURGEON: LESLEY SKY ANESTHESIA: GA TISSUE REMOVED OR ALTERED: skin right posterior shoulder COMPLICATIONS: none ESTIMATED BLOOD LOSS: 100cc INTRAOPERATIVE FINDINGS: see dicttion PROCEDURE: see dictation
--- NOTE | 2018-10-26 21:39 | OPERATIVE REPORT E ---
Operative Report NAME: AUSTEN PRESTON : 1975 AGE: 43Y DATE OF SURGERY: 10/26/2018 ROOM: 414 PREOPERATIVE DIAGNOSIS: NECROTIZING FASCIITIS, RIGHT POSTERIOR SHOULDER. POSTOPERATIVE DIAGNOSIS: NECROTIZING FASCIITIS, RIGHT POSTERIOR SHOULDER. OPERATION: Incision, debridement and excision of necrotizing fasciitis, right posterior shoulder. SURGEON: LESLEY SKY M.D. PROCEDURE: Patient was brought to the operating room, awake, alert, in stable condition, placed on the operative table in supine position, induced under general anesthesia, intubated. She was then placed in a right lateral decubitus position. Her right posterior shoulder, between the humeral clavicular joint and anterior edge of the axilla was inflamed, with a punctate lesion in the center of it, draining pus. There was about a 20 x 18 cm area that was cellulitic and crepitant. We made an elliptical incision from the top of the trapezius muscle down towards the apex of the axilla, underneath the right arm. That incision was about 15 cm long by about 7 cm wide. I carried my dissection out through subcutaneous tissue with Bovie cautery, reaching the fascia of the trapezius muscle medially and the deltoid muscle and latissimus muscle laterally. That entire area of skin and subcutaneous tissue was inflamed and draining pus. We continued our dissection down through all that subcutaneous tissue and fat and excised it off the fascia of the muscle. We carried our dissection cephalad and inferiorly until we reached normal bleeding tissue without evidence of any purulence. Once this was done, hemostasis was obtained with Bovie cautery. The wound was then packed with a Betadine-soaked sponge and sterile dressing was applied. Estimated blood loss was 100 mL. Sponge and needle counts were correct x2. The patient was awakened in the operating room, extubated and transferred to recovery in stable condition, with no complications. DICTATING PHYSICIAN: LESLEY SKY M.D. [id number] PHY#: [id number] ID: [id number] JOB#: [id number] ACCT: [id number] cc:LESLEY SKY M.D. >
[2018-10-26] MEDS: NORMAL SALINE 1000 ML 1,000 ML IV PRN (23:22)
[2018-10-27] MEDS: MORPHINE SULFATE 10 MG/ML INJ IV PRN ×5 (01:05→22:14)
[2018-10-27] MEDS: CLINDAMYCIN 600 MG/D5W RTU 600 MG/50 ML RTUPB IV SCH ×3 (01:07→17:31)
[2018-10-27] MEDS: VANCOMYCIN HCL 1,250 MG in DEXTROSE 5%-WATER 250 ML IV SCH ×3 (05:53→22:14)
[2018-10-27] MEDS: FONDAPARINUX SODIUM INJ 2.5 MG/0.5 ML DISP.SYRIN SUBCUT SCH (10:28)
[2018-10-27] MEDS: METHADONE HCL 10 MG TABLET PO SCH (10:29)
[2018-10-27 10:56] LABS: ABSOLUTE LYMPHOCYTES (AUTO) 1.7 10^3/uL (0.5-4.7); ABSOLUTE MONOCYTES (AUTO) 0.7 10^3/uL (0.1-1.4); ABSOLUTE NEUT (AUTO) 9.9 10^3/uL (1.7-8.2); BASOPHILS % (AUTO) 0.3 % (0-2); EOSINOPHILS % (AUTO) 0.1 % (0-6); HEMOGLOBIN 12.2 g/dL (12.0-15.5); LYMPHOCYTES % (AUTO) 13.8 % (13-45); MEAN CORPUSCULAR HGB CONC 33.8 g/dL (32.0-36.0); MEAN CORPUSCULAR VOLUME 89 fl (80-97); MONOCYTES % (AUTO) 5.4 % (3-13); PLATELET COUNT 316 10^3/uL (150-450); RED BLOOD COUNT 4.06 10^6/uL (3.72-5.28); SEGMENTED NEUTROPHILS % (AUTO) 80.4 % (42-78); TOTAL CELLS COUNTED % (AUTO) 100 %; WHITE BLOOD COUNT 12.3 10^3/uL (4.0-10.5)
[2018-10-27 11:15] LABS: ANION GAP 9 (5-19); BLOOD UREA NITROGEN 9 mg/dL (7-20); CALCIUM 9.1 mg/dL (8.4-10.2); CARBON DIOXIDE 27 mmol/L (22-30); CHLORIDE 103 mmol/L (98-107); GLUCOSE 150 mg/dL (75-110); POTASSIUM 4.4 mmol/L (3.6-5.0); SODIUM 138.5 mmol/L (137-145)
--- NOTE | 2018-10-27 12:53 | PDOC PROGRESS REPORT ---
Subjective Progress Note for:: 10/27/18 Subjective:: AUSTEN PRESTON is a 43 year old female with a PMH of perforated diverticulitis S/P colectomy and colostomy, history of opiate abuse now on methadone therapy and prior history of MRSA cellulitis who presented with a draining wound on the right upper back/shoulder area. She was admitted for an extensive cellulitis on the mentioned areas. 10/25: She still has pain and tenderness on the affected areas. There is no significant improvement this morning compared to yesterday but lesions have not gone beyond the demarcations. 10/26: Lesions appear worse today. The erythema has gone beyond the demarcations despite being on IV antibiotics. There is also a new area of erythema that has developed adjacent to the previous cellulitic lesions. Wound culture grew MRSA. Will consult surgery. 10/27: Patient was deemed to have necrotizing fasciitis. She underwent incision, drainage and debridement last night by surgery. She complains of pain this morning. Noted soaked packs on debrided wound. Will increase morphine. Reason For Visit: CELLULITIS Physical Exam Vital Signs: Temp Pulse Resp BP Pulse Ox 98.5 F 89 16 131/64 H 94 10/27/18 08:00 10/27/18 08:00 10/27/18 08:00 10/27/18 08:00 10/27/18 08:00 Intake & Output 10/26/18 10/27/18 10/28/18 06:59 06:59 06:59 Intake Total 2716 4086 300 Output Total 200 Balance 2716 3886 300 Weight 227 lb 4.745 oz 231 lb 4.238 oz General appearance: PRESENT: no acute distress, well-developed, well-nourished Head exam: PRESENT: atraumatic, normocephalic Eye exam: PRESENT: conjunctiva pink, EOMI, PERRLA. ABSENT: scleral icterus Ear exam: PRESENT: normal external ear exam Mouth exam: PRESENT: moist, tongue midline Neck exam: ABSENT: carotid bruit, JVD, lymphadenopathy, thyromegaly Respiratory exam: PRESENT: clear to auscultation rio. ABSENT: rales, rhonchi, wheezes Cardiovascular exam: PRESENT: RRR. ABSENT: diastolic murmur, rubs, systolic murmur Vascular exam: PRESENT: normal capillary refill GI/Abdominal exam: PRESENT: normal bowel sounds, soft. ABSENT: distended, guarding, mass, organolmegaly, rebound, tenderness Rectal exam: PRESENT: deferred Neurological exam: PRESENT: alert, awake, oriented to person, oriented to place, oriented to time, oriented to situation, CN II-XII grossly intact. ABSENT: motor sensory deficit Results Laboratory Results: 10/27/18 10:25 10/27/18 10:25 10/27/18 10/27/18 10:25 10:25 WBC 12.3 H RBC 4.06 Hgb 12.2 Hct 36.0 MCV 89 MCH 30.0 MCHC 33.8 RDW 14.0 Plt Count 316 Seg Neutrophils % 80.4 H Lymphocytes % 13.8 Monocytes % 5.4 Eosinophils % 0.1 Basophils % 0.3 Absolute Neutrophils 9.9 H Absolute Lymphocytes 1.7 Absolute Monocytes 0.7 Absolute Eosinophils 0.0 Absolute Basophils 0.0 Sodium 138.5 Potassium 4.4 Chloride 103 Carbon Dioxide 27 Anion Gap 9 BUN 9 Creatinine 0.55 Est GFR ( Amer) > 60 Est GFR (Non-Af Amer) > 60 Glucose 150 H Calcium 9.1 10/25/18 05:10 Nasophary (Mrsa Only) MRSA Culture - Final NO MRSA RECOVERED Impressions: Upper Extremity CT 10/24/18 15:23 IMPRESSION: No evidence of abscess or osteomyelitis. Head CT 10/24/18 15:25 IMPRESSION: NORMAL BRAIN CT WITHOUT CONTRAST. EVIDENCE OF ACUTE STROKE: NO. Assessment and Plan - Diagnosis (1) Necrotizing fasciitis Is this a current diagnosis for this admission?: Yes Plan: 10/27: Patient was deemed to have necrotizing fasciitis. She underwent incision, drainage and debridement last night by surgery. She complains of pain this morning. Noted soaked packs on debrided wound. Will increase morphine to 3 mg q4h prn. Continue IV antibiotics for now. (2) Cellulitis of back Is this a current diagnosis for this admission?: Yes Plan: Lesions have been demarcated. The cellulitis is quite extensive extending from the right upper back to the shoulder area. CT scan does not show any abscess. She does have history of MRSA cellulitis. 10/25: She still has pain and tenderness on the affected areas. There is no significant improvement this morning compared to yesterday but lesions have not gone beyond the demarcations. Continue vancomcyin. Blood culture report pending. Wound culture is growing gram positive cocci. 10/26: Lesions appear worse today. The erythema has gone beyond the demarcations despite being on IV antibiotics. There is also a new area of erythema that has developed adjacent to the previous cellulitic lesions. Wound culture grew MRSA. Will consult surgery. Continue IV antibiotics. 10/27: As per number 1. (3) Abscess of back Is this a current diagnosis for this admission?: Yes Plan: As per number 1. (4) Opiate dependence Is this a current diagnosis for this admission?: Yes Plan: Patient reports she had addiction problems with opiates in the past and is currently on methadone treatment. On methadone. - Time Time Spent with patient: 25-34 minutes
[2018-10-27] MEDS: NICOTINE 21 MG/24 HR PATCH.TD24 TD PRN (14:15)
[2018-10-27] MEDS: NORMAL SALINE 1000 ML 1,000 ML IV PRN (17:31)
--- NOTE | 2018-10-27 19:30 | PDOC PROGRESS REPORT ---
Subjective Progress Note for:: 10/27/18 Subjective:: pains operative site right soulder Reason For Visit: CELLULITIS Physical Exam Vital Signs: Temp Pulse Resp BP Pulse Ox 98.9 F 81 17 123/64 96 10/27/18 16:00 10/27/18 16:00 10/27/18 16:00 10/27/18 16:00 10/27/18 16:00 Intake & Output 10/26/18 10/27/18 10/28/18 06:59 06:59 06:59 Intake Total 2716 4086 1744 Output Total 200 Balance 2716 3886 1744 Weight 103.1 kg 104.9 kg Exam: Dressings removed. Large wound but looks clean and dry. Repacked with wet to dry saline 4x4s. Will likely need a wound vac possibly starting tomorrow. Recheck WBC in am. Has been trending down Results Laboratory Results: 10/27/18 10:25 10/27/18 10:25 10/27/18 10/27/18 10:25 10:25 WBC 12.3 H RBC 4.06 Hgb 12.2 Hct 36.0 MCV 89 MCH 30.0 MCHC 33.8 RDW 14.0 Plt Count 316 Seg Neutrophils % 80.4 H Lymphocytes % 13.8 Monocytes % 5.4 Eosinophils % 0.1 Basophils % 0.3 Absolute Neutrophils 9.9 H Absolute Lymphocytes 1.7 Absolute Monocytes 0.7 Absolute Eosinophils 0.0 Absolute Basophils 0.0 Sodium 138.5 Potassium 4.4 Chloride 103 Carbon Dioxide 27 Anion Gap 9 BUN 9 Creatinine 0.55 Est GFR ( Amer) > 60 Est GFR (Non-Af Amer) > 60 Glucose 150 H Calcium 9.1 Impressions: Upper Extremity CT 10/24/18 15:23 IMPRESSION: No evidence of abscess or osteomyelitis. Head CT 10/24/18 15:25 IMPRESSION: NORMAL BRAIN CT WITHOUT CONTRAST. EVIDENCE OF ACUTE STROKE: NO.
[2018-10-28] MEDS: CLINDAMYCIN 600 MG/D5W RTU 600 MG/50 ML RTUPB IV SCH ×3 (02:45→17:33)
[2018-10-28] MEDS: MORPHINE SULFATE 10 MG/ML INJ IV PRN ×5 (02:51→20:42)
[2018-10-28] MEDS: VANCOMYCIN HCL 1,250 MG in DEXTROSE 5%-WATER 250 ML IV SCH ×3 (06:01→22:44)
[2018-10-28] MEDS: FONDAPARINUX SODIUM INJ 2.5 MG/0.5 ML DISP.SYRIN SUBCUT SCH (07:43)
[2018-10-28] MEDS: METHADONE HCL 10 MG TABLET PO SCH (09:06)
[2018-10-28] MEDS: NICOTINE 21 MG/24 HR PATCH.TD24 TD PRN (09:55)
--- NOTE | 2018-10-28 10:12 | PDOC PROGRESS REPORT ---
Subjective Progress Note for:: 10/28/18 Subjective:: Patient having some back pain Reason For Visit: CELLULITIS Physical Exam Vital Signs: Temp Pulse Resp BP Pulse Ox 99 F 86 18 131/52 H 99 10/28/18 08:00 10/28/18 08:00 10/28/18 08:00 10/28/18 08:00 10/28/18 08:00 Intake & Output 10/27/18 10/28/18 10/29/18 06:59 06:59 06:59 Intake Total 4086 2869 Output Total 200 Balance 3886 2869 Weight 104.9 kg 103.3 kg General appearance: PRESENT: no acute distress GI/Abdominal exam: PRESENT: other - Right shoulder dressing removed. The large wound with exposed cutaneous tissue and multiple skeletal muscle groups clean, dry, no foul smelling drainage. No evidence of cellulitis Results Laboratory Results: 10/27/18 10:25 10/27/18 10:25 10/27/18 10/27/18 10:25 10:25 WBC 12.3 H RBC 4.06 Hgb 12.2 Hct 36.0 MCV 89 MCH 30.0 MCHC 33.8 RDW 14.0 Plt Count 316 Seg Neutrophils % 80.4 H Lymphocytes % 13.8 Monocytes % 5.4 Eosinophils % 0.1 Basophils % 0.3 Absolute Neutrophils 9.9 H Absolute Lymphocytes 1.7 Absolute Monocytes 0.7 Absolute Eosinophils 0.0 Absolute Basophils 0.0 Sodium 138.5 Potassium 4.4 Chloride 103 Carbon Dioxide 27 Anion Gap 9 BUN 9 Creatinine 0.55 Est GFR ( Amer) > 60 Est GFR (Non-Af Amer) > 60 Glucose 150 H Calcium 9.1 10/26/18 20:04 Shoulder - Right Side Abscess Gram Stain - Final 10/26/18 20:04 Shoulder - Right Side Abscess Wound Culture - Final Mrsa (Meth Resis Staph Aureus) No Anaerobic Organisms Impressions: Upper Extremity CT 10/24/18 15:23 IMPRESSION: No evidence of abscess or osteomyelitis. Head CT 10/24/18 15:25 IMPRESSION: NORMAL BRAIN CT WITHOUT CONTRAST. EVIDENCE OF ACUTE STROKE: NO. Assessment & Plan - Diagnosis (1) Necrotizing fasciitis Is this a current diagnosis for this admission?: Yes Plan: Impression: Status post thorough operative debridement, with control of sepsis; no indication for further debridement at this time my: Growing MRSA and patient with history of same Recommendations 1. We will start wound VAC therapy; orders written; once wound bed granulating, patient be appropriate candidate for skin graft. 2. Continue intravenous antibiotics. (2) Opiate dependence Is this a current diagnosis for this admission?: Yes
[2018-10-28] MEDS: KETOROLAC TROMETHAMINE INJ/PF 30 MG/1 ML SDV IV PRN ×2 (11:23→22:43)
--- NOTE | 2018-10-28 13:43 | PDOC PROGRESS REPORT ---
Subjective Progress Note for:: 10/28/18 Subjective:: AUSTEN PRESTON is a 43 year old female with a PMH of perforated diverticulitis S/P colectomy and colostomy, history of opiate abuse now on methadone therapy and prior history of MRSA cellulitis who presented with a draining wound on the right upper back/shoulder area. She was admitted for an extensive cellulitis on the mentioned areas. 10/25: She still has pain and tenderness on the affected areas. There is no significant improvement this morning compared to yesterday but lesions have not gone beyond the demarcations. 10/26: Lesions appear worse today. The erythema has gone beyond the demarcations despite being on IV antibiotics. There is also a new area of erythema that has developed adjacent to the previous cellulitic lesions. Wound culture grew MRSA. Will consult surgery. 10/27: Patient was deemed to have necrotizing fasciitis. She underwent incision, drainage and debridement last night by surgery. She complains of pain this morning. Noted soaked packs on debrided wound. Will increase morphine. 10/28: No acute event overnight. Patient was re evaluated by surgery this morning and had wound vac placement. Patient complains of more pain during placement but on encounter, she is not in acute distress but does complain it hurt more with the wound vac. No fever or chills. Reason For Visit: CELLULITIS Physical Exam Vital Signs: Temp Pulse Resp BP Pulse Ox 98.4 F 80 18 145/68 H 95 10/28/18 12:00 10/28/18 12:00 10/28/18 12:00 10/28/18 12:00 10/28/18 12:00 Intake & Output 10/27/18 10/28/18 10/29/18 06:59 06:59 06:59 Intake Total 4086 2869 300 Output Total 200 Balance 3886 2869 300 Weight 231 lb 4.238 oz 227 lb 11.8 oz General appearance: PRESENT: no acute distress, well-developed, well-nourished Head exam: PRESENT: atraumatic, normocephalic Eye exam: PRESENT: conjunctiva pink, EOMI, PERRLA. ABSENT: scleral icterus Ear exam: PRESENT: normal external ear exam Mouth exam: PRESENT: moist, tongue midline Neck exam: ABSENT: carotid bruit, JVD, lymphadenopathy, thyromegaly Respiratory exam: PRESENT: clear to auscultation rio. ABSENT: rales, rhonchi, wheezes Cardiovascular exam: PRESENT: RRR. ABSENT: diastolic murmur, rubs, systolic murmur Pulses: PRESENT: normal dorsalis pedis pul GI/Abdominal exam: PRESENT: normal bowel sounds, soft. ABSENT: distended, guarding, mass, organolmegaly, rebound, tenderness Rectal exam: PRESENT: deferred Extremities exam: PRESENT: full ROM. ABSENT: calf tenderness, clubbing, pedal edema Neurological exam: PRESENT: alert, awake, oriented to person, oriented to place, oriented to time, oriented to situation, CN II-XII grossly intact. ABSENT: motor sensory deficit Skin exam: PRESENT: other - wound vac in place on debrided/incised area Results Laboratory Results: 10/27/18 10:25 10/27/18 10:25 10/26/18 20:04 Shoulder - Right Side Abscess Gram Stain - Final 10/26/18 20:04 Shoulder - Right Side Abscess Wound Culture - Final Mrsa (Meth Resis Staph Aureus) No Anaerobic Organisms Impressions: Upper Extremity CT 10/24/18 15:23 IMPRESSION: No evidence of abscess or osteomyelitis. Head CT 10/24/18 15:25 IMPRESSION: NORMAL BRAIN CT WITHOUT CONTRAST. EVIDENCE OF ACUTE STROKE: NO. Assessment and Plan - Diagnosis (1) Necrotizing fasciitis Is this a current diagnosis for this admission?: Yes Plan: 10/27: Patient was deemed to have necrotizing fasciitis. She underwent incision, drainage and debridement last night by surgery. She complains of pain this morning. Noted soaked packs on debrided wound. Will increase morphine to 3 mg q4h prn. Continue IV antibiotics for now. 10/28: Patient was re evaluated by surgery this morning and had wound vac placement. Patient complains of more pain during placement but on encounter, she is not in acute distress but does complain it hurt more with the wound vac. (2) Cellulitis of back Is this a current diagnosis for this admission?: Yes Plan: Lesions have been demarcated. The cellulitis is quite extensive extending from the right upper back to the shoulder area. CT scan does not show any abscess. She does have history of MRSA cellulitis. 10/25: She still has pain and tenderness on the affected areas. There is no significant improvement this morning compared to yesterday but lesions have not gone beyond the demarcations. Continue vancomcyin. Blood culture report pending. Wound culture is growing gram positive cocci. 10/26: Lesions appear worse today. The erythema has gone beyond the demarcations despite being on IV antibiotics. There is also a new area of erythema that has developed adjacent to the previous cellulitic lesions. Wound culture grew MRSA. Will consult surgery. Continue IV antibiotics. 10/28: As per number 1. (3) Abscess of back Is this a current diagnosis for this admission?: Yes Plan: As per number 1. (4) Opiate dependence Is this a current diagnosis for this admission?: Yes Plan: Patient reports she had addiction problems with opiates in the past and is curr ently on methadone treatment. On methadone. - Time Time Spent with patient: 25-34 minutes
[2018-10-29] MEDS: CLINDAMYCIN 600 MG/D5W RTU 600 MG/50 ML RTUPB IV SCH ×3 (03:26→17:26)
[2018-10-29] MEDS: MORPHINE SULFATE 10 MG/ML INJ IV PRN ×4 (03:27→18:27)
[2018-10-29] MEDS: VANCOMYCIN HCL 1,250 MG in DEXTROSE 5%-WATER 250 ML IV SCH ×3 (06:52→22:02)
[2018-10-29] MEDS: FONDAPARINUX SODIUM INJ 2.5 MG/0.5 ML DISP.SYRIN SUBCUT SCH (08:17)
[2018-10-29] MEDS: KETOROLAC TROMETHAMINE INJ/PF 30 MG/1 ML SDV IV PRN ×3 (08:24→18:28)
[2018-10-29] MEDS: METHADONE HCL 10 MG TABLET PO SCH (09:31)
[2018-10-29] MEDS: NORMAL SALINE 1000 ML 1,000 ML IV PRN (09:41)
--- NOTE | 2018-10-29 09:49 | PDOC PROGRESS REPORT ---
Subjective Progress Note for:: 10/29/18 Subjective:: 43 year old female with a PMH of perforated diverticulitis S/P colectomy and colostomy, history of opiate abuse now on methadone therapy and prior history of MRSA cellulitis who presented with a draining wound on the right upper back/shoulder area. Patient reports she had a pimple-like lesion on the mentioned area 3 days ago and this popped out spontaneously and developed into an open wound with some purulent drainage. She developed significant erythema and tenderness noticeably extending from the right mid back to the right shoulder area. She also reported of associated fever and chills. 10/25: She still has pain and tenderness on the affected areas. There is no significant improvement this morning compared to yesterday but lesions have not gone beyond the demarcations. 10/26: Lesions appear worse today. The erythema has gone beyond the demarcations despite being on IV antibiotics. There is also a new area of erythema that has developed adjacent to the previous cellulitic lesions. Wound culture grew MRSA. Will consult surgery. 10/27: Patient was deemed to have necrotizing fasciitis. She underwent incision, drainage and debridement last night by surgery. She complains of pain this morning. Noted soaked packs on debrided wound. Will increase morphine. 10/28: No acute event overnight. Patient was re evaluated by surgery this morning and had wound vac placement. Patient complains of more pain during placement but on encounter, she is not in acute distress but does complain it hurt more with the wound vac. No fever or chills. Her 2018-no acute events in last 24 hours. Surgical team is following the patient. Patient has a necrotizing fasciitis status post incision and drainage and debridement on 10/26/2018. Patient has a wound VAC. Presently on IV clindamycin and IV vancomycin. Patient is afebrile. Cultures from the right shoulder abscess came back positive for MRSA. T-max is 98.5 blood pressure is 152/72. Presently receiving methadone 130 mg and morphine 3 mg IV every 4 as needed she is also receiving Toradol IV every 6 as needed patient is requesting to increase the frequency of Toradol to every 4 as needed. Reason For Visit: CELLULITIS Physical Exam Vital Signs: Temp Pulse Resp BP Pulse Ox 98.5 F 77 18 152/71 H 96 10/29/18 08:00 10/29/18 08:00 10/29/18 08:00 10/29/18 08:00 10/29/18 08:00 Intake & Output 10/28/18 10/29/18 10/30/18 06:59 06:59 06:59 Intake Total 2869 3400 Balance 2869 3400 Weight 103.3 kg 104.9 kg General appearance: PRESENT: mild distress, obese Head exam: PRESENT: atraumatic Eye exam: PRESENT: PERRLA Ear exam: PRESENT: normal external ear exam Mouth exam: PRESENT: moist, tongue midline Neck exam: ABSENT: carotid bruit, JVD, lymphadenopathy, thyromegaly Respiratory exam: PRESENT: clear to auscultation rio. ABSENT: rales, rhonchi, wheezes Cardiovascular exam: PRESENT: RRR. ABSENT: diastolic murmur, rubs, systolic murmur GI/Abdominal exam: PRESENT: normal bowel sounds, soft. ABSENT: distended, guarding, mass, organolmegaly, rebound, tenderness Extremities exam: PRESENT: full ROM, other - Patient has a wound VAC attached to the right shoulder.. ABSENT: calf tenderness, clubbing, pedal edema Neurological exam: PRESENT: alert, awake, oriented to person, oriented to place, oriented to time, oriented to situation, CN II-XII grossly intact. ABSENT: motor sensory deficit Psychiatric exam: PRESENT: appropriate affect, normal mood. ABSENT: homicidal ideation, suicidal ideation Results Laboratory Results: 10/27/18 10:25 10/27/18 10:25 10/26/18 20:04 Shoulder - Right Side Abscess Gram Stain - Final 10/26/18 20:04 Shoulder - Right Side Abscess Wound Culture - Final Mrsa (Meth Resis Staph Aureus) No Anaerobic Organisms Impressions: Upper Extremity CT 10/24/18 15:23 IMPRESSION: No evidence of abscess or osteomyelitis. Head CT 10/24/18 15:25 IMPRESSION: NORMAL BRAIN CT WITHOUT CONTRAST. EVIDENCE OF ACUTE STROKE: NO. Assessment and Plan - Diagnosis (1) Necrotizing fasciitis Is this a current diagnosis for this admission?: Yes Plan: 10/27: Patient was deemed to have necrotizing fasciitis. She underwent incision, drainage and debridement last night by surgery. She complains of pain this morning. Noted soaked packs on debrided wound. Will increase morphine to 3 mg q4h prn. Continue IV antibiotics for now. 10/28: Patient was re evaluated by surgery this morning and had wound vac placement. Patient complains of more pain during placement but on encounter, she is not in acute distress but does complain it hurt more with the wound vac. 10/29/2018-patient has a necrotizing fasciitis posterior aspect of the right shoulder status post incision, drainage, debridement. Patient has a wound VAC. Draining well. Presently on morphine 3 mg every 4 as needed, methadone 30 mg daily, Toradol IV every 6 as needed. Plan to increase the frequency of Toradol to every 4 as needed. On IV clindamycin and vancomycin plan is to continue the present management. The wound cultures from the right shoulder came back positive for MRSA. (2) Cellulitis of back Is this a current diagnosis for this admission?: Yes Plan: Lesions have been demarcated. The cellulitis is quite extensive extending from the right upper back to the shoulder area. CT scan does not show any abscess. She does have history of MRSA cellulitis. 10/25: She still has pain and tenderness on the affected areas. There is no significant improvement this morning compared to yesterday but lesions have not gone beyond the demarcations. Continue vancomcyin. Blood culture report pending. Wound culture is growing gram positive cocci. 10/26: Lesions appear worse today. The erythema has gone beyond the demarcations despite being on IV antibiotics. There is also a new area of erythema that has developed adjacent to the previous cellulitic lesions. Wound culture grew MRSA. Will consult surgery. Continue IV antibiotics. 10/28: As per number 1. 10/29/2018-patient has a cellulitis of the back presently on IV clindamycin and IV vancomycin. Surgery is following the patient. The erythema and redness is stabilized. Plan is to continue the present management. (3) Opiate dependence Is this a current diagnosis for this admission?: Yes Plan: Patient reports she had addiction problems with opiates in the past and is currently on methadone treatment. On methadone. 10/29/2018-patient has a history of opioid dependency she is on methadone at home. Plan is to continue methadone while she was in the hospital. (4) Morbid obesity Is this a current diagnosis for this admission?: No Plan: For 2018-patient's BMI is more than 36. Diet exercise weight loss lifestyle modifications are discussed with the patient. Dietary consult was requested. - Time Time Spent with patient: 15-24 minutes Medications reviewed and adjusted accordingly: Yes Anticipated discharge: Home, Home with Homehealth
[2018-10-29] MEDS: NICOTINE 21 MG/24 HR PATCH.TD24 TD PRN (10:41)
--- NOTE | 2018-10-29 10:41 | PDOC PROGRESS REPORT ---
Subjective Progress Note for:: 10/29/18 Reason For Visit: CELLULITIS Physical Exam Vital Signs: Temp Pulse Resp BP Pulse Ox 98.5 F 77 18 152/71 H 96 10/29/18 08:00 10/29/18 08:00 10/29/18 08:00 10/29/18 08:00 10/29/18 08:00 Intake & Output 10/28/18 10/29/18 10/30/18 06:59 06:59 06:59 Intake Total 2869 3400 Balance 2869 3400 Weight 103.3 kg 104.9 kg Results Laboratory Results: 10/27/18 10:25 10/27/18 10:25 10/26/18 20:04 Shoulder - Right Side Abscess Gram Stain - Final 10/26/18 20:04 Shoulder - Right Side Abscess Wound Culture - Final Mrsa (Meth Resis Staph Aureus) No Anaerobic Organisms Impressions: Upper Extremity CT 10/24/18 15:23 IMPRESSION: No evidence of abscess or osteomyelitis. Head CT 10/24/18 15:25 IMPRESSION: NORMAL BRAIN CT WITHOUT CONTRAST. EVIDENCE OF ACUTE STROKE: NO. Assessment & Plan - Diagnosis (1) Necrotizing fasciitis Is this a current diagnosis for this admission?: Yes - Plan Summary Plan Summary: This is a 43-year-old female status post debridement of a necrotizing soft tissue infection of the right shoulder/back. The patient has a wound VAC in place today. There is no leak noted on the wound VAC. The patient may benefit from delayed closure of the wound with rotation flap. This will likely need to be performed in 1-2 weeks, after good granulation tissue has started. Continue wound VAC for now. Plan to change wound VAC tomorrow. Will follow.
[2018-10-29 12:14] LABS: ABSOLUTE EOSINOPHILS # (AUTO) 0.3 10^3/uL (0.0-0.6); ABSOLUTE LYMPHOCYTES (AUTO) 2.7 10^3/uL (0.5-4.7); ABSOLUTE MONOCYTES (AUTO) 0.7 10^3/uL (0.1-1.4); ABSOLUTE NEUT (AUTO) 4.7 10^3/uL (1.7-8.2); BASOPHILS % (AUTO) 0.4 % (0-2); EOSINOPHILS % (AUTO) 3.7 % (0-6); HEMATOCRIT 35.6 % (36.0-47.0); HEMOGLOBIN 12.3 g/dL (12.0-15.5); LYMPHOCYTES % (AUTO) 31.8 % (13-45); MEAN CORPUSCULAR HEMOGLOBIN 30.2 pg (27.0-33.4); MEAN CORPUSCULAR HGB CONC 34.5 g/dL (32.0-36.0); MEAN CORPUSCULAR VOLUME 88 fl (80-97); MONOCYTES % (AUTO) 8.8 % (3-13); PLATELET COUNT 317 10^3/uL (150-450); RED BLOOD COUNT 4.06 10^6/uL (3.72-5.28); RED CELL DISTRIBUTION WIDTH 14.3 % (11.5-14.0); SEGMENTED NEUTROPHILS % (AUTO) 55.3 % (42-78); TOTAL CELLS COUNTED % (AUTO) 100 %; WHITE BLOOD COUNT 8.6 10^3/uL (4.0-10.5)
[2018-10-29 12:31] LABS: ALANINE AMINOTRANSFERASE 38 U/L (9-52); ALBUMIN 3.1 g/dL (3.5-5.0); ALKALINE PHOSPHATASE 80 U/L (38-126); ANION GAP 6 (5-19); ASPARTATE AMINO TRANSFERASE 17 U/L (14-36); BILIRUBIN,DIRECT 0.2 mg/dL (0.0-0.4); BILIRUBIN,TOTAL 0.2 mg/dL (0.2-1.3); BLOOD UREA NITROGEN 9 mg/dL (7-20); CALCIUM 9.2 mg/dL (8.4-10.2); CARBON DIOXIDE 31 mmol/L (22-30); CHLORIDE 103 mmol/L (98-107); GLUCOSE 91 mg/dL (75-110); POTASSIUM 4.3 mmol/L (3.6-5.0); SODIUM 139.6 mmol/L (137-145); TOTAL PROTEIN 6.1 g/dL (6.3-8.2)
--- NOTE | 2018-10-29 15:45 | Progress Note ---
Provider Note Provider Note: ID Consult Note Asked to review patient's chart. Pt is a 43 year old woman with hx of prior MRSA infections, opiate abuse now on methadone therapy, and perforated diverticulitis s/p colectomy and colostomy bag who was admitted on 10/24 with necrotizing soft tissue infection involving the R posterior shoulder that ultimately required incision and excisional debridement on 10/26. The purulent soft tissue infection developed from a pimple-like lesion noticed by the pation 3 days prior to admission. She was appreciated as having a large area of erythema and tenderness with a punctate wound draining pus. Blood cultures have been negative. Culture from the wound grew MRSA. Pt has been receiving both vancomycin from 10/25 to present and clindamycin from 10/26 to present. She has a wound vac applied now. She has had improvement in her leukocytosis. Impression Necrotizing soft tissue infection due to MRSA, R posterior shoulder, s/p debridement Situations where there is a recommended role for addition of clindamycin to suppress toxin production in addition to a cell wall inhibitor antibiotic is in the setting of necrotizing fasciitis and/or streptococcal toxic shock syndrome caused by group A Streptoccus, clostridial myonecrosis (gas gangrene), or toxic shock syndromes due to Group A strep or Staph aureus (diffuse erythroderma being the skin manifestation here, not pyoderma). There may be a benefit to clindamycin from the standpoint of suppressing protein synthesis inhibition outside of these situations, but it is theoretical. Necrotizing soft tissue infections do not always require clindamycin. Often what is most needed is surgical debridement as penetration into devitalized or walled-off acidic spaces is a limiting factor, regardless of the specific antibiotic selected. This occurred on 10/26. At this point, pt has had appropriate source control with debridement. She has already shown improvement. When wound was examined on 10/28 little cellulitis was noted to be present. Can continue with a single IV agent and plan for PO switch at discharge. Recommendations - IV vancomycin can be discontinued. - Can continue IV clindamycin with plan for PO transition to clindamycin 450 mg TID or QID at discharge. Clindamycin is lipophilic and obese patients, such as Ms Roman, might benefit from a higher dose (450 mg QID clindamycin), but if it is not well tolerated then give clindamycin 450 TID instead. PO Bactrim 2 DS BID is an alternative. Pt is self pay, and ultimately cost may be the deciding factor between the two. - Pt has already had 3 days of vancomycin and clindamycin after surgical debridement, and when the wound was examined on 10/28 the wound was appreciated to be clean, dry and with little cellulitis noted. Completing another few days of antibiotics may be appropriate, depending on how much residual erythema is present, but I doubt a long course of treatment is necessary (e.g. another 4-7 days). Kelvin Keating MD [facility] Infectious Diseases pager [phone]
[2018-10-29] MEDS: DIPHENHYDRAMINE HCL 50 MG/ML VIAL IV PRN ×2 (17:26→22:10)
[2018-10-30] MEDS: KETOROLAC TROMETHAMINE INJ/PF 30 MG/1 ML SDV IV PRN ×5 (00:09→19:10)
[2018-10-30] MEDS: MORPHINE SULFATE 10 MG/ML INJ IV PRN ×5 (00:10→19:09)
[2018-10-30] MEDS: CLINDAMYCIN 600 MG/D5W RTU 600 MG/50 ML RTUPB IV SCH ×3 (03:22→17:38)
[2018-10-30 05:00] LABS: ABSOLUTE BASOPHILS # (AUTO) 0.1 10^3/uL (0.0-0.2); ABSOLUTE EOSINOPHILS # (AUTO) 0.3 10^3/uL (0.0-0.6); ABSOLUTE LYMPHOCYTES (AUTO) 3.1 10^3/uL (0.5-4.7); ABSOLUTE MONOCYTES (AUTO) 0.9 10^3/uL (0.1-1.4); ABSOLUTE NEUT (AUTO) 4.8 10^3/uL (1.7-8.2); BASOPHILS % (AUTO) 1.5 % (0-2); EOSINOPHILS % (AUTO) 3.7 % (0-6); HEMATOCRIT 35.5 % (36.0-47.0); LYMPHOCYTES % (AUTO) 33.3 % (13-45); MEAN CORPUSCULAR HEMOGLOBIN 29.6 pg (27.0-33.4); MEAN CORPUSCULAR HGB CONC 33.8 g/dL (32.0-36.0); MEAN CORPUSCULAR VOLUME 88 fl (80-97); PLATELET COUNT 334 10^3/uL (150-450); RED BLOOD COUNT 4.06 10^6/uL (3.72-5.28); RED CELL DISTRIBUTION WIDTH 13.9 % (11.5-14.0); SEGMENTED NEUTROPHILS % (AUTO) 51.5 % (42-78); TOTAL CELLS COUNTED % (AUTO) 100 %; WHITE BLOOD COUNT 9.3 10^3/uL (4.0-10.5)
[2018-10-30 05:22] LABS: ALANINE AMINOTRANSFERASE 26 U/L (9-52); ALBUMIN 3.1 g/dL (3.5-5.0); ALKALINE PHOSPHATASE 80 U/L (38-126); ANION GAP 6 (5-19); ASPARTATE AMINO TRANSFERASE 24 U/L (14-36); BILIRUBIN,DIRECT 0.4 mg/dL (0.0-0.4); BILIRUBIN,TOTAL 0.5 mg/dL (0.2-1.3); BLOOD UREA NITROGEN 15 mg/dL (7-20); CALCIUM 8.9 mg/dL (8.4-10.2); CARBON DIOXIDE 27 mmol/L (22-30); CHLORIDE 104 mmol/L (98-107); GLUCOSE 113 mg/dL (75-110); POTASSIUM 4.6 mmol/L (3.6-5.0); SODIUM 136.5 mmol/L (137-145); TOTAL PROTEIN 6.2 g/dL (6.3-8.2)
[2018-10-30] MEDS: VANCOMYCIN HCL 1,250 MG in DEXTROSE 5%-WATER 250 ML IV SCH (05:44)
[2018-10-30] MEDS: DIPHENHYDRAMINE HCL 50 MG/ML VIAL IV PRN (05:59)
--- NOTE | 2018-10-30 09:53 | PDOC PROGRESS REPORT ---
Subjective Progress Note for:: 10/30/18 Subjective:: 43 year old female with a PMH of perforated diverticulitis S/P colectomy and colostomy, history of opiate abuse now on methadone therapy and prior history of MRSA cellulitis who presented with a draining wound on the right upper back/shoulder area. Patient reports she had a pimple-like lesion on the mentioned area 3 days ago and this popped out spontaneously and developed into an open wound with some purulent drainage. She developed significant erythema and tenderness noticeably extending from the right mid back to the right shoulder area. She also reported of associated fever and chills. 10/25: She still has pain and tenderness on the affected areas. There is no significant improvement this morning compared to yesterday but lesions have not gone beyond the demarcations. 10/26: Lesions appear worse today. The erythema has gone beyond the demarcations despite being on IV antibiotics. There is also a new area of erythema that has developed adjacent to the previous cellulitic lesions. Wound culture grew MRSA. Will consult surgery. 10/27: Patient was deemed to have necrotizing fasciitis. She underwent incision, drainage and debridement last night by surgery. She complains of pain this morning. Noted soaked packs on debrided wound. Will increase morphine. 10/28: No acute event overnight. Patient was re evaluated by surgery this morning and had wound vac placement. Patient complains of more pain during placement but on encounter, she is not in acute distress but does complain it hurt more with the wound vac. No fever or chills. 10/29/2018-no acute events in last 24 hours. Surgical team is following the patient. Patient has a necrotizing fasciitis status post incision and drainage and debridement on 10/26/2018. Patient has a wound VAC. Presently on IV clindamycin and IV vancomycin. Patient is afebrile. Cultures from the right shoulder abscess came back positive for MRSA. T-max is 98.5 blood pressure is 152/72. Presently receiving methadone 130 mg and morphine 3 mg IV every 4 as needed she is also receiving Toradol IV every 6 as needed patient is requesting to increase the frequency of Toradol to every 4 as needed. 10/30/2018-no acute events in the last 24 hours. Patient is afebrile. Patient is on contact isolation. Status post debridement, incision and drainage for necrotizing fasciitis on the back of the right shoulder. She has a wound VAC. Wound VAC changed this morning. Presently on IV clindamycin and IV vancomycin as per ID recommendations plan to discontinue IV vancomycin from today. Patient is comfortable in the bed denies any pain at this point. Reason For Visit: CELLULITIS Physical Exam Vital Signs: Temp Pulse Resp BP Pulse Ox 98.3 F 76 18 123/60 100 10/30/18 08:00 10/30/18 08:00 10/30/18 08:00 10/30/18 08:00 10/30/18 08:00 Intake & Output 10/29/18 10/30/18 10/31/18 06:59 06:59 06:59 Intake Total 3400 1725 Balance 3400 1725 Weight 104.9 kg 104.6 kg General appearance: PRESENT: no acute distress, obese Head exam: PRESENT: atraumatic Eye exam: PRESENT: PERRLA Mouth exam: PRESENT: moist, tongue midline Neck exam: ABSENT: carotid bruit, JVD, lymphadenopathy, thyromegaly Respiratory exam: PRESENT: clear to auscultation rio. ABSENT: rales, rhonchi, wheezes Cardiovascular exam: PRESENT: RRR. ABSENT: diastolic murmur, rubs, systolic murmur GI/Abdominal exam: PRESENT: normal bowel sounds, soft. ABSENT: distended, guarding, mass, organolmegaly, rebound, tenderness Extremities exam: PRESENT: full ROM. ABSENT: calf tenderness, clubbing, pedal edema Musculoskeletal exam: PRESENT: other - Patient has a wound VAC behind the right shoulder. Serosanguineous drainage present. Neurological exam: PRESENT: alert, awake, oriented to person, oriented to place, oriented to time, oriented to situation, CN II-XII grossly intact. ABSENT: motor sensory deficit Psychiatric exam: PRESENT: appropriate affect, normal mood. ABSENT: homicidal ideation, suicidal ideation Results Laboratory Results: 10/30/18 04:40 10/30/18 04:40 10/29/18 10/29/18 10/30/18 11:50 11:50 04:40 WBC 8.6 9.3 RBC 4.06 4.06 Hgb 12.3 12.0 Hct 35.6 L 35.5 L MCV 88 88 MCH 30.2 29.6 MCHC 34.5 33.8 RDW 14.3 H 13.9 Plt Count 317 334 Seg Neutrophils % 55.3 51.5 Lymphocytes % 31.8 33.3 Monocytes % 8.8 10.0 Eosinophils % 3.7 3.7 Basophils % 0.4 1.5 Absolute Neutrophils 4.7 4.8 Absolute Lymphocytes 2.7 3.1 Absolute Monocytes 0.7 0.9 Absolute Eosinophils 0.3 0.3 Absolute Basophils 0.0 0.1 Sodium 139.6 Potassium 4.3 Chloride 103 Carbon Dioxide 31 H Anion Gap 6 BUN 9 Creatinine 0.66 Est GFR ( Amer) > 60 Est GFR (Non-Af Amer) > 60 Glucose 91 Calcium 9.2 Magnesium 2.0 Total Bilirubin 0.2 AST 17 ALT 38 Alkaline Phosphatase 80 Total Protein 6.1 L Albumin 3.1 L 10/30/18 04:40 WBC RBC Hgb Hct MCV MCH MCHC RDW Plt Count Seg Neutrophils % Lymphocytes % Monocytes % Eosinophils % Basophils % Absolute Neutrophils Absolute Lymphocytes Absolute Monocytes Absolute Eosinophils Absolute Basophils Sodium 136.5 L Potassium 4.6 Chloride 104 Carbon Dioxide 27 Anion Gap 6 BUN 15 Creatinine 0.60 Est GFR ( Amer) > 60 Est GFR (Non-Af Amer) > 60 Glucose 113 H Calcium 8.9 Magnesium 2.0 Total Bilirubin 0.5 AST 24 ALT 26 Alkaline Phosphatase 80 Total Protein 6.2 L Albumin 3.1 L 10/24/18 17:24 Blood Blood Culture - Final NO GROWTH IN 5 DAYS 10/24/18 14:10 Blood Blood Culture - Final NO GROWTH IN 5 DAYS Impressions: Upper Extremity CT 10/24/18 15:23 IMPRESSION: No evidence of abscess or osteomyelitis. Head CT 10/24/18 15:25 IMPRESSION: NORMAL BRAIN CT WITHOUT CONTRAST. EVIDENCE OF ACUTE STROKE: NO. Assessment and Plan - Diagnosis (1) Necrotizing fasciitis Is this a current diagnosis for this admission?: Yes Plan: 10/27: Patient was deemed to have necrotizing fasciitis. She underwent incision, drainage and debridement last night by surgery. She complains of pain this m orning. Noted soaked packs on debrided wound. Will increase morphine to 3 mg q4h prn. Continue IV antibiotics for now. 10/28: Patient was re evaluated by surgery this morning and had wound vac placeme nt. Patient complains of more pain during placement but on encounter, she is not in acute distress but does complain it hurt more with the wound vac. 10/29/2018-patient has a necrotizing fasciitis posterior aspect of the right shoulder status post incision, drainage, debridement. Patient has a wound VAC. Draining well. Presently on morphine 3 mg every 4 as needed, methadone 130 mg daily, Toradol IV every 6 as needed. Plan to increase the frequency of Toradol to every 4 as needed. On IV clindamycin and vancomycin plan is to continue the present management. The wound cultures from the right shoulder came back positive for MRSA. 10/30/2018-pains today. Presently on IV clindamycin and IV vancomycin as per ID recommendations IV vancomycin is discontinued. Plan to transition IV clindamyc in to p.o. clindamycin before discharge. Patient is afebrile. Wound culture showing MRSA. She is on contact isolation. Presently on methadone 130 mg daily, Toradol IV every 4 as needed, morphine 3 mg every 4 hours as needed. Plan is to continue the present management. (2) Cellulitis of back Is this a current diagnosis for this admission?: Yes Plan: Lesions have been demarcated. The cellulitis is quite extensive extending from the right upper back to the shoulder area. CT scan does not show any abscess. She does have history of MRSA cellulitis. 10/25: She still has pain and tenderness on the affected areas. There is no significant improvement this morning compared to yesterday but lesions have not gone beyond the demarcations. Continue vancomcyin. Blood culture report pending. Wound culture is growing gram positive cocci. 10/26: Lesions appear worse today. The erythema has gone beyond the demarcations despite being on IV antibiotics. There is also a new area of erythema that has developed adjacent to the previous cellulitic lesions. Wound culture grew MRSA. Will consult surgery. Continue IV antibiotics. 10/28: As per number 1. 10/29/2018-patient has a cellulitis of the back presently on IV clindamycin and I V vancomycin. Surgery is following the patient. The erythema and redness is stabilized. Plan is to continue the present management. 2018-patient has a cellulitis of the back which was resolving. Presently on IV clindamycin and IV vancomycin erythema redness was significantly improved in my opinion plan is to continue IV Clinda today. (3) Opiate dependence Is this a current diagnosis for this admission?: Yes Plan: Patient reports she had addiction problems with opiates in the past and is currently on methadone treatment. On methadone. 10/29/2018-patient has a history of opioid dependency she is on methadone at home . Plan is to continue methadone while she was in the hospital. (4) Morbid obesity Is this a current diagnosis for this admission?: No Plan: For 2018-patient's BMI is more than 36. Diet exercise weight loss lifestyle modifications are discussed with the patient. Dietary consult was requested. - Time Time Spent with patient: 15-24 minutes Medications reviewed and adjusted accordingly: Yes Anticipated discharge: Home, Home with Homehealth
[2018-10-30] MEDS: FONDAPARINUX SODIUM INJ 2.5 MG/0.5 ML DISP.SYRIN SUBCUT SCH (10:25)
[2018-10-30] MEDS: METHADONE HCL 10 MG TABLET PO SCH (10:37)
[2018-10-30] MEDS: NICOTINE 21 MG/24 HR PATCH.TD24 TD PRN (10:37)
--- NOTE | 2018-10-30 11:54 | PDOC PROGRESS REPORT ---
Subjective Progress Note for:: 10/30/18 Reason For Visit: CELLULITIS Physical Exam Vital Signs: Temp Pulse Resp BP Pulse Ox 98.3 F 76 18 123/60 100 10/30/18 08:00 10/30/18 08:00 10/30/18 08:00 10/30/18 08:00 10/30/18 08:00 Intake & Output 10/29/18 10/30/18 10/31/18 06:59 06:59 06:59 Intake Total 3400 1725 250 Balance 3400 1725 250 Weight 104.9 kg 104.6 kg Exam: Right back wound looks dry and clean Results Laboratory Results: 10/30/18 04:40 10/30/18 04:40 10/29/18 10/29/18 10/30/18 11:50 11:50 04:40 WBC 8.6 9.3 RBC 4.06 4.06 Hgb 12.3 12.0 Hct 35.6 L 35.5 L MCV 88 88 MCH 30.2 29.6 MCHC 34.5 33.8 RDW 14.3 H 13.9 Plt Count 317 334 Seg Neutrophils % 55.3 51.5 Lymphocytes % 31.8 33.3 Monocytes % 8.8 10.0 Eosinophils % 3.7 3.7 Basophils % 0.4 1.5 Absolute Neutrophils 4.7 4.8 Absolute Lymphocytes 2.7 3.1 Absolute Monocytes 0.7 0.9 Absolute Eosinophils 0.3 0.3 Absolute Basophils 0.0 0.1 Sodium 139.6 Potassium 4.3 Chloride 103 Carbon Dioxide 31 H Anion Gap 6 BUN 9 Creatinine 0.66 Est GFR ( Amer) > 60 Est GFR (Non-Af Amer) > 60 Glucose 91 Calcium 9.2 Magnesium 2.0 Total Bilirubin 0.2 AST 17 ALT 38 Alkaline Phosphatase 80 Total Protein 6.1 L Albumin 3.1 L 10/30/18 04:40 WBC RBC Hgb Hct MCV MCH MCHC RDW Plt Count Seg Neutrophils % Lymphocytes % Monocytes % Eosinophils % Basophils % Absolute Neutrophils Absolute Lymphocytes Absolute Monocytes Absolute Eosinophils Absolute Basophils Sodium 136.5 L Potassium 4.6 Chloride 104 Carbon Dioxide 27 Anion Gap 6 BUN 15 Creatinine 0.60 Est GFR ( Amer) > 60 Est GFR (Non-Af Amer) > 60 Glucose 113 H Calcium 8.9 Magnesium 2.0 Total Bilirubin 0.5 AST 24 ALT 26 Alkaline Phosphatase 80 Total Protein 6.2 L Albumin 3.1 L 10/24/18 17:24 Blood Blood Culture - Final NO GROWTH IN 5 DAYS 10/24/18 14:10 Blood Blood Culture - Final NO GROWTH IN 5 DAYS Impressions: Upper Extremity CT 10/24/18 15:23 IMPRESSION: No evidence of abscess or osteomyelitis. Head CT 10/24/18 15:25 IMPRESSION: NORMAL BRAIN CT WITHOUT CONTRAST. EVIDENCE OF ACUTE STROKE: NO. Assessment & Plan - Time Time Spent with patient: 15-24 minutes - Plan Summary Plan Summary: Continue wound vac and IV antibiotics Arrange home Wound vac Eventual closure of wound with rotational Flap by Dr Coburn in 1-2 weeks
[2018-10-30] MEDS ORDERED: KETAMINE HCL INJ 500 MG/10 ML VIAL ONE (21:46)
[2018-10-30] MEDS ORDERED: PROPOFOL INJ 200 MG/20 ML VIAL IV ONE (21:48)
[2018-10-30] MEDS ORDERED: EPHEDRINE SULFATE INJ 50 MG/1 ML AMPULE ONE (21:48)
[2018-10-30] MEDS ORDERED: FENTANYL CITRATE INJ/PF 100 MCG/2 ML AMPUL ONE (21:48)
[2018-10-30] MEDS ORDERED: MIDAZOLAM 2 MG/2 ML INJ ONE (21:48)
[2018-10-30] MEDS ORDERED: FENTANYL CITRATE INJ/PF 100 MCG/2 ML AMPUL IV PRN ×3 (22:36)
[2018-10-30] MEDS ORDERED: PROMETHAZINE HCL INJ 25 MG/1 ML VIAL IV PRN (22:36)
[2018-10-30] MEDS ORDERED: DIPHENHYDRAMINE HCL 50 MG/ML VIAL IV PRN (22:36)
[2018-10-31 00:19] LABS: HEMATOCRIT 31.3 % (36.0-47.0); HEMOGLOBIN 10.6 g/dL (12.0-15.5); MEAN CORPUSCULAR HEMOGLOBIN 29.8 pg (27.0-33.4); MEAN CORPUSCULAR HGB CONC 33.8 g/dL (32.0-36.0); MEAN CORPUSCULAR VOLUME 88 fl (80-97); PLATELET COUNT 245 10^3/uL (150-450); RED BLOOD COUNT 3.54 10^6/uL (3.72-5.28); RED CELL DISTRIBUTION WIDTH 14.1 % (11.5-14.0); WHITE BLOOD COUNT 14.2 10^3/uL (4.0-10.5)
[2018-10-31 00:38] LABS: ABSOLUTE LYMPHOCYTES# (MANUAL) 3.7 10^3/uL (0.5-4.7); ABSOLUTE MONOCYTES # (MANUAL) 0.6 10^3/uL (0.1-1.4); ABSOLUTE NEUTROPHILS# (MANUAL) 9.2 10^3/uL (1.7-8.2); BAND NEUTROPHILS % (MANUAL) 1 % (3-5); BASOPHILS % (MANUAL) 0 % (0-2); EOSINOPHILS % (MANUAL) 5 % (0-6); LYMPHOCYTES % (MANUAL) 25 % (13-45); MONOCYTES % (MANUAL) 4 % (3-13); SEGMENTED NEUTROPHILS % (MAN) 64 % (42-78); TOTAL CELLS COUNTED 100
[2018-10-31 00:46] LABS: ANISOCYTOSIS SLIGHT; PLATELET COMMENT ADEQUATE
[2018-10-31] MEDS: MORPHINE SULFATE 10 MG/ML INJ IV PRN ×5 (01:15→23:06)
[2018-10-31] MEDS: NORMAL SALINE 1000 ML 1,000 ML IV PRN (01:15)
[2018-10-31] MEDS: CLINDAMYCIN 600 MG/D5W RTU 600 MG/50 ML RTUPB IV SCH ×3 (01:16→17:07)
[2018-10-31] MEDS: KETOROLAC TROMETHAMINE INJ/PF 30 MG/1 ML SDV IV PRN ×4 (01:42→17:06)
--- NOTE | 2018-10-31 03:19 | OPERATIVE REPORT E ---
Operative Report NAME: AUSTEN PRESTON : 1975 AGE: 43Y DATE OF SURGERY: 10/30/2018 ROOM: 414 PREOPERATIVE DIAGNOSIS: BLEEDING FROM RIGHT SHOULDER WOUND. POSTOPERATIVE DIAGNOSES: 1. BLEEDING FROM RIGHT SHOULDER WOUND. 2. HYPOTENSION. OPERATION: Evacuation of hematoma and control of bleeders from the right shoulder wound site. SURGEON: LISA VANN M.D. ANESTHESIA: Local, MAC. INDICATION: This is a 43-year-old female who had an abscess excised from the right shoulder about 5 days ago. About 3 days ago wound VAC was placed into the right shoulder debridement area. This area is relatively large, about 18 cm long x 9 cm wide by about 3 cm deep. Today noted to be bleeding through the wound VAC, and the wound VAC was disconnected, but the patient continued to bleed. She was taken to the OR and noted to have a blood pressure of about 71/50. The patient was awake, but lightheaded. She was given IV fluids and Santosh-Synephrine by Anesthesia and taken right away to the OR. DESCRIPTION OF PROCEDURE: The patient was placed in a left lateral decubitus position on the stretcher. Some of the clot was removed manually and the bleeder noted to be small arterial pumper, was then suture ligated with 3-0 Vicryl. This stopped most of the bleeding. Following this, the wound was then prepped and draped in the usual sterile fashion. The rest of the clot was removed and the wound itself was then pulse lavaged. Following this, there was still an area that was oozing close to the artery that was suture ligated. This area was then suture ligated twice with a 4-0 Prolene. That stopped the bleeding nicely. No other bleeding noted along the wound itself. Following this, the whole cavity of the wound was then packed with diluted Betadine-soaked Kerlix. A 4 x 4 and ABD pad were placed over the Kerlix. The patient tolerated the procedure well. The patient was typed and crossed while in the OR. However, after the procedure the patient's vital signs remained stable, with blood pressure about 150 and a heart rate of about 80. The patient did have ketamine as part of the sedation. The patient tolerated the procedure quite well and brought back to the recovery room in satisfactory condition. The H and H was sent from the OR. If it is 8 or lower, then the patient will need transfusion. DICTATING PHYSICIAN: LISA VANN M.D. [id number] PHY#: [id number] ID: [id number] JOB#: [id number] ACCT: [id number] cc:LISA VANN M.D. >
[2018-10-31] MEDS: ENOXAPARIN SODIUM INJ 40 MG/0.4 ML DISP.SYRIN SUBCUT SCH (08:06)
[2018-10-31] MEDS: NICOTINE 21 MG/24 HR PATCH.TD24 TD PRN (08:10)
--- NOTE | 2018-10-31 09:50 | PDOC PROGRESS REPORT ---
Subjective Progress Note for:: 10/31/18 Subjective:: 43 year old female with a PMH of perforated diverticulitis S/P colectomy and colostomy, history of opiate abuse now on methadone therapy and prior history of MRSA cellulitis who presented with a draining wound on the right upper back/shoulder area. Patient reports she had a pimple-like lesion on the mentioned area 3 days ago and this popped out spontaneously and developed into an open wound with some purulent drainage. She developed significant erythema and tenderness noticeably extending from the right mid back to the right shoulder area. She also reported of associated fever and chills. 10/25: She still has pain and tenderness on the affected areas. There is no significant improvement this morning compared to yesterday but lesions have not gone beyond the demarcations. 10/26: Lesions appear worse today. The erythema has gone beyond the demarcations despite being on IV antibiotics. There is also a new area of erythema that has developed adjacent to the previous cellulitic lesions. Wound culture grew MRSA. Will consult surgery. 10/27: Patient was deemed to have necrotizing fasciitis. She underwent incision, drainage and debridement last night by surgery. She complains of pain this morning. Noted soaked packs on debrided wound. Will increase morphine. 10/28: No acute event overnight. Patient was re evaluated by surgery this morning and had wound vac placement. Patient complains of more pain during placement but on encounter, she is not in acute distress but does complain it hurt more with the wound vac. No fever or chills. 10/29/2018-no acute events in last 24 hours. Surgical team is following the patient. Patient has a necrotizing fasciitis status post incision and drainage and debridement on 10/26/2018. Patient has a wound VAC. Presently on IV clindamycin and IV vancomycin. Patient is afebrile. Cultures from the right shoulder abscess came back positive for MRSA. T-max is 98.5 blood pressure is 152/72. Presently receiving methadone 130 mg and morphine 3 mg IV every 4 as needed she is also receiving Toradol IV every 6 as needed patient is requesting to increase the frequency of Toradol to every 4 as needed. 10/30/2018-no acute events in the last 24 hours. Patient is afebrile. Patient is on contact isolation. Status post debridement, incision and drainage for necrotizing fasciitis on the back of the right shoulder. She has a wound VAC. Wound VAC changed this morning. Presently on IV clindamycin and IV vancomycin as per ID recommendations plan to discontinue IV vancomycin from today. Patient is comfortable in the bed denies any pain at this point. 10/31/2018-patient had an arterial bleed last night from the wound. Went to the OR for ligation. Hemoglobin R is 10.6. No plans to give any blood transfusion. Patient is without wound VAC this morning. The wound on the right shoulder is covered with dressing. Waiting for surgical evaluation this morning. Patient states she is doing much better. If possible she wants to go home either today or tomorrow. As per the patient pain is better controlled. T-max is 98.4. Reason For Visit: CELLULITIS Physical Exam Vital Signs: Temp Pulse Resp BP Pulse Ox 98.4 F 77 18 113/50 L 96 10/31/18 03:30 10/31/18 03:30 10/31/18 03:30 10/31/18 03:30 10/31/18 03:30 Intake & Output 10/30/18 10/31/18 11/01/18 06:59 06:59 06:59 Intake Total 2725 4363 Output Total 460 Balance 2725 3903 Weight 104.6 kg 104.6 kg General appearance: PRESENT: no acute distress, obese Head exam: PRESENT: atraumatic Eye exam: PRESENT: PERRLA Mouth exam: PRESENT: moist, tongue midline Neck exam: ABSENT: carotid bruit, JVD, lymphadenopathy, thyromegaly Respiratory exam: PRESENT: clear to auscultation rio. ABSENT: rales, rhonchi, wheezes Cardiovascular exam: PRESENT: tachycardia GI/Abdominal exam: PRESENT: normal bowel sounds, soft. ABSENT: distended, guarding, mass, organolmegaly, rebound, tenderness Extremities exam: PRESENT: other - Wound on the back of the right shoulder is covered with a dressing. Off the wound VAC. Slight soiling of the dressing on the hospital gown. Neurological exam: PRESENT: alert, awake, oriented to person, oriented to place, oriented to time, oriented to situation, CN II-XII grossly intact. ABSENT: motor sensory deficit Results Laboratory Results: 10/30/18 22:25 10/30/18 04:40 04/17/19 04/17/19 22:25 22:35 WBC 14.2 H RBC 3.54 L Hgb 10.6 L Hct 31.3 L MCV 88 MCH 29.8 MCHC 33.8 RDW 14.1 H Plt Count 245 Seg Neutrophils % Not Reportable Lymphocytes % Not Reportable Monocytes % Not Reportable Eosinophils % Not Reportable Basophils % Not Reportable Absolute Neutrophils Not Reportable Absolute Lymphocytes Not Reportable Absolute Monocytes Not Reportable Absolute Eosinophils Not Reportable Absolute Basophils Not Reportable Blood Type O POSITIVE Antibody Screen NEGATIVE Impressions: Upper Extremity CT 10/24/18 15:23 IMPRESSION: No evidence of abscess or osteomyelitis. Head CT 10/24/18 15:25 IMPRESSION: NORMAL BRAIN CT WITHOUT CONTRAST. EVIDENCE OF ACUTE STROKE: NO. Assessment and Plan - Diagnosis (1) Necrotizing fasciitis Is this a current diagnosis for this admission?: Yes Plan: 10/27: Patient was deemed to have necrotizing fasciitis. She underwent incision, drainage and debridement last night by surgery. She complains of pain this morning. Noted soaked packs on debrided wound. Will increase morphine to 3 mg q4h prn. Continue IV antibiotics for now. 10/28: Patient was re evaluated by surgery this morning and had wound vac placement. Patient complains of more pain during placement but on encounter, she is not in acute distress but does complain it hurt more with the wound vac. 10/29/2018-patient has a necrotizing fasciitis posterior aspect of the right shoulder status post incision, drainage, debridement. Patient has a wound VAC. Draining well. Presently on morphine 3 mg every 4 as needed, methadone 130 mg daily, Toradol IV every 6 as needed. Plan to increase the frequency of Toradol to every 4 as needed. On IV clindamycin and vancomycin plan is to continue the present management. The wound cultures from the right shoulder came back positive for MRSA. 10/30/2018- no c/o of pains today. Presently on IV clindamycin and IV vancomycin as per ID recommendations IV vancomycin is discontinued. Plan to transition IV clindamycin to p.o. clindamycin before discharge. Patient is afebrile. Wound culture showing MRSA. She is on contact isolation. Presently on methadone 130 mg daily, Toradol IV every 4 as needed, morphine 3 mg every 4 hours as needed. Plan is to continue the present management. 10/31/2018-no complaints of pain today. Patient is presently on IV clindamycin. Wound culture shows MRSA. Plan to transition the antibiotic to p.o. clindamycin from today. As for the patient pain is been controlled. There is arterial bleed last night it was taken care of by the surgical team. Hemoglobin stable around 10.6. Presently off the wound VAC waiting for the surgical follow-up today. (2) Cellulitis of back Is this a current diagnosis for this admission?: Yes Plan: Lesions have been demarcated. The cellulitis is quite extensive extending from the right upper back to the shoulder area. CT scan does not show any abscess. She does have history of MRSA cellulitis. 10/25: She still has pain and tenderness on the affected areas. There is no significant improvement this morning compared to yesterday but lesions have not gone beyond the demarcations. Continue vancomcyin. Blood culture report pending. Wound culture is growing gram positive cocci. 10/26: Lesions appear worse today. The erythema has gone beyond the demarcations despite being on IV antibiotics. There is also a new area of erythema that has developed adjacent to the previous cellulitic lesions. Wound culture grew MRSA. Will consult surgery. Continue IV antibiotics. 10/28: As per number 1. 10/29/2018-patient has a cellulitis of the back presently on IV clindamycin and IV vancomycin. Surgery is following the patient. The erythema and redness is stabilized. Plan is to continue the present management. 10/30/2018-patient has a cellulitis of the back which was resolving. Presently on IV clindamycin and IV vancomycin erythema redness was significantly improved in my opinion plan is to continue IV Clinda today. 10/31/2018-patient has a cellulitis of the back which was resolving. Presently on IV clindamycin. No complaints from the patient. (3) Opiate dependence Is this a current diagnosis for this admission?: Yes Plan: Patient reports she had addiction problems with opiates in the past and is currently on methadone treatment. On methadone. 10/29/2018-patient has a history of opioid dependency she is on methadone at home. Plan is to continue methadone while she was in the hospital. 10/31/2018 patient is presently on methadone and morphine pain is relatively well controlled. Plan is to continue the present management. (4) Morbid obesity Is this a current diagnosis for this admission?: No - Time Time Spent with patient: 15-24 minutes Medications reviewed and adjusted accordingly: Yes Anticipated discharge: Home, Home with Homehealth
[2018-10-31] MEDS: METHADONE HCL 10 MG TABLET PO SCH (10:23)
--- NOTE | 2018-10-31 11:29 | RADIOLOGY REPORT (SQ) ---
EXAM DESCRIPTION: CHEST 2 VIEWS COMPLETED DATE/TIME: 10/31/2018 11:12 am REASON FOR STUDY: sepsis COMPARISON: None. EXAM PARAMETERS: NUMBER OF VIEWS: two views TECHNIQUE: Digital Frontal and Lateral radiographic views of the chest acquired. RADIATION DOSE: NA LIMITATIONS: none FINDINGS: LUNGS AND PLEURA: No opacities, masses or pneumothorax. No pleural effusion. MEDIASTINUM AND HILAR STRUCTURES: No masses or contour abnormalities. HEART AND VASCULAR STRUCTURES: Heart normal size. No evidence for failure. BONES: No acute findings. HARDWARE: None in the chest. OTHER: No other significant finding. IMPRESSION: NO ACUTE RADIOGRAPHIC FINDING IN THE CHEST. TECHNICAL DOCUMENTATION: JOB ID: [id number] [employer]- All Rights Reserved Reading location - IP/workstation name: [email or web address]
[2018-10-31] MEDS: DIPHENHYDRAMINE HCL 50 MG/ML VIAL IV PRN ×3 (11:35→23:06)
[2018-10-31 13:21] LABS: ABSOLUTE EOSINOPHILS # (AUTO) 0.3 10^3/uL (0.0-0.6); ABSOLUTE LYMPHOCYTES (AUTO) 3.3 10^3/uL (0.5-4.7); ABSOLUTE MONOCYTES (AUTO) 0.9 10^3/uL (0.1-1.4); ABSOLUTE NEUT (AUTO) 9.2 10^3/uL (1.7-8.2); BASOPHILS % (AUTO) 0.3 % (0-2); EOSINOPHILS % (AUTO) 2.4 % (0-6); HEMATOCRIT 28.6 % (36.0-47.0); HEMOGLOBIN 9.6 g/dL (12.0-15.5); MEAN CORPUSCULAR HGB CONC 33.6 g/dL (32.0-36.0); MEAN CORPUSCULAR VOLUME 89 fl (80-97); MONOCYTES % (AUTO) 6.6 % (3-13); PLATELET COUNT 313 10^3/uL (150-450); RED BLOOD COUNT 3.21 10^6/uL (3.72-5.28); RED CELL DISTRIBUTION WIDTH 14.4 % (11.5-14.0); SEGMENTED NEUTROPHILS % (AUTO) 66.7 % (42-78); TOTAL CELLS COUNTED % (AUTO) 100 %; WHITE BLOOD COUNT 13.8 10^3/uL (4.0-10.5)
[2018-10-31 13:41] LABS: ALANINE AMINOTRANSFERASE 24 U/L (9-52); ALBUMIN 2.9 g/dL (3.5-5.0); ALKALINE PHOSPHATASE 72 U/L (38-126); ANION GAP 6 (5-19); ASPARTATE AMINO TRANSFERASE 16 U/L (14-36); BILIRUBIN,DIRECT 0.2 mg/dL (0.0-0.4); BILIRUBIN,TOTAL 0.2 mg/dL (0.2-1.3); BLOOD UREA NITROGEN 12 mg/dL (7-20); CALCIUM 8.6 mg/dL (8.4-10.2); CARBON DIOXIDE 27 mmol/L (22-30); CHLORIDE 105 mmol/L (98-107); GLUCOSE 87 mg/dL (75-110); POTASSIUM 4.7 mmol/L (3.6-5.0); SODIUM 138.2 mmol/L (137-145); TOTAL PROTEIN 5.7 g/dL (6.3-8.2)
[2018-11-01] MEDS: CLINDAMYCIN 600 MG/D5W RTU 600 MG/50 ML RTUPB IV SCH ×3 (01:33→17:23)
[2018-11-01] MEDS: MORPHINE SULFATE 10 MG/ML INJ IV PRN ×5 (03:16→23:31)
[2018-11-01] MEDS: IBUPROFEN 600 MG TABLET PO PRN ×4 (03:16→23:31)
[2018-11-01 06:46] LABS: HEMOGLOBIN 8.6 g/dL (12.0-15.5); MEAN CORPUSCULAR HGB CONC 34.3 g/dL (32.0-36.0); MEAN CORPUSCULAR VOLUME 87 fl (80-97); PLATELET COUNT 281 10^3/uL (150-450); RED BLOOD COUNT 2.86 10^6/uL (3.72-5.28); RED CELL DISTRIBUTION WIDTH 14.5 % (11.5-14.0); WHITE BLOOD COUNT 9.7 10^3/uL (4.0-10.5)
[2018-11-01 07:05] LABS: ALANINE AMINOTRANSFERASE 27 U/L (9-52); ALBUMIN 2.6 g/dL (3.5-5.0); ALKALINE PHOSPHATASE 74 U/L (38-126); ANION GAP 5 (5-19); ASPARTATE AMINO TRANSFERASE 14 U/L (14-36); BILIRUBIN,DIRECT 0.1 mg/dL (0.0-0.4); BILIRUBIN,TOTAL 0.1 mg/dL (0.2-1.3); BLOOD UREA NITROGEN 14 mg/dL (7-20); CALCIUM 8.5 mg/dL (8.4-10.2); CARBON DIOXIDE 25 mmol/L (22-30); CHLORIDE 109 mmol/L (98-107); GLUCOSE 87 mg/dL (75-110); POTASSIUM 4.2 mmol/L (3.6-5.0); SODIUM 138.7 mmol/L (137-145); TOTAL PROTEIN 5.1 g/dL (6.3-8.2)
[2018-11-01] MEDS: DIPHENHYDRAMINE HCL 50 MG/ML VIAL IV PRN ×4 (07:46→23:31)
[2018-11-01 07:51] LABS: ABSOLUTE LYMPHOCYTES# (MANUAL) 2.4 10^3/uL (0.5-4.7); ABSOLUTE MONOCYTES # (MANUAL) 0.6 10^3/uL (0.1-1.4); ABSOLUTE NEUTROPHILS# (MANUAL) 6.4 10^3/uL (1.7-8.2); BAND NEUTROPHILS % (MANUAL) 1 % (3-5); BASOPHILS % (MANUAL) 0 % (0-2); EOSINOPHILS % (MANUAL) 3 % (0-6); LYMPHOCYTES % (MANUAL) 24 % (13-45); METAMYELOCYTES % (MANUAL) 2 % (0); MONOCYTES % (MANUAL) 6 % (3-13); SEGMENTED NEUTROPHILS % (MAN) 63 % (42-78); TOTAL CELLS COUNTED 100
[2018-11-01] MEDS: ENOXAPARIN SODIUM INJ 40 MG/0.4 ML DISP.SYRIN SUBCUT SCH (07:51)
[2018-11-01 07:52] LABS: ANISOCYTOSIS SLIGHT; PLATELET COMMENT ADEQUATE; POLYCHROMASIA 1+
[2018-11-01] MEDS: NICOTINE 21 MG/24 HR PATCH.TD24 TD PRN (08:11)
[2018-11-01] MEDS: METHADONE HCL 10 MG TABLET PO SCH (10:00)
--- NOTE | 2018-11-01 10:12 | PDOC PROGRESS REPORT ---
Subjective Progress Note for:: 11/01/18 Subjective:: 43 year old female with a PMH of perforated diverticulitis S/P colectomy and colostomy, history of opiate abuse now on methadone therapy and prior history of MRSA cellulitis who presented with a draining wound on the right upper back/shoulder area. Patient reports she had a pimple-like lesion on the mentioned area 3 days ago and this popped out spontaneously and developed into an open wound with some purulent drainage. She developed significant erythema and tenderness noticeably extending from the right mid back to the right shoulder area. She also reported of associated fever and chills. 10/25: She still has pain and tenderness on the affected areas. There is no significant improvement this morning compared to yesterday but lesions have not gone beyond the demarcations. 10/26: Lesions appear worse today. The erythema has gone beyond the demarcations despite being on IV antibiotics. There is also a new area of erythema that has developed adjacent to the previous cellulitic lesions. Wound culture grew MRSA. Will consult surgery. 10/27: Patient was deemed to have necrotizing fasciitis. She underwent incision, drainage and debridement last night by surgery. She complains of pain this morning. Noted soaked packs on debrided wound. Will increase morphine. 10/28: No acute event overnight. Patient was re evaluated by surgery this morning and had wound vac placement. Patient complains of more pain during placement but on encounter, she is not in acute distress but does complain it hurt more with the wound vac. No fever or chills. 10/29/2018-no acute events in last 24 hours. Surgical team is following the patient. Patient has a necrotizing fasciitis status post incision and drainage and debridement on 10/26/2018. Patient has a wound VAC. Presently on IV clindamycin and IV vancomycin. Patient is afebrile. Cultures from the right shoulder abscess came back positive for MRSA. T-max is 98.5 blood pressure is 152/72. Presently receiving methadone 130 mg and morphine 3 mg IV every 4 as needed she is also receiving Toradol IV every 6 as needed patient is requesting to increase the frequency of Toradol to every 4 as needed. 10/30/2018-no acute events in the last 24 hours. Patient is afebrile. Patient is on contact isolation. Status post debridement, incision and drainage for necrotizing fasciitis on the back of the right shoulder. She has a wound VAC. Wound VAC changed this morning. Presently on IV clindamycin and IV vancomycin as per ID recommendations plan to discontinue IV vancomycin from today. Patient is comfortable in the bed denies any pain at this point. 10/31/2018-patient had an arterial bleed last night from the wound. Went to the OR for ligation. Hemoglobin R is 10.6. No plans to give any blood transfusion. Patient is without wound VAC this morning. The wound on the right shoulder is covered with dressing. Waiting for surgical evaluation this morning. Patient states she is doing much better. If possible she wants to go home either today or tomorrow. As per the patient pain is better controlled. T-max is 98.4. 11/01/2018-no acute events in the last 24 hours. Patient is afebrile. T-max is 98.7. Hemoglobin dropped to 8.6 today. Plan to check hemoglobin again tomorrow if necessary difficult to transfer the patient. No complaints from the patient. Presently on IV clindamycin plan is to change to p.o. clindamycin. It is comfortably in the bed denies any complaints. Waiting for the wound VAC arrangements for the patient to be discharged. Reason For Visit: CELLULITIS Physical Exam Vital Signs: Temp Pulse Resp BP Pulse Ox 98.7 F 84 16 126/58 H 97 11/01/18 08:27 11/01/18 08:27 11/01/18 08:27 11/01/18 08:27 11/01/18 08:27 Intake & Output 10/31/18 11/01/18 11/02/18 06:59 06:59 06:59 Intake Total 4363 1923 Output Total 460 Balance 3903 1923 Weight 104.6 kg 104.4 kg General appearance: PRESENT: no acute distress, obese Head exam: PRESENT: atraumatic Eye exam: PRESENT: PERRLA Mouth exam: PRESENT: moist, tongue midline Neck exam: ABSENT: carotid bruit, JVD, lymphadenopathy, thyromegaly Respiratory exam: PRESENT: clear to auscultation rio. ABSENT: rales, rhonchi, wheezes Cardiovascular exam: PRESENT: RRR. ABSENT: diastolic murmur, rubs, systolic murmur GI/Abdominal exam: PRESENT: normal bowel sounds, soft. ABSENT: distended, guarding, mass, organolmegaly, rebound, tenderness Extremities exam: PRESENT: full ROM, other - Wound VAC on the posterior aspect of the right shoulder.. ABSENT: calf tenderness, clubbing, pedal edema Neurological exam: PRESENT: alert, awake, oriented to person, oriented to place, oriented to time, oriented to situation, CN II-XII grossly intact. ABSENT: motor sensory deficit Psychiatric exam: PRESENT: appropriate affect, normal mood. ABSENT: homicidal ideation, suicidal ideation Skin exam: PRESENT: dry, intact, warm. ABSENT: cyanosis, rash Results Laboratory Results: 11/01/18 05:35 11/01/18 05:35 10/31/18 10/31/18 11/01/18 12:45 12:45 05:35 WBC 13.8 H 9.7 RBC 3.21 L 2.86 L Hgb 9.6 L 8.6 L Hct 28.6 L 25.0 L MCV 89 87 MCH 30.0 30.0 MCHC 33.6 34.3 RDW 14.4 H 14.5 H Plt Count 313 281 Seg Neutrophils % 66.7 Not Reportable Lymphocytes % 24.0 Not Reportable Monocytes % 6.6 Not Reportable Eosinophils % 2.4 Not Reportable Basophils % 0.3 Not Reportable Absolute Neutrophils 9.2 H Not Reportable Absolute Lymphocytes 3.3 Not Reportable Absolute Monocytes 0.9 Not Reportable Absolute Eosinophils 0.3 Not Reportable Absolute Basophils 0.0 Not Reportable Sodium 138.2 Potassium 4.7 Chloride 105 Carbon Dioxide 27 Anion Gap 6 BUN 12 Creatinine 0.61 Est GFR ( Amer) > 60 Est GFR (Non-Af Amer) > 60 Glucose 87 Calcium 8.6 Magnesium 2.0 Total Bilirubin 0.2 AST 16 ALT 24 Alkaline Phosphatase 72 Total Protein 5.7 L Albumin 2.9 L 11/01/18 05:35 WBC RBC Hgb Hct MCV MCH MCHC RDW Plt Count Seg Neutrophils % Lymphocytes % Monocytes % Eosinophils % Basophils % Absolute Neutrophils Absolute Lymphocytes Absolute Monocytes Absolute Eosinophils Absolute Basophils Sodium 138.7 Potassium 4.2 Chloride 109 H Carbon Dioxide 25 Anion Gap 5 BUN 14 Creatinine 0.64 Est GFR ( Amer) > 60 Est GFR (Non-Af Amer) > 60 Glucose 87 Calcium 8.5 Magnesium 2.1 Total Bilirubin 0.1 L AST 14 ALT 27 Alkaline Phosphatase 74 Total Protein 5.1 L Albumin 2.6 L Impressions: Upper Extremity CT 10/24/18 15:23 IMPRESSION: No evidence of abscess or osteomyelitis. Head CT 10/24/18 15:25 IMPRESSION: NORMAL BRAIN CT WITHOUT CONTRAST. EVIDENCE OF ACUTE STROKE: NO. Chest X-Ray 10/31/18 00:00 IMPRESSION: NO ACUTE RADIOGRAPHIC FINDING IN THE CHEST. Assessment and Plan - Diagnosis (1) Necrotizing fasciitis Is this a current diagnosis for this admission?: Yes Plan: 10/27: Patient was deemed to have necrotizing fasciitis. She underwent incision, drainage and debridement last night by surgery. She complains of pain this morning. Noted soaked packs on debrided wound. Will increase morphine to 3 mg q4h prn. Continue IV antibiotics for now. 10/28: Patient was re evaluated by surgery this morning and had wound vac pl acement. Patient complains of more pain during placement but on encounter, she is not in acute distress but does complain it hurt more with the wound vac. 10/29/2018-patient has a necrotizing fasciitis posterior aspect of the right shoulder status post incision, drainage, debridement. Patient has a wound VAC. Draining well. Presently on morphine 3 mg every 4 as needed, methadone 130 mg daily, Toradol IV every 6 as needed. Plan to increase the frequency of Toradol to every 4 as needed. On IV clindamycin and vancomycin plan is to continue the present management. The wound cultures from the right shoulder came back positive for MRSA. 10/30/2018- no c/o of pains today. Presently on IV clindamycin and IV vancomycin as per ID recommendations IV vancomycin is discontinued. Plan to transition IV clindamycin to p.o. clindamycin before discharge. Patient is afebrile. Wound culture showing MRSA. She is on contact isolation. Presently on methadone 130 mg daily, Toradol IV every 4 as needed, morphine 3 mg every 4 hours as needed. Plan is to continue the present management. 10/31/2018-no complaints of pain today. Patient is presently on IV clindamycin. Wound culture shows MRSA. Plan to transition the antibiotic to p.o. clindamycin from today. As for the patient pain is been controlled. There is arterial bleed last night it was taken care of by the surgical team. Hemoglobin stable around 10.6. Presently off the wound VAC waiting for the surgical follow-up today. 11/01/2018-no complaints of pain today. Methadone was read started today. Presently on IV clindamycin. Wound cultures are positive for MRSA. As per ID recommendations plan is to change IV vancomycin to clindamycin today. Hemoglobin is 8.6 to recheck the hemoglobin tomorrow. If necessary we could to transfer the patient again. Wound VAC placed back last night. (2) Cellulitis of back Is this a current diagnosis for this admission?: Yes (3) Opiate dependence Is this a current diagnosis for this admission?: Yes Plan: Patient reports she had addiction problems with opiates in the past and is currently on methadone treatment. On methadone. 10/29/2018-patient has a history of opioid dependency she is on methadone at home. Plan is to continue methadone while she was in the hospital. 10/31/2018 patient is presently on methadone and morphine pain is relatively well controlled. Plan is to continue the present management. 11/01/2018-patient has history of opiate dependency on methadone at home. Plan is to continue the present management. (4) Morbid obesity Is this a current diagnosis for this admission?: No - Time Time Spent with patient: 15-24 minutes Smoking Cessation Education: over 10 minutes Anticipated discharge: Home with Homehealth
--- NOTE | 2018-11-01 21:12 | PDOC PROGRESS REPORT ---
Subjective Progress Note for:: 11/01/18 Reason For Visit: CELLULITIS Physical Exam Vital Signs: Temp Pulse Resp BP Pulse Ox 97.8 F 87 16 115/51 L 98 11/01/18 20:00 11/01/18 20:00 11/01/18 20:00 11/01/18 20:00 11/01/18 20:00 Intake & Output 10/31/18 11/01/18 11/02/18 06:59 06:59 06:59 Intake Total 4363 1923 1360 Output Total 460 25 Balance 3903 1923 1335 Weight 104.6 kg 104.4 kg General appearance: PRESENT: no acute distress Head exam: PRESENT: normocephalic Eye exam: PRESENT: EOMI Mouth exam: PRESENT: moist Neck exam: PRESENT: full ROM Respiratory exam: PRESENT: clear to auscultation rio Cardiovascular exam: PRESENT: RRR Pulses: PRESENT: normal radial pulses, normal femoral pulses Vascular exam: PRESENT: normal capillary refill GI/Abdominal exam: PRESENT: soft Rectal exam: PRESENT: deferred Extremities exam: PRESENT: full ROM Musculoskeletal exam: PRESENT: full ROM Neurological exam: PRESENT: alert, awake, oriented to person, oriented to place Psychiatric exam: PRESENT: appropriate affect Skin exam: PRESENT: dry Results Laboratory Results: 11/01/18 05:35 11/01/18 05:35 11/01/18 11/01/18 05:35 05:35 WBC 9.7 RBC 2.86 L Hgb 8.6 L Hct 25.0 L MCV 87 MCH 30.0 MCHC 34.3 RDW 14.5 H Plt Count 281 Seg Neutrophils % Not Reportable Lymphocytes % Not Reportable Monocytes % Not Reportable Eosinophils % Not Reportable Basophils % Not Reportable Absolute Neutrophils Not Reportable Absolute Lymphocytes Not Reportable Absolute Monocytes Not Reportable Absolute Eosinophils Not Reportable Absolute Basophils Not Reportable Sodium 138.7 Potassium 4.2 Chloride 109 H Carbon Dioxide 25 Anion Gap 5 BUN 14 Creatinine 0.64 Est GFR ( Amer) > 60 Est GFR (Non-Af Amer) > 60 Glucose 87 Calcium 8.5 Magnesium 2.1 Total Bilirubin 0.1 L AST 14 ALT 27 Alkaline Phosphatase 74 Total Protein 5.1 L Albumin 2.6 L Impressions: Upper Extremity CT 10/24/18 15:23 IMPRESSION: No evidence of abscess or osteomyelitis. Head CT 10/24/18 15:25 IMPRESSION: NORMAL BRAIN CT WITHOUT CONTRAST. EVIDENCE OF ACUTE STROKE: NO. Chest X-Ray 10/31/18 00:00 IMPRESSION: NO ACUTE RADIOGRAPHIC FINDING IN THE CHEST. Assessment & Plan - Diagnosis (1) Abscess of back Is this a current diagnosis for this admission?: Yes - Plan Summary Plan Summary: s/p debridement of rt posterior shoulder abscess now with wound vac in place afeb vss feels well no further cellulitis awaiting qualification for \ wound vac at home. `
[2018-11-02] MEDS: CLINDAMYCIN 600 MG/D5W RTU 600 MG/50 ML RTUPB IV SCH (02:52)
[2018-11-02] MEDS: IBUPROFEN 600 MG TABLET PO PRN ×3 (06:08→18:05)
[2018-11-02] MEDS: DIPHENHYDRAMINE HCL 50 MG/ML VIAL IV PRN ×4 (06:08→19:28)
[2018-11-02] MEDS: MORPHINE SULFATE 10 MG/ML INJ IV PRN ×2 (06:08→10:29)
[2018-11-02 07:40] LABS: ALANINE AMINOTRANSFERASE 27 U/L (9-52); ALBUMIN 2.9 g/dL (3.5-5.0); ALKALINE PHOSPHATASE 80 U/L (38-126); ASPARTATE AMINO TRANSFERASE 14 U/L (14-36); BILIRUBIN,DIRECT 0.1 mg/dL (0.0-0.4); BILIRUBIN,TOTAL 0.2 mg/dL (0.2-1.3); BLOOD UREA NITROGEN 15 mg/dL (7-20); CALCIUM 8.9 mg/dL (8.4-10.2); GLUCOSE 83 mg/dL (75-110); POTASSIUM 4.5 mmol/L (3.6-5.0); TOTAL PROTEIN 5.6 g/dL (6.3-8.2)
[2018-11-02 07:43] LABS: HEMATOCRIT 25.7 % (36.0-47.0); MEAN CORPUSCULAR HEMOGLOBIN 30.9 pg (27.0-33.4); MEAN CORPUSCULAR HGB CONC 34.9 g/dL (32.0-36.0); MEAN CORPUSCULAR VOLUME 88 fl (80-97); PLATELET COUNT 293 10^3/uL (150-450); RED CELL DISTRIBUTION WIDTH 14.4 % (11.5-14.0)
[2018-11-02 07:45] LABS: CARBON DIOXIDE 29 mmol/L (22-30); CHLORIDE 105 mmol/L (98-107); SODIUM 137.7 mmol/L (137-145)
[2018-11-02 07:49] LABS: ANION GAP 4 (5-19)
[2018-11-02 08:37] LABS: ABSOLUTE LYMPHOCYTES# (MANUAL) 3.3 10^3/uL (0.5-4.7); ABSOLUTE MONOCYTES # (MANUAL) 0.5 10^3/uL (0.1-1.4); ABSOLUTE NEUTROPHILS# (MANUAL) 4.8 10^3/uL (1.7-8.2); BASOPHILS % (MANUAL) 0 % (0-2); EOSINOPHILS % (MANUAL) 4 % (0-6); LYMPHOCYTES % (MANUAL) 37 % (13-45); MONOCYTES % (MANUAL) 6 % (3-13); SEGMENTED NEUTROPHILS % (MAN) 53 % (42-78); TOTAL CELLS COUNTED 100
[2018-11-02 08:38] LABS: ANISOCYTOSIS SLIGHT; PLATELET COMMENT ADEQUATE; PLATELET GIANT PRESENT
--- NOTE | 2018-11-02 09:29 | PDOC PROGRESS REPORT ---
Subjective Progress Note for:: 11/02/18 Subjective:: 43 year old female with a PMH of perforated diverticulitis S/P colectomy and colostomy, history of opiate abuse now on methadone therapy and prior history of MRSA cellulitis who presented with a draining wound on the right upper back/shoulder area. Patient reports she had a pimple-like lesion on the mentioned area 3 days ago and this popped out spontaneously and developed into an open wound with some purulent drainage. She developed significant erythema and tenderness noticeably extending from the right mid back to the right shoulder area. She also reported of associated fever and chills. 10/25: She still has pain and tenderness on the affected areas. There is no significant improvement this morning compared to yesterday but lesions have not gone beyond the demarcations. 10/26: Lesions appear worse today. The erythema has gone beyond the demarcations despite being on IV antibiotics. There is also a new area of erythema that has developed adjacent to the previous cellulitic lesions. Wound culture grew MRSA. Will consult surgery. 10/27: Patient was deemed to have necrotizing fasciitis. She underwent incision, drainage and debridement last night by surgery. She complains of pain this morning. Noted soaked packs on debrided wound. Will increase morphine. 10/28: No acute event overnight. Patient was re evaluated by surgery this morning and had wound vac placement. Patient complains of more pain during placement but on encounter, she is not in acute distress but does complain it hurt more with the wound vac. No fever or chills. 10/29/2018-no acute events in last 24 hours. Surgical team is following the patient. Patient has a necrotizing fasciitis status post incision and drainage and debridement on 10/26/2018. Patient has a wound VAC. Presently on IV clindamycin and IV vancomycin. Patient is afebrile. Cultures from the right shoulder abscess came back positive for MRSA. T-max is 98.5 blood pressure is 152/72. Presently receiving methadone 130 mg and morphine 3 mg IV every 4 as needed she is also receiving Toradol IV every 6 as needed patient is requesting to increase the frequency of Toradol to every 4 as needed. 10/30/2018-no acute events in the last 24 hours. Patient is afebrile. Patient is on contact isolation. Status post debridement, incision and drainage for necrotizing fasciitis on the back of the right shoulder. She has a wound VAC. Wound VAC changed this morning. Presently on IV clindamycin and IV vancomycin as per ID recommendations plan to discontinue IV vancomycin from today. Patient is comfortable in the bed denies any pain at this point. 10/31/2018-patient had an arterial bleed last night from the wound. Went to the OR for ligation. Hemoglobin R is 10.6. No plans to give any blood transfusion. Patient is without wound VAC this morning. The wound on the right shoulder is covered with dressing. Waiting for surgical evaluation this morning. Patient states she is doing much better. If possible she wants to go home either today or tomorrow. As per the patient pain is better controlled. T-max is 98.4. 11/01/2018-no acute events in the last 24 hours. Patient is afebrile. T-max is 98.7. It is comfortably in the bed denies any complaints. Waiting for the wound VAC arrangements for the patient to be discharged. 11/02/2018-no acute events in the last 24 hours. Patient is afebrile. T-max is 97.7. Pulse ox is 97% on room air. WBC count is 9.0 Patient has a wound VAC connected to the back of the right shoulder. Patient has up abscess behind right shoulder status post debridement and wound VAC placement. Presently on IV clindamycin plan is to change the antibiotic to p.o. clindamycin. 6 today. Plan to check hemoglobin again tomorrow if necessary difficult to transfer the patient. No complaints from the patient. Presently on IV clindamycin plan is to change to p.o. clindamycin. Reason For Visit: CELLULITIS Physical Exam Vital Signs: Temp Pulse Resp BP Pulse Ox 97.7 F 74 18 151/57 H 97 11/02/18 00:00 11/02/18 00:00 11/02/18 00:00 11/02/18 00:00 11/02/18 00:00 Intake & Output 11/01/18 11/02/18 11/03/18 06:59 06:59 06:59 Intake Total 1922 1410 Output Total 25 Balance 1922 1385 Weight 104.4 kg 108.1 kg General appearance: PRESENT: no acute distress Head exam: PRESENT: atraumatic Eye exam: PRESENT: PERRLA Neck exam: ABSENT: carotid bruit, JVD, lymphadenopathy, thyromegaly Respiratory exam: PRESENT: clear to auscultation rio. ABSENT: rales, rhonchi, wheezes Cardiovascular exam: PRESENT: RRR. ABSENT: diastolic murmur, rubs, systolic mu rmur GI/Abdominal exam: PRESENT: normal bowel sounds, soft. ABSENT: distended, guarding, mass, organolmegaly, rebound, tenderness Neurological exam: PRESENT: alert, awake, oriented to person, oriented to place, oriented to time, oriented to situation, CN II-XII grossly intact. ABSENT: motor sensory deficit Psychiatric exam: PRESENT: appropriate affect, normal mood. ABSENT: homicidal ideation, suicidal ideation Results Laboratory Results: 11/02/18 06:37 11/02/18 06:37 11/02/18 11/02/18 06:37 06:37 WBC 9.0 RBC 2.90 L Hgb 9.0 L Hct 25.7 L MCV 88 MCH 30.9 MCHC 34.9 RDW 14.4 H Plt Count 293 Seg Neutrophils % Not Reportable Lymphocytes % Not Reportable Monocytes % Not Reportable Eosinophils % Not Reportable Basophils % Not Reportable Absolute Neutrophils Not Reportable Absolute Lymphocytes Not Reportable Absolute Monocytes Not Reportable Absolute Eosinophils Not Reportable Absolute Basophils Not Reportable Sodium 137.7 Potassium 4.5 Chloride 105 Carbon Dioxide 29 Anion Gap 4 L BUN 15 Creatinine 0.66 Est GFR ( Amer) > 60 Est GFR (Non-Af Amer) > 60 Glucose 83 Calcium 8.9 Magnesium 2.0 Total Bilirubin 0.2 AST 14 ALT 27 Alkaline Phosphatase 80 Total Protein 5.6 L Albumin 2.9 L Impressions: Upper Extremity CT 10/24/18 15:23 IMPRESSION: No evidence of abscess or osteomyelitis. Head CT 10/24/18 15:25 IMPRESSION: NORMAL BRAIN CT WITHOUT CONTRAST. EVIDENCE OF ACUTE STROKE: NO. Chest X-Ray 10/31/18 00:00 IMPRESSION: NO ACUTE RADIOGRAPHIC FINDING IN THE CHEST. Assessment and Plan - Diagnosis (1) Necrotizing fasciitis Is this a current diagnosis for this admission?: Yes Plan: 10/27: Patient was deemed to have necrotizing fasciitis. She underwent incision, drainage and debridement last night by surgery. She complains of pain this morning. Noted soaked packs on debrided wound. Will increase morphine to 3 mg q4h prn. Continue IV antibiotics for now. 10/28: Patient was re evaluated by surgery this morning and had wound vac placement. Patient complains of more pain during placement but on encounter, she is not in acute distress but does complain it hurt more with the wound vac. 10/29/2018-patient has a necrotizing fasciitis posterior aspect of the right shoulder status post incision, drainage, debridement. Patient has a wound VAC. Draining well. Presently on morphine 3 mg every 4 as needed, methadone 130 mg daily, Toradol IV every 6 as needed. Plan to increase the frequency of Toradol to every 4 as needed. On IV clindamycin and vancomycin plan is to continue the present management. The wound cultures from the right shoulder came back positive for MRSA. 10/30/2018- no c/o of pains today. Presently on IV clindamycin and IV vancomycin as per ID recommendations IV vancomycin is discontinued. Plan to transition IV clindamycin to p.o. clindamycin before discharge. Patient is afebrile. Wound culture showing MRSA. She is on contact isolation. Presently on methadone 130 mg daily, Toradol IV every 4 as needed, morphine 3 mg every 4 hours as needed. Plan is to continue the present management. 10/31/2018-no complaints of pain today. Patient is presently on IV clindamycin. Wound culture shows MRSA. Plan to transition the antibiotic to p.o. clindamycin from today. As for the patient pain is been controlled. There is arterial bleed last night it was taken care of by the surgical team. Hemoglobin stable around 10.6. Presently off the wound VAC waiting for the surgical follow-up today. 11/01/2018-no complaints of pain today. Methadone was read started today. Presently on IV clindamycin. Wound cultures are positive for MRSA. As per ID recommendations plan is to change IV vancomycin to clindamycin today. Hemoglobin is 8.6 to recheck the hemoglobin tomorrow. If necessary we could to transfer the patient again. Wound VAC placed back last night. 11/02/2018-no acute events in the last 24 hours. No complaints of pain. Presently on IV clindamycin plan is to change to p.o. clindamycin from today. Patient is afebrile for the last several days. Patient hemoglobin is 9.0 stable. Patient waiting for wound VAC approval from [facility] to go home. (2) Cellulitis of back Is this a current diagnosis for this admission?: Yes (3) Opiate dependence Is this a current diagnosis for this admission?: Yes (4) Morbid obesity Is this a current diagnosis for this admission?: No - Time Time Spent with patient: 15-24 minutes Smoking Cessation Education: 3 to 10 minutes Medications reviewed and adjusted accordingly: Yes Anticipated discharge: Home with Homehealth
[2018-11-02] MEDS: METHADONE HCL 10 MG TABLET PO SCH (10:19)
[2018-11-02] MEDS: NICOTINE 21 MG/24 HR PATCH.TD24 TD PRN (10:29)
[2018-11-02] MEDS: ENOXAPARIN SODIUM INJ 40 MG/0.4 ML DISP.SYRIN SUBCUT SCH (10:44)
--- NOTE | 2018-11-02 10:51 | PDOC PROGRESS REPORT ---
Subjective Progress Note for:: 11/02/18 Reason For Visit: CELLULITIS Physical Exam Vital Signs: Temp Pulse Resp BP Pulse Ox 97.7 F 74 18 151/57 H 97 11/02/18 00:00 11/02/18 00:00 11/02/18 00:00 11/02/18 00:00 11/02/18 00:00 Intake & Output 11/01/18 11/02/18 11/03/18 06:59 06:59 06:59 Intake Total 192 1410 Output Total 25 Balance 1923 1385 Weight 104.4 kg 108.1 kg Results Laboratory Results: 11/02/18 06:37 11/02/18 06:37 11/02/18 11/02/18 06:37 06:37 WBC 9.0 RBC 2.90 L Hgb 9.0 L Hct 25.7 L MCV 88 MCH 30.9 MCHC 34.9 RDW 14.4 H Plt Count 293 Seg Neutrophils % Not Reportable Lymphocytes % Not Reportable Monocytes % Not Reportable Eosinophils % Not Reportable Basophils % Not Reportable Absolute Neutrophils Not Reportable Absolute Lymphocytes Not Reportable Absolute Monocytes Not Reportable Absolute Eosinophils Not Reportable Absolute Basophils Not Reportable Sodium 137.7 Potassium 4.5 Chloride 105 Carbon Dioxide 29 Anion Gap 4 L BUN 15 Creatinine 0.66 Est GFR ( Amer) > 60 Est GFR (Non-Af Amer) > 60 Glucose 83 Calcium 8.9 Magnesium 2.0 Total Bilirubin 0.2 AST 14 ALT 27 Alkaline Phosphatase 80 Total Protein 5.6 L Albumin 2.9 L Impressions: Upper Extremity CT 10/24/18 15:23 IMPRESSION: No evidence of abscess or osteomyelitis. Head CT 10/24/18 15:25 IMPRESSION: NORMAL BRAIN CT WITHOUT CONTRAST. EVIDENCE OF ACUTE STROKE: NO. Chest X-Ray 10/31/18 00:00 IMPRESSION: NO ACUTE RADIOGRAPHIC FINDING IN THE CHEST. Assessment & Plan - Diagnosis (1) Necrotizing fasciitis Is this a current diagnosis for this admission?: Yes - Plan Summary Plan Summary: This is a 43-year-old female with a necrotizing soft tissue infection of the right shoulder. Patient is a wound VAC in place today. The edges of the wound are without erythema. The patient is doing reasonably well. I believe the large soft tissue defect will require a rotation flap for closure. Plan to perform this in 2-3 weeks, after the wound VAC has created a healthy bed of granulation tissue. Awaiting wound VAC approval. Discharge home after wound VAC approved. The plan has been discussed at length with the patient, and she is in agreement.
[2018-11-02] MEDS: CLINDAMYCIN HCL 150 MG CAPSULE PO SCH ×2 (12:02→18:05)
[2018-11-02] MEDS: MORPHINE SULFATE IR 15 MG TABLET PO PRN (15:11)
[2018-11-03] MEDS: IBUPROFEN 600 MG TABLET PO PRN ×4 (00:05→20:22)
[2018-11-03] MEDS: DIPHENHYDRAMINE HCL 50 MG/ML VIAL IV PRN ×5 (00:05→20:23)
[2018-11-03] MEDS: CLINDAMYCIN HCL 150 MG CAPSULE PO SCH ×5 (00:06→23:07)
[2018-11-03] MEDS: MORPHINE SULFATE IR 15 MG TABLET PO PRN ×2 (04:05→16:05)
[2018-11-03] MEDS: ENOXAPARIN SODIUM INJ 40 MG/0.4 ML DISP.SYRIN SUBCUT SCH (08:03)
[2018-11-03] MEDS: METHADONE HCL 10 MG TABLET PO SCH (09:24)
[2018-11-03] MEDS: NICOTINE 21 MG/24 HR PATCH.TD24 TD PRN (09:25)
--- NOTE | 2018-11-03 09:59 | PDOC PROGRESS REPORT ---
Subjective Progress Note for:: 11/03/18 Subjective:: 43 year old female with a PMH of perforated diverticulitis S/P colectomy and colostomy, history of opiate abuse now on methadone therapy and prior history of MRSA cellulitis who presented with a draining wound on the right upper back/shoulder area. Patient reports she had a pimple-like lesion on the mentioned area 3 days ago and this popped out spontaneously and developed into an open wound with some purulent drainage. She developed significant erythema and tenderness noticeably extending from the right mid back to the right shoulder area. She also reported of associated fever and chills. 10/25: She still has pain and tenderness on the affected areas. There is no significant improvement this morning compared to yesterday but lesions have not gone beyond the demarcations. 10/26: Lesions appear worse today. The erythema has gone beyond the demarcations despite being on IV antibiotics. There is also a new area of erythema that has developed adjacent to the previous cellulitic lesions. Wound culture grew MRSA. Will consult surgery. 10/27: Patient was deemed to have necrotizing fasciitis. She underwent incision, drainage and debridement last night by surgery. She complains of pain this morning. Noted soaked packs on debrided wound. Will increase morphine. 10/28: No acute event overnight. Patient was re evaluated by surgery this morning and had wound vac placement. Patient complains of more pain during placement but on encounter, she is not in acute distress but does complain it hurt more with the wound vac. No fever or chills. 10/29/2018-no acute events in last 24 hours. Surgical team is following the patient. Patient has a necrotizing fasciitis status post incision and drainage and debridement on 10/26/2018. Patient has a wound VAC. Presently on IV clindamycin and IV vancomycin. Patient is afebrile. Cultures from the right shoulder abscess came back positive for MRSA. T-max is 98.5 blood pressure is 152/72. Presently receiving methadone 130 mg and morphine 3 mg IV every 4 as needed she is also receiving Toradol IV every 6 as needed patient is requesting to increase the frequency of Toradol to every 4 as needed. 10/30/2018-no acute events in the last 24 hours. Patient is afebrile. Patient is on contact isolation. Status post debridement, incision and drainage for necrotizing fasciitis on the back of the right shoulder. She has a wound VAC. Wound VAC changed this morning. Presently on IV clindamycin and IV vancomycin as per ID recommendations plan to discontinue IV vancomycin from today. Patient is comfortable in the bed denies any pain at this point. 10/31/2018-patient had an arterial bleed last night from the wound. Went to the OR for ligation. Hemoglobin R is 10.6. No plans to give any blood transfusion. Patient is without wound VAC this morning. The wound on the right shoulder is covered with dressing. Waiting for surgical evaluation this morning. Patient states she is doing much better. If possible she wants to go home either today or tomorrow. As per the patient pain is better controlled. T-max is 98.4. 11/01/2018-no acute events in the last 24 hours. Patient is afebrile. T-max is 98.7. It is comfortably in the bed denies any complaints. Waiting for the wound VAC arrangements for the patient to be discharged. 11/02/2018-no acute events in the last 24 hours. Patient is afebrile. T-max is 97.7. Pulse ox is 97% on room air. WBC count is 9.0 Patient has a wound VAC connected to the back of the right shoulder. Patient has up abscess behind right shoulder status post debridement and wound VAC placement. Presently on IV clindamycin plan is to change the antibiotic to p.o. clindamycin. 6 today. Plan to check hemoglobin again tomorrow if necessary difficult to transfer the patient. No complaints from the patient. Presently on IV clindamycin plan is to change to p.o. clindamycin. 11/03/2018-no acute events in the last 24 hours. Patient is afebrile. T-max is 98.7. Patient is waiting for a wound VAC approval to go home. Reason For Visit: CELLULITIS Physical Exam Vital Signs: Temp Pulse Resp BP Pulse Ox 98.0 F 77 18 127/62 H 98 11/03/18 08:36 11/03/18 08:36 11/03/18 08:36 11/03/18 08:36 11/03/18 08:36 Intake & Output 11/02/18 11/03/18 11/04/18 06:59 06:59 06:59 Intake Total 1410 Output Total 25 Balance 1385 Weight 108.1 kg 108 kg General appearance: PRESENT: no acute distress, obese Head exam: PRESENT: atraumatic Eye exam: PRESENT: PERRLA Neck exam: ABSENT: carotid bruit, JVD, lymphadenopathy, thyromegaly Respiratory exam: PRESENT: clear to auscultation rio. ABSENT: rales, rhonchi, wheezes Cardiovascular exam: PRESENT: RRR. ABSENT: diastolic murmur, rubs, systolic murmur GI/Abdominal exam: PRESENT: normal bowel sounds, soft. ABSENT: distended, guarding, mass, organolmegaly, rebound, tenderness Extremities exam: PRESENT: full ROM. ABSENT: calf tenderness, clubbing, pedal edema Neurological exam: PRESENT: alert, awake, oriented to person, oriented to place, oriented to time, oriented to situation, CN II-XII grossly intact. ABSENT: motor sensory deficit Psychiatric exam: PRESENT: appropriate affect, normal mood. ABSENT: homicidal ideation, suicidal ideation Results Laboratory Results: 11/02/18 06:37 11/02/18 06:37 Impressions: Upper Extremity CT 10/24/18 15:23 IMPRESSION: No evidence of abscess or osteomyelitis. Head CT 10/24/18 15:25 IMPRESSION: NORMAL BRAIN CT WITHOUT CONTRAST. EVIDENCE OF ACUTE STROKE: NO. Chest X-Ray 10/31/18 00:00 IMPRESSION: NO ACUTE RADIOGRAPHIC FINDING IN THE CHEST. Assessment and Plan - Diagnosis (1) Necrotizing fasciitis Is this a current diagnosis for this admission?: Yes Plan: 10/27: Patient was deemed to have necrotizing fasciitis. She underwent incision, drainage and debridement last night by surgery. She complains of pain this morning. Noted soaked packs on debrided wound. Will increase morphine to 3 mg q4h prn. Continue IV antibiotics for now. 10/28: Patient was re evaluated by surgery this morning and had wound vac placement. Patient complains of more pain during placement but on encounter, she is not in acute distress but does complain it hurt more with the wound vac. 10/29/2018-patient has a necrotizing fasciitis posterior aspect of the right shoulder status post incision, drainage, debridement. Patient has a wound VAC. Draining well. Presently on morphine 3 mg every 4 as needed, methadone 130 mg daily, Toradol IV every 6 as needed. Plan to increase the frequency of Toradol to every 4 as needed. On IV clindamycin and vancomycin plan is to continue the present management. The wound cultures from the right shoulder came back positive for MRSA. 10/30/2018- no c/o of pains today. Presently on IV clindamycin and IV vancomycin as per ID recommendations IV vancomycin is discontinued. Plan to transition IV clindamycin to p.o. clindamycin before discharge. Patient is afebrile. Wound culture showing MRSA. She is on contact isolation. Presently on methadone 130 mg daily, Toradol IV every 4 as needed, morphine 3 mg every 4 hours as needed. Plan is to continue the present management. 10/31/2018-no complaints of pain today. Patient is presently on IV clindamycin. Wound culture shows MRSA. Plan to transition the antibiotic to p.o. clindamycin from today. As for the patient pain is been controlled. There is arterial bleed last night it was taken care of by the surgical team. Hemoglobin stable around 10.6. Presently off the wound VAC waiting for the surgical follow-up today. 11/01/2018-no complaints of pain today. Methadone was read started today. Presently on IV clindamycin. Wound cultures are positive for MRSA. As per ID recommendations plan is to change IV vancomycin to clindamycin today. Hemoglobin is 8.6 to recheck the hemoglobin tomorrow. If necessary we could to transfer the patient again. Wound VAC placed back last night. 11/02/2018-no acute events in the last 24 hours. No complaints of pain. Presently on IV clindamycin plan is to change to p.o. clindamycin from today. Patient is afebrile for the last several days. Patient hemoglobin is 9.0 stable. Patient waiting for wound VAC approval from [facility] to go home. [id number] female admitted for necrotizing fasciitis behind the right shoulder posterior aspect of the right shoulder status post debridement and wound VAC placement. Wound cultures came back positive for MRSA. Presently on p.o. clindamycin. She is also on p.o. morphine and methadone for pain management. Waiting for the wound VAC approval for her to go home. (2) Cellulitis of back Is this a current diagnosis for this admission?: Yes (3) Opiate dependence Is this a current diagnosis for this admission?: Yes (4) Morbid obesity Is this a current diagnosis for this admission?: No - Time Time Spent with patient: 15-24 minutes Medications reviewed and adjusted accordingly: Yes Anticipated discharge: Home with Homehealth
--- NOTE | 2018-11-03 21:55 | PDOC PROGRESS REPORT ---
Subjective Progress Note for:: 11/03/18 Reason For Visit: CELLULITIS Physical Exam Vital Signs: Temp Pulse Resp BP Pulse Ox 98.6 F 98 18 137/59 H 97 11/03/18 20:00 11/03/18 20:00 11/03/18 20:00 11/03/18 20:00 11/03/18 20:00 Intake & Output 11/02/18 11/03/18 11/04/18 06:59 06:59 06:59 Intake Total 1410 640 Output Total 25 Balance 1385 640 Weight 108.1 kg 108 kg Results Laboratory Results: 11/02/18 06:37 11/02/18 06:37 Impressions: Upper Extremity CT 10/24/18 15:23 IMPRESSION: No evidence of abscess or osteomyelitis. Head CT 10/24/18 15:25 IMPRESSION: NORMAL BRAIN CT WITHOUT CONTRAST. EVIDENCE OF ACUTE STROKE: NO. Chest X-Ray 10/31/18 00:00 IMPRESSION: NO ACUTE RADIOGRAPHIC FINDING IN THE CHEST. Assessment & Plan - Diagnosis (1) Necrotizing fasciitis Is this a current diagnosis for this admission?: Yes - Plan Summary Plan Summary: This is a 43-year-old female with a necrotizing soft tissue infection of the right shoulder. Patient is a wound VAC in place. The patient is doing reasonably well. I believe the large soft tissue defect will require a rotation flap for closure. Plan to perform this in 2-3 weeks, after the wound VAC has created a healthy bed of granulation tissue. Awaiting wound VAC approval. Discharge home after wound VAC approved. I will see the patient again on an as- needed basis. Please renotify with questions or concerns. Follow-up with Dr. Coburn at [facility] in 1-2 weeks.
[2018-11-04] MEDS: CLINDAMYCIN HCL 150 MG CAPSULE PO SCH ×4 (05:36→23:25)
[2018-11-04] MEDS: DIPHENHYDRAMINE HCL 50 MG/ML VIAL IV PRN ×4 (05:36→21:56)
[2018-11-04] MEDS: MORPHINE SULFATE IR 15 MG TABLET PO PRN ×2 (05:36→17:37)
[2018-11-04] MEDS: ENOXAPARIN SODIUM INJ 40 MG/0.4 ML DISP.SYRIN SUBCUT SCH (08:42)
--- NOTE | 2018-11-04 09:18 | PDOC PROGRESS REPORT ---
Subjective Progress Note for:: 11/04/18 Subjective:: 43 year old female with a PMH of perforated diverticulitis S/P colectomy and colostomy, history of opiate abuse now on methadone therapy and prior history of MRSA cellulitis who presented with a draining wound on the right upper back/shoulder area. Patient reports she had a pimple-like lesion on the mentioned area 3 days ago and this popped out spontaneously and developed into an open wound with some purulent drainage. She developed significant erythema and tenderness noticeably extending from the right mid back to the right shoulder area. She also reported of associated fever and chills. 10/25: She still has pain and tenderness on the affected areas. There is no significant improvement this morning compared to yesterday but lesions have not gone beyond the demarcations. 10/26: Lesions appear worse today. The erythema has gone beyond the demarcations despite being on IV antibiotics. There is also a new area of erythema that has developed adjacent to the previous cellulitic lesions. Wound culture grew MRSA. Will consult surgery. 10/27: Patient was deemed to have necrotizing fasciitis. She underwent incision, drainage and debridement last night by surgery. She complains of pain this morning. Noted soaked packs on debrided wound. Will increase morphine. 10/28: No acute event overnight. Patient was re evaluated by surgery this morning and had wound vac placement. Patient complains of more pain during placement but on encounter, she is not in acute distress but does complain it hurt more with the wound vac. No fever or chills. 10/29/2018-no acute events in last 24 hours. Surgical team is following the patient. Patient has a necrotizing fasciitis status post incision and drainage and debridement on 10/26/2018. Patient has a wound VAC. Presently on IV clindamycin and IV vancomycin. Patient is afebrile. Cultures from the right shoulder abscess came back positive for MRSA. T-max is 98.5 blood pressure is 152/72. Presently receiving methadone 130 mg and morphine 3 mg IV every 4 as needed she is also receiving Toradol IV every 6 as needed patient is requesting to increase the frequency of Toradol to every 4 as needed. 10/30/2018-no acute events in the last 24 hours. Patient is afebrile. Patient is on contact isolation. Status post debridement, incision and drainage for necrotizing fasciitis on the back of the right shoulder. She has a wound VAC. Wound VAC changed this morning. Presently on IV clindamycin and IV vancomycin as per ID recommendations plan to discontinue IV vancomycin from today. Patient is comfortable in the bed denies any pain at this point. 10/31/2018-patient had an arterial bleed last night from the wound. Went to the OR for ligation. Hemoglobin R is 10.6. No plans to give any blood transfusion. Patient is without wound VAC this morning. The wound on the right shoulder is covered with dressing. Waiting for surgical evaluation this morning. Patient states she is doing much better. If possible she wants to go home either today or tomorrow. As per the patient pain is better controlled. T-max is 98.4. 11/01/2018-no acute events in the last 24 hours. Patient is afebrile. T-max is 98.7. It is comfortably in the bed denies any complaints. Waiting for the wound VAC arrangements for the patient to be discharged. 11/02/2018-no acute events in the last 24 hours. Patient is afebrile. T-max is 97.7. Pulse ox is 97% on room air. WBC count is 9.0 Patient has a wound VAC connected to the back of the right shoulder. Patient has up abscess behind right shoulder status post debridement and wound VAC placement. Presently on IV clindamycin plan is to change the antibiotic to p.o. clindamycin. 6 today. Plan to check hemoglobin again tomorrow if necessary difficult to transfer the patient. No complaints from the patient. Presently on IV clindamycin plan is to change to p.o. clindamycin. 11/03/2018-no acute events in the last 24 hours. Patient is afebrile. T-max is 98.7. Patient is waiting for a wound VAC approval to go home. 11/04/2018-no acute events in the last 24 hours. Patient is afebrile. T-max is 98.5. Comfortable and impaired not in distress. Waiting for the wound VAC approval prior to discharge. Reason For Visit: CELLULITIS Physical Exam Vital Signs: Temp Pulse Resp BP Pulse Ox 97.9 F 71 16 104/41 L 96 11/04/18 08:00 11/04/18 08:00 11/04/18 08:00 11/04/18 08:00 11/04/18 08:00 Intake & Output 11/03/18 11/04/18 11/05/18 06:59 06:59 06:59 Intake Total 1120 Balance 1120 Weight 108 kg 108 kg General appearance: PRESENT: no acute distress, obese Head exam: PRESENT: atraumatic Eye exam: PRESENT: PERRLA Neck exam: ABSENT: carotid bruit, JVD, lymphadenopathy, thyromegaly Respiratory exam: PRESENT: decreased breath sounds Cardiovascular exam: PRESENT: RRR. ABSENT: diastolic murmur, rubs, systolic murmur GI/Abdominal exam: PRESENT: normal bowel sounds, soft. ABSENT: distended, guarding, mass, organolmegaly, rebound, tenderness Rectal exam: PRESENT: deferred Extremities exam: PRESENT: other - Patient has wound VAC connected to the posterior aspect of the right shoulder. Neurological exam: PRESENT: alert, awake, oriented to person, oriented to place, oriented to time, oriented to situation, CN II-XII grossly intact. ABSENT: motor sensory deficit Psychiatric exam: PRESENT: appropriate affect, normal mood. ABSENT: homicidal ideation, suicidal ideation Results Laboratory Results: 11/02/18 06:37 11/02/18 06:37 Impressions: Upper Extremity CT 10/24/18 15:23 IMPRESSION: No evidence of abscess or osteomyelitis. Head CT 10/24/18 15:25 IMPRESSION: NORMAL BRAIN CT WITHOUT CONTRAST. EVIDENCE OF ACUTE STROKE: NO. Chest X-Ray 10/31/18 00:00 IMPRESSION: NO ACUTE RADIOGRAPHIC FINDING IN THE CHEST. Assessment and Plan - Diagnosis (1) Necrotizing fasciitis Is this a current diagnosis for this admission?: Yes Plan: 10/27: Patient was deemed to have necrotizing fasciitis. She underwent incision, drainage and debridement last night by surgery. She complains of pain this morning. Noted soaked packs on debrided wound. Will increase morphine to 3 mg q4h prn. Continue IV antibiotics for now. 10/28: Patient was re evaluated by surgery this morning and had wound vac placement. Patient complains of more pain during placement but on encounter, she is not in acute distress but does complain it hurt more with the wound vac. 10/29/2018-patient has a necrotizing fasciitis posterior aspect of the right shoulder status post incision, drainage, debridement. Patient has a wound VAC. Draining well. Presently on morphine 3 mg every 4 as needed, methadone 130 mg daily, Toradol IV every 6 as needed. Plan to increase the frequency of Toradol to every 4 as needed. On IV clindamycin and vancomycin plan is to continue the present management. The wound cultures from the right shoulder came back positive for MRSA. 10/30/2018- no c/o of pains today. Presently on IV clindamycin and IV vancomycin as per ID recommendations IV vancomycin is discontinued. Plan to transition IV clindamycin to p.o. clindamycin before discharge. Patient is afebrile. Wound culture showing MRSA. She is on contact isolation. Presently on methadone 130 mg daily, Toradol IV every 4 as needed, morphine 3 mg every 4 hours as needed. Plan is to continue the present management. 10/31/2018-no complaints of pain today. Patient is presently on IV clindamycin. Wound culture shows MRSA. Plan to transition the antibiotic to p.o. clindamycin from today. As for the patient pain is been controlled. There is arterial bleed last night it was taken care of by the surgical team. Hemoglobin stable around 10.6. Presently off the wound VAC waiting for the surgical follow-up today. 11/01/2018-no complaints of pain today. Methadone was read started today. Presently on IV clindamycin. Wound cultures are positive for MRSA. As per ID recommendations plan is to change IV vancomycin to clindamycin today. Hemoglobin is 8.6 to recheck the hemoglobin tomorrow. If necessary we could to transfer the patient again. Wound VAC placed back last night. 11/02/2018-no acute events in the last 24 hours. No complaints of pain. Presently on IV clindamycin plan is to change to p.o. clindamycin from today. Patient is afebrile for the last several days. Patient hemoglobin is 9.0 stable. Patient waiting for wound VAC approval from [facility] to go home. 11/03/[id number]-kjdq-old female admitted for necrotizing fasciitis behind the right shoulder posterior aspect of the right shoulder status post debridement and wound VAC placement. Wound cultures came back positive for MRSA. Presently on p.o. clindamycin. She is also on p.o. morphine and methadone for pain management. Waiting for the wound VAC approval for her to go home. 11/04/[id number]-vvpi-old female admitted with necrotizing fasciitis of the posterior aspect of the right shoulder status post debridement and wound VAC placement. Patient is presently on p.o. clindamycin for MRSA. Afebrile. Waiting for wound VAC approval prior to discharge. (2) Cellulitis of back Is this a current diagnosis for this admission?: Yes (3) Opiate dependence Is this a current diagnosis for this admission?: Yes (4) Morbid obesity Is this a current diagnosis for this admission?: No - Time Time Spent with patient: 15-24 minutes Medications reviewed and adjusted accordingly: Yes Anticipated discharge: Home with Homehealth
[2018-11-04] MEDS: METHADONE HCL 10 MG TABLET PO SCH (10:51)
[2018-11-04] MEDS: NICOTINE 21 MG/24 HR PATCH.TD24 TD PRN (10:58)
[2018-11-04] MEDS: IBUPROFEN 600 MG TABLET PO PRN ×2 (12:51→21:56)
[2018-11-04 13:30] LABS: HEMATOCRIT 31.6 % (36.0-47.0); HEMOGLOBIN 10.6 g/dL (12.0-15.5); MEAN CORPUSCULAR HEMOGLOBIN 29.6 pg (27.0-33.4); MEAN CORPUSCULAR HGB CONC 33.6 g/dL (32.0-36.0); MEAN CORPUSCULAR VOLUME 88 fl (80-97); PLATELET COUNT 374 10^3/uL (150-450); RED BLOOD COUNT 3.59 10^6/uL (3.72-5.28); RED CELL DISTRIBUTION WIDTH 14.7 % (11.5-14.0); WHITE BLOOD COUNT 15.2 10^3/uL (4.0-10.5)
[2018-11-04 14:15] LABS: ABSOLUTE LYMPHOCYTES# (MANUAL) 3.5 10^3/uL (0.5-4.7); ABSOLUTE MONOCYTES # (MANUAL) 0.8 10^3/uL (0.1-1.4); ABSOLUTE NEUTROPHILS# (MANUAL) 10.5 10^3/uL (1.7-8.2); ANISOCYTOSIS SLIGHT; BAND NEUTROPHILS % (MANUAL) 2 % (3-5); BASOPHILS % (MANUAL) 0 % (0-2); EOSINOPHILS % (MANUAL) 3 % (0-6); LYMPHOCYTES % (MANUAL) 23 % (13-45); METAMYELOCYTES % (MANUAL) 2 % (0); MONOCYTES % (MANUAL) 5 % (3-13); PLATELET COMMENT ADEQUATE; SEGMENTED NEUTROPHILS % (MAN) 65 % (42-78); TOTAL CELLS COUNTED 100
[2018-11-05] MEDS: MORPHINE SULFATE IR 15 MG TABLET PO PRN ×2 (05:39→19:43)
[2018-11-05] MEDS: DIPHENHYDRAMINE HCL 50 MG/ML VIAL IV PRN ×4 (05:39→23:46)
[2018-11-05] MEDS: CLINDAMYCIN HCL 150 MG CAPSULE PO SCH ×4 (05:39→23:46)
[2018-11-05] MEDS: ENOXAPARIN SODIUM INJ 40 MG/0.4 ML DISP.SYRIN SUBCUT SCH (08:43)
[2018-11-05] MEDS: METHADONE HCL 10 MG TABLET PO SCH (10:00)
[2018-11-05] MEDS: NICOTINE 21 MG/24 HR PATCH.TD24 TD PRN (11:49)
[2018-11-05] MEDS: IBUPROFEN 600 MG TABLET PO PRN ×3 (11:50→23:46)
[2018-11-06] MEDS ORDERED: MORPHINE SULFATE 10 MG/ML INJ ONE (02:41)
[2018-11-06] MEDS ORDERED: MORPHINE SULFATE 10 MG/ML INJ IV ONE (03:00)
[2018-11-06] MEDS: DIPHENHYDRAMINE HCL 50 MG/ML VIAL IV PRN (06:07)
[2018-11-06] MEDS: CLINDAMYCIN HCL 150 MG CAPSULE PO SCH (06:08)
[2018-11-06] MEDS: IBUPROFEN 600 MG TABLET PO PRN (06:08)
[2018-11-06] MEDS: ENOXAPARIN SODIUM INJ 40 MG/0.4 ML DISP.SYRIN SUBCUT SCH (08:05)
[2018-11-06] MEDS: MORPHINE SULFATE IR 15 MG TABLET PO PRN (08:19)
[2018-11-06] MEDS: METHADONE HCL 10 MG TABLET PO SCH (10:05)
[2018-11-06 12:07] VITALS: BP 116/58
--- NOTE | 2018-11-06 12:15 | PDOC DISCHARGE SUMMARY ---
General - Admit/Disc Date/PCP Admission Date/Primary Care Provider: 10/24/18 18:48 Discharge Date: 11/05/18 - Discharge Diagnosis (1) Necrotizing fasciitis Is this a current diagnosis for this admission?: Yes (2) Cellulitis of back Is this a current diagnosis for this admission?: Yes (3) Abscess of back Is this a current diagnosis for this admission?: Yes (4) Opiate dependence Is this a current diagnosis for this admission?: Yes - Additional Information Resuscitation Status: Full Code Prescriptions: Clindamycin HCl [Cleocin 150 mg Capsule] 300 mg PO Q6 #4 capsule Home Medications: Methadone HCl [Methadose] 130 mg PO DAILY 10/25/18 Clindamycin HCl [Cleocin 150 mg Capsule] 300 mg PO Q6 #4 capsule 11/05/18 Ibuprofen [Motrin 600 mg Tablet] 600 mg PO Q6HP PRN #0 tablet 11/05/18 History of Present Illness History of Present Illness: AUSTEN PRESTON is a 43 year old female with a PMH of perforated diverticulitis S/P colectomy and colostomy, history of opiate abuse now on methadone therapy and prior history of MRSA cellulitis who presented with a draining wound on the right upper back/shoulder area. Patient reports she had a pimple-like lesion on the mentioned area 3 days ago and this popped out spontaneously and developed into an open wound with some purulent drainage. She developed significant erythema and tenderness noticeably extending from the right mid back to the right shoulder area. She also reported of associated fever and chills. Hospital Course Hospital Course: AUSTEN PRESTON is a 43 year old female with a PMH of perforated diverticulitis S/P colectomy and colostomy, history of opiate abuse now on methadone therapy and prior history of MRSA cellulitis who presented with a draining wound on the right upper back/shoulder area. She was admitted for an extensive cellulitis on the mentioned areas. She was started on Iv vancomycin but the lesions progressed. The erythema has gone beyond the demarcations despite being on IV antibiotics. There is also a new area of erythema that has developed adjacent to the previous cellulitic lesions. Wound culture grew MRSA. Surgery was consulted and she underwent incision, drainage and debridement by surgery on 10/26. She later had wound vac placement on 10/28. She slowly but gradually improved. Antibiotics were modified per ID recommendations and she was eventually switched to PO clindamycin. Her course was prolonged due to insurance issues and approval for wound vac. She had received enough antibiotics as per ID recommendation and will further need 1 more day of PO clinda (will have completed 7 days of PO clinda) on top of previous IV vancomycin. She will follow up with Dr. Coburn for revision of wound later. Physical Exam Vital Signs: Temp Pulse Resp BP Pulse Ox 98.7 F 99 17 118/64 97 11/05/18 16:31 11/05/18 16:31 11/05/18 16:31 11/05/18 16:31 11/05/18 16:31 Intake & Output 11/04/18 11/05/18 11/06/18 06:59 06:59 06:59 Intake Total 1120 900 800 Output Total 100 Balance 1120 800 800 Weight 238 lb 1.588 oz 235 lb 3.732 oz General appearance: PRESENT: no acute distress, well-developed, well-nourished Head exam: PRESENT: atraumatic, normocephalic Eye exam: PRESENT: conjunctiva pink, EOMI, PERRLA. ABSENT: scleral icterus Ear exam: PRESENT: normal external ear exam Mouth exam: PRESENT: moist, tongue midline Neck exam: ABSENT: carotid bruit, JVD, lymphadenopathy, thyromegaly Respiratory exam: PRESENT: clear to auscultation rio. ABSENT: rales, rhonchi, wheezes Cardiovascular exam: PRESENT: RRR. ABSENT: diastolic murmur, rubs, systolic murmur Pulses: PRESENT: normal dorsalis pedis pul GI/Abdominal exam: PRESENT: normal bowel sounds, soft. ABSENT: distended, guarding, mass, organolmegaly, rebound, tenderness Rectal exam: PRESENT: deferred Extremities exam: PRESENT: full ROM. ABSENT: calf tenderness, clubbing, pedal edema Musculoskeletal exam: PRESENT: other - wound vac in place Results Laboratory Results: 11/04/18 13:19 11/02/18 06:37 Impressions: Upper Extremity CT 10/24/18 15:23 IMPRESSION: No evidence of abscess or osteomyelitis. Head CT 10/24/18 15:25 IMPRESSION: NORMAL BRAIN CT WITHOUT CONTRAST. EVIDENCE OF ACUTE STROKE: NO. Chest X-Ray 10/31/18 00:00 IMPRESSION: NO ACUTE RADIOGRAPHIC FINDING IN THE CHEST. Qualifiers - * PATIENT BEING DISCHARGED WITH ANY OF THE FOLLOWING DIAGNOSIS: No
== END 2018-11-06 12:59 | disposition home health service (06) | DRG 464 ==
LOC: ER 12:04 → OBSVTOIN 18:48 → EH 18:48 → INTOOBSV 18:48 → 4N 23:05
PROVIDERS: ADMIT Internal Medicine; ATTEND Internal Medicine
PROC: 0JB70ZZ Excision of Back Subcutaneous Tissue and Fascia, Open Approach (ICD-10-PCS; principal; 2018-10-26 19:03)
PROC: 0W3K0ZZ Control Bleeding in Upper Back, Open Approach (ICD-10-PCS; 2018-10-30)
PROC: 0JC70ZZ Extirpation of Matter from Back Subcutaneous Tissue and Fascia, Open Approach (ICD-10-PCS; 2018-10-30)
DX: M72.6 Necrotizing fasciitis (principal); L03.312 Cellulitis of back [any part except buttock and flank]; F11.20 Opioid dependence, uncomplicated; D62 Acute posthemorrhagic anemia; K57.92 Diverticulitis of intestine, part unspecified, without perforation or abscess without bleeding; I95.9 Hypotension, unspecified; B95.62 Methicillin resistant Staphylococcus aureus infection as the cause of diseases classified elsewhere; F17.210 Nicotine dependence, cigarettes, uncomplicated; E66.01 Morbid (severe) obesity due to excess calories; Z86.14 Personal history of Methicillin resistant Staphylococcus aureus infection; Z90.49 Acquired absence of other specified parts of digestive tract; Z68.36 Body mass index [BMI] 36.0-36.9, adult
CPT/HCPCS: 01610; 01770; 36415; 70450; 71046; 80048; 80053; 80202; 82565; 83605; 83735; 84703; 85025; 86850; 86900; 86901; 86920; 87040; 87070; 87075; 87077; 87186; 87205; 96365; 96366; 96367; 96375; 99284; J0131; J0330; J1100; J1200; J1652; J1885; J2250; J2270; J2405; J2704; J3010; J3370; J3490; J7030; J7060

== ENCOUNTER → 2018-11-26 | Outpatient (CLI) | payer OTHER ==
[2018-11-26 15:19] LABS: ABSOLUTE EOSINOPHILS # (AUTO) 0.1 10^3/uL (0.0-0.6); ABSOLUTE LYMPHOCYTES (AUTO) 2.8 10^3/uL (0.5-4.7); ABSOLUTE MONOCYTES (AUTO) 0.6 10^3/uL (0.1-1.4); BASOPHILS % (AUTO) 0.4 % (0-2); EOSINOPHILS % (AUTO) 1.3 % (0-6); HEMATOCRIT 36.1 % (36.0-47.0); HEMOGLOBIN 11.8 g/dL (12.0-15.5); LYMPHOCYTES % (AUTO) 29.4 % (13-45); MEAN CORPUSCULAR HEMOGLOBIN 28.2 pg (27.0-33.4); MEAN CORPUSCULAR HGB CONC 32.7 g/dL (32.0-36.0); MEAN CORPUSCULAR VOLUME 86 fl (80-97); PLATELET COUNT 392 10^3/uL (150-450); RED BLOOD COUNT 4.19 10^6/uL (3.72-5.28); RED CELL DISTRIBUTION WIDTH 15.6 % (11.5-14.0); SEGMENTED NEUTROPHILS % (AUTO) 62.9 % (42-78); TOTAL CELLS COUNTED % (AUTO) 100 %; WHITE BLOOD COUNT 9.5 10^3/uL (4.0-10.5)
[2018-11-26 15:43] LABS: ALANINE AMINOTRANSFERASE 22 U/L (9-52); ALBUMIN 4.2 g/dL (3.5-5.0); ALKALINE PHOSPHATASE 86 U/L (38-126); ANION GAP 10 (5-19); ASPARTATE AMINO TRANSFERASE 19 U/L (14-36); BILIRUBIN,DIRECT 0.2 mg/dL (0.0-0.4); BILIRUBIN,TOTAL 0.3 mg/dL (0.2-1.3); BLOOD UREA NITROGEN 17 mg/dL (7-20); C-REACTIVE PROTEIN 7.5 mg/L (<10.0); CARBON DIOXIDE 28 mmol/L (22-30); CHLORIDE 103 mmol/L (98-107); GLUCOSE 99 mg/dL (75-110); POTASSIUM 4.6 mmol/L (3.6-5.0); SODIUM 141.2 mmol/L (137-145); TOTAL PROTEIN 7.8 g/dL (6.3-8.2)
[2018-11-26 15:56] LABS: ERYTHROCYTE SEDIMENTATION RATE 37 mm/hr (0-20)
--- NOTE | 2018-11-26 16:12 | RADIOLOGY REPORT (SQ) ---
EXAM DESCRIPTION: SHOULDER RIGHT 2 OR MORE VIEWS COMPLETED DATE/TIME: 11/26/2018 4:00 pm REASON FOR STUDY: NECROTIZING FASCIITIS M72.6 NECROTIZING FASCIITIS L02.212 CUTANEOUS ABSCESS OF B ACK ANY PART, EXCEPT BUTTOCK COMPARISON: None. NUMBER OF VIEWS: Three views. TECHNIQUE: Internal rotation, external rotation, and Y view images acquired of the right shoulder. LIMITATIONS: None. FINDINGS: MINERALIZATION: Normal. BONES: No acute fracture or dislocation. No worrisome bone lesions. JOINTS: No dislocation. VISUALIZED LUNGS AND RIBS: No pneumothorax. No rib fracture. SOFT TISSUES: No radiopaque foreign body. Right soft tissue wound vac over the scapular soft tissues OTHER: No other significant finding. IMPRESSION: NEGATIVE STUDY OF THE RIGHT SHOULDER. NO RADIOGRAPHIC EVIDENCE OF ACUTE INJURY. TECHNICAL DOCUMENTATION: JOB ID: [id number] [employer]- All Rights Reserved Reading location - IP/workstation name: [email or web address]
== END ==
LOC: WC 14:47
PROVIDERS: ATTEND Surgery
DX: M72.6 Necrotizing fasciitis (principal); L02.212 Cutaneous abscess of back [any part, except buttock and flank]
CPT/HCPCS: 36415; 80053; 85025; 85652; 86140

== ENCOUNTER 2018-12-17 22:56 | Emergency (ER) | payer OTHER | END 2018-12-18 00:05 | disposition left against medical advice (07) | LOC: ER 22:56 | DX: Z53.21 Procedure and treatment not carried out due to patient leaving prior to being seen by health care provider (principal) ==

== ENCOUNTER 2019-03-31 16:47 | Emergency (ER) | payer OTHER ==
--- NOTE | 2019-03-31 17:11 | ER Document Report ---
ED Medical Screen (RME) - General Chief Complaint: Jaw Pain Stated Complaint: SWOLLEN JAW Time Seen by Provider: 03/31/19 17:07 Primary Care Provider: DAYRON COMBS MD [Primary Care Provider] - Follow up as needed Mode of Arrival: Ambulatory Information source: Patient Notes: Patient is a 43-year-old female presenting with multiple complaints today. She complains of dark foul-smelling urine, generalized fatigue over the last few days and facial swelling. 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 Exam: Swelling noted to left side of patient's lower jaw. Patient speaking in full complete sentences without difficulty. I have greeted and performed a rapid initial assessment of this patient. A comprehensive ED assessment and evaluation of the patient, analysis of test results and completion of the medical decision making process will be conducted by additional ED providers. I have specifically instructed the patient or family members with the patient to immediately return to any nursing staff should anything change in the patient's condition or with their chief complaint. This medical record was dictated with voice recognizing software. There may be grammatical, syntax errors that are unintended. TRAVEL OUTSIDE OF THE [place] IN LAST 30 DAYS: No - Related Data Allergies/Adverse Reactions: No Known Allergies Allergy (Verified 03/31/19 16:48) Past Medical History Renal/ Medical History: Reports: Hx Kidney Stones, Hx Ovarian Cysts. Denies: Hx Peritoneal Dialysis GI Medical History: Reports: Hx Diverticulitis - Diverticula, Hx Ulcerative Colitis Skin Medical History: Reports Hx MRSA Infectious Medical History: Reports: Hx MRSA Past Surgical History: Reports: Hx Bowel Surgery - COLOSTOMY, Hx Colostomy, Hx Tubal Ligation Doctor's Discharge - Discharge Referrals: DAYRON COMBS MD [Primary Care Provider] - Follow up as needed
[2019-03-31 17:54] LABS: ABSOLUTE EOSINOPHILS # (AUTO) 0.2 10^3/uL (0.0-0.6); ABSOLUTE LYMPHOCYTES (AUTO) 2.5 10^3/uL (0.5-4.7); ABSOLUTE MONOCYTES (AUTO) 0.9 10^3/uL (0.1-1.4); ABSOLUTE NEUT (AUTO) 6.2 10^3/uL (1.7-8.2); BASOPHILS % (AUTO) 0.3 % (0-2); EOSINOPHILS % (AUTO) 2.2 % (0-6); HEMATOCRIT 37.7 % (36.0-47.0); HEMOGLOBIN 12.5 g/dL (12.0-15.5); LYMPHOCYTES % (AUTO) 25.4 % (13-45); MEAN CORPUSCULAR HEMOGLOBIN 27.9 pg (27.0-33.4); MEAN CORPUSCULAR HGB CONC 33.1 g/dL (32.0-36.0); MEAN CORPUSCULAR VOLUME 84 fl (80-97); MONOCYTES % (AUTO) 9.3 % (3-13); PLATELET COUNT 255 10^3/uL (150-450); RED BLOOD COUNT 4.48 10^6/uL (3.72-5.28); RED CELL DISTRIBUTION WIDTH 17.2 % (11.5-14.0); SEGMENTED NEUTROPHILS % (AUTO) 62.8 % (42-78); TOTAL CELLS COUNTED % (AUTO) 100 %; WHITE BLOOD COUNT 9.8 10^3/uL (4.0-10.5)
[2019-03-31 18:02] LABS: ALBUMIN 3.8 g/dL (3.5-5.0); ALKALINE PHOSPHATASE 108 U/L (38-126); ANION GAP 7 (5-19); ASPARTATE AMINO TRANSFERASE 34 U/L (14-36); BILIRUBIN,DIRECT 0.1 mg/dL (0.0-0.4); BILIRUBIN,TOTAL 0.4 mg/dL (0.2-1.3); BLOOD UREA NITROGEN 11 mg/dL (7-20); CALCIUM 9.1 mg/dL (8.4-10.2); CARBON DIOXIDE 31 mmol/L (22-30); CHLORIDE 101 mmol/L (98-107); GLUCOSE 100 mg/dL (75-110); TOTAL PROTEIN 6.7 g/dL (6.3-8.2)
[2019-03-31 20:31] LABS: APPEARANCE,URINE CLEAR; COLOR,URINE YELLOW; URINE SPECIFIC GRAVITY 1.029
[2019-03-31 20:32] LABS: BILIRUBIN,URINE NEGATIVE (NEGATIVE); GLUCOSE, URINE NEGATIVE (NEGATIVE); KETONES,URINE NEGATIVE (NEGATIVE); LEUKOCYTE ESTERASE,URINE TRACE (NEGATIVE); NITRITE,URINE NEGATIVE (NEGATIVE); PROTEIN,URINE 30 mg/dL (NEGATIVE)
[2019-03-31] MEDS ORDERED: CLINDAMYCIN HCL 150 MG CAPSULE PO ONE (22:04)
--- NOTE | 2019-03-31 22:10 | ER Document Report ---
ED General - General Chief Complaint: Jaw Pain Stated Complaint: SWOLLEN JAW Time Seen by Provider: 03/31/19 17:07 Primary Care Provider: DAYRON COMBS MD [Primary Care Provider] - Follow up as needed Mode of Arrival: Ambulatory Notes: E NOTE: Patient is a 43-year-old female presenting with multiple complaints today. She complains of dark foul-smelling urine, generalized fatigue over the last few days and facial swelling. 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 MY HPI: Patient is a 43-year-old female presents to the emergency department with generalized lesions noted to her face. 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 States based on her ileostomy and multiple procedures she does have a high risk for MRSA infections. Patient was initially complaining of dark foul smelling urine to E provider. When I asked the patient about it she states "I drink some water, it is better now." Patient's denying any vaginal discharge. She is denying any chest pain, abdominal pain, URI symptoms, fever. Patient voices she does take methadone for opiate addiction. She is denying any history or current IV drug abuse. Patient states lesions noted to her face have "increased" in the last 24 to 48 hours. She is denying any fever or discharge from said lesions. TRAVEL OUTSIDE OF THE [place] IN LAST 30 DAYS: No - Related Data Allergies/Adverse Reactions: No Known Allergies Allergy (Verified 03/31/19 16:48) Past Medical History - General Information source: Patient - Social History Smoking Status: Current Every Day Smoker Family History: Reviewed & Not Pertinent Patient has suicidal ideation: No Patient has homicidal ideation: No Renal/ Medical History: Reports: Hx Kidney Stones, Hx Ovarian Cysts. Denies: Hx Peritoneal Dialysis GI Medical History: Reports: Hx Diverticulitis - Diverticula, Hx Ulcerative Colitis Skin Medical History: Reports Hx MRSA Infectious Medical History: Reports: Hx MRSA Past Surgical History: Reports: Hx Bowel Surgery - COLOSTOMY, Hx Colostomy, Hx Tubal Ligation Review of Systems - Review of Systems Constitutional: denies: Fever EENT: See HPI Cardiovascular: No symptoms reported Respiratory: No symptoms reported Gastrointestinal: No symptoms reported Genitourinary: No symptoms reported Female Genitourinary: No symptoms reported Musculoskeletal: No symptoms reported Skin: See HPI Hematologic/Lymphatic: No symptoms reported Neurological/Psychological: No symptoms reported Physical Exam - Vital signs Vitals: Temp Resp BP Pulse Ox 98.0 F 16 132/68 H 92 03/31/19 16:54 03/31/19 16:54 03/31/19 16:54 03/31/19 16:54 - Notes Notes: GENERAL: Initially sleeping, easily arousable to verbal stimuli and then alert, interacts well. No acute distress. HEAD: Normocephalic. EYES: Pupils equal, round, and reactive to light. Extraocular movements intact. ENT: Oral mucosa moist, tongue midline. Nares patent, dentition appears uncapped, multiple obvious caries noted. Slight swelling noted left lower jaw with no obvious fluctuance or induration. NECK: Full range of motion. Supple. Trachea midline. No lymphadenopathy appreciated LUNGS: Clear to auscultation bilaterally, no wheezes, rales, or rhonchi. No respiratory distress. HEART: Regular rate and rhythm. No murmur ABDOMEN: Soft, non-tender. Non-distended. Bowel sounds present in all 4 quadrants. Ileostomy noted left lower abdomen, no surrounding erythema, swelling noted. EXTREMITIES: Moves all 4 extremities spontaneously. No edema, normal radial and dorsalis pedis pulses bilaterally. No cyanosis. BACK: no cervical, thoracic, lumbar midline tenderness. No saddle anesthesia, normal distal neurovascular exam. NEUROLOGICAL: Alert and oriented x3. Normal speech. cranial nerves II through XII grossly intact. PSYCH: Normal affect, normal mood. SKIN: Warm, dry, normal turgor. Multiple scabbed lesions noted entire face, area of erythema and slight swelling noted left lower lip, no fluctuance noted. Some lesions appear honey crusted. Course - Re-evaluation Re-evalutation: 03/31/19 22:10 Patient was initially sleeping upon my examination. She was easily arousable to verbal stimuli. Patient states she is followed at [facility]. States they typically give her clindamycin when she has "these facial infections." Patient does have poor dentition throughout. No obvious abscess felt or seen. I will treat with clindamycin. I will also treat with mupirocin as some lesions do appear to be honey crusted, consistent with impetigo. At this time will discharge with return precautions and follow-up recommendations. Verbal discharge instructions given a the bedside and opportunity for questions given. Medication warnings reviewed. Patient is in agreement with this plan and has verbalized understanding of return precautions and the need for primary care follow-up in the next 24-72 hours. This medical record was dictated with voice recognizing software. There may be grammatical, syntax errors that are unintended. - Vital Signs Vital signs: Temp Pulse Resp BP Pulse Ox 98.0 F 16 132/68 H 92 03/31/19 16:54 03/31/19 16:54 03/31/19 16:54 03/31/19 16:54 - Laboratory Result Diagrams: 03/31/19 17:26 03/31/19 17:26 Laboratory results interpreted by me: 03/31/19 03/31/19 03/31/19 17:26 17:26 19:13 RDW 17.2 H Carbon Dioxide 31 H Urine Protein 30 H Urine Urobilinogen 2.0 H Ur Leukocyte Esterase TRACE H Discharge - Discharge Clinical Impression: Impetigo, Dental caries Cellulitis Qualifiers: Site of cellulitis: face Qualified Code(s): L03.211 - Cellulitis of face Condition: Stable Disposition: HOME, SELF-CARE Instructions: Bactroban Ointment ([facility]), Impetigo ([facility]), MRSA Cellulitis ([facility]) Additional Instructions: As we discussed you have been seen and treated in the emergency department for cellulitis. Please make sure taking antibiotics as prescribed. Please also make sure using topical antibiotic ointment. Please follow-up with your primary care provider in the next 24 to 48 hours. Please return to the emergency room for any further concerns. Prescriptions: Mupirocin [Bactroban 2% Ointment 22 gm] 1 applic TP TID #1 tube Clindamycin HCl [Cleocin 300 mg Capsule] 300 mg PO BID #14 capsule Referrals: [facility] [Provider Group] - Follow up as needed [facility] [Provider Group] - Follow up as needed
[2019-03-31 22:41] VITALS: BP 107/62
== END 2019-03-31 22:41 | disposition home or self-care (01) ==
LOC: ER 16:47
DX: L03.211 Cellulitis of face (principal); K02.9 Dental caries, unspecified; L01.00 Impetigo, unspecified; R68.84 Jaw pain; F17.200 Nicotine dependence, unspecified, uncomplicated; Z86.14 Personal history of Methicillin resistant Staphylococcus aureus infection; Z98.51 Tubal ligation status; Z93.2 Ileostomy status
CPT/HCPCS: 36415; 80053; 81001; 81025; 85025; 99283